=== PATIENT | male | born 1955 | race Caucasian/White ===

== ENCOUNTER → 2020-03-22 07:04 | Outpatient (CLI) | payer MEDICARE, SELFPAY ==
--- NOTE | ~2020-03-22 | MR_ITS ---
EXAMINATION: MR lumbar spine wo con EXAM DATE: 03/22/2020 07:41 INDICATION: M54.5 - Low back pain lbp,bilat leg pain . TECHNIQUE: Multi-sequential, multiplanar MR images of the lumbar spine were obtained without contrast . Sagittal T1, T2, T2 fat saturation images. Axial T2 weighted images. Comparison is made to prior examination from 11/18/2014. FINDINGS: There is moderate to severe disc disease at L5-S1 with 3 mm anterolisthesis, mild disc dise ase at the other lumbar levels. There are no suspicious marrow signal abnormalities. The conus medull jovanni terminates at the L1/2 level and has normal signal intensity and morphology. Paraspinal soft tis roberta is unremarkable. Level by level evaluation: T12-L1: Disc does not extend beyond the endplate margin. Facet arthropathy: Mild. Neural foraminal stenosis: No stenosis. Central canal stenosis: No stenosis. L1-L2: There is a mild diffuse disc bulge. Facet arthropathy: Mild. Neural foraminal stenosis: Mild left. Central canal stenosis: No stenosis. L2-L3: There is a minimal diffuse disc bulge. Facet arthropathy: Mild. Neural foraminal stenosis: Mild bilateral. Central canal stenosis: No stenosis. L3-L4: There is a mild diffuse disc bulge. Facet arthropathy: Mild to moderate. Neural foraminal stenosis: Mild to moderate bilateral. Central canal stenosis: Mild. L4-L5: There is a mild diffuse disc bulge. Facet arthropathy: Mild. Neural foraminal stenosis: Mild to moderate left, mild right. Central canal stenosis: Mild. L5-S1: There is a moderate diffuse disc bulge. Facet arthropathy: Mild to moderate. Neural foraminal stenosis: Moderate right, mild to moderate left. Central canal stenosis: Mild. Compared to 2014, difficult to appreciate any significant interval change. IMPRESSION: 1. Moderate to severe loss of L5-S1 disc height with grade 1 anterolisthesis. 2. Otherwise mild to moderate lumbar spondylosis. Reviewed, dictated and finalized at location A. 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
== END ==
PROVIDERS: PCP Family Medicine; Visit Provider Nurse Practitioner
DX: M47.817 Spondylosis without myelopathy or radiculopathy, lumbosacral region (principal); M47.815 Spondylosis without myelopathy or radiculopathy, thoracolumbar region; M48.07 Spinal stenosis, lumbosacral region; M48.05 Spinal stenosis, thoracolumbar region
CPT/HCPCS: 72148

== ENCOUNTER 2020-04-07 10:26 | Observation (INO) | payer MEDICARE, SELFPAY ==
[2020-04-07] VITALS (51 sets, daily range): BP systolic 104–143; BP diastolic 55–88; PULSE 55–81; RESP 12–20; TEMP 35.7–36.3; O2SAT 93–100
--- NOTE | ~2020-04-07 | XR_ITS ---
EXAMINATION: XR chest 2V EXAM DATE: 04/07/2020 11:58 INDICATION: Left-sided chest pain. Headache. TECHNIQUE: Frontal and lateral projections of the chest obtained and reviewed. Comparison is made to prior examination from 03/07/2016. FINDINGS: The lungs are clear. There are no pleural effusions. The cardiomediastinal silhouette is within normal limits. There is no pneumothorax suspected. The bones and soft tissues are unremarkab le. IMPRESSION: No acute cardiopulmonary findings. Reviewed, dictated and finalized at location A. 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
--- NOTE | 2020-04-07 10:33 | ECG_ITS ---
Measurements Intervals [place] Rate: 83 P: 21 ID: 160 QRS: 16 QRSD: 110 T: 75 QT: 359 QTc: 423 Interpretive Statements SINUS RHYTHM INTRAVENTRICULAR CONDUCTION DELAY NONSPECIFIC T-WAVE ABNORMALITY- HIGH LATERAL LEADS BORDERLINE ECG Electronically Signed On 04-07-2020 10:42:18 ASSISTANT MANAGER/EMBALMER by Nicola Torres D.O.
--- NOTE | 2020-04-07 11:04 | PC.NURSE ---
unable to obtain blood at triage
[2020-04-07 11:31] LABS: Basophils Absolute Auto 0.1 K/mm3 (0.0-0.1); Basophils Percent Auto 1.1 % (0.2-1.2); Eosinophils Absolute Auto 0.6 K/mm3 (0-0.3); Eosinophils Percent Auto 9.8 % (0-4.4); Hematocrit 37.2 % (42.0-52.0); Hemoglobin 12.1 g/dL (14.0-18.0); Immature Granulocyte Absolute 0.01 K/mm3 (0.00-0.031); Immature Granulocyte Percent A 0.2 % (0-0.5); Lymphocytes Absolute Auto 1.93 K/mm3 (0.9-3.2); Lymphocytes Percent Auto 29.4 % (18.3-44.2); Mean Corpuscular HGB Conc 32.5 g/dl (32-36); Mean Corpuscular Hemoglobin 30.2 pg (26-34); Mean Corpuscular Volume 92.8 fl (80-100); Mean Platelet Volume 9.5 fl (7.4-10.4); Monocytes Absolute Auto 0.4 K/mm3 (0.1-0.6); Monocytes Percent Auto 6.4 % (2.6-8.5); Neutrophils Absolute Auto 3.5 K/mm3 (1.3-6.7); Neutrophils Percent Auto 53.1 % (45.5-73.1); Platelet Count Result 251 k/mm3 (150-375); Red Blood Count 4.01 M/mm3 (4.6-6.20); Red Cell Distribution Width 13.6 % (11.5-14.5); White Blood Count 6.6 K/mm3 (4.5-10.0)
[2020-04-07] MEDS: ASPIRIN 81 MG CHEWABLE TABLET 324 MG PO (11:33)
[2020-04-07 11:41] LABS: Partial Thromboplastin Time 25.3 SECONDS (22.3-36.8)
[2020-04-07 11:42] LABS: Anion Gap 9 mmol/L (8-16); Blood Urea Nitrogen 23 mg/dL (9-20); Calcium 9.7 mg/dL (8.4-10.2); Carbon Dioxide 27 mmol/L (22-30); Chloride 101 mmol/L (98-107); Estimated CRCL calculation 81 ml/min; Estimated Glomerular Filt Rate > 60; Glucose 261 mg/dL (75-110); Potassium 3.9 mmol/L (3.4-5.0); Sodium 137 mmol/L (137-145)
[2020-04-07 11:54] LABS: Troponin I < 0.012 ng/mL (0.000-0.034)
--- NOTE | 2020-04-07 12:38 | ED.CHESTPAIN ---
HPI - Chest Pain General Chief Complaint: Chest Pain Stated Complaint: CP Time Seen by Provider: 04/07/20 12:14 Source: patient Mode of arrival: ambulatory Limitations: no limitations History of Present Illness HPI narrative: Patient 64-year-old male complaining of chest pain, left chest radiating to left arm, 8 out of 10 earlier, accompanied by diaphoresis, now resolved, started when he we woke up this morning. Patient denies shortness of breath, abdominal pain, nausea, vomiting, fever or chills. Patient history of coronary disease with stent placement. Patient spoke to Dr. Moses and was advised to come to the emergency room. Related Data Home Medications Medication Instructions Recorded Confirmed aspirin 81 mg tablet,delayed 81 mg PO DAILY 03/15/19 03/10/20 release atorvastatin 40 mg tablet 40 mg PO DAILY 03/15/19 03/10/20 chlorthalidone 25 mg tablet 25 mg PO DAILY 03/15/19 03/10/20 irbesartan 150 mg tablet 150 mg PO DAILY 03/15/19 03/10/20 modafinil 100 mg tablet See Rx Instructions PO QAM 03/15/19 03/10/20 nitroglycerin 0.4 mg sublingual 0.4 mg SUBLINGUAL Q5M PRN 03/15/19 03/10/20 tablet metoprolol succinate 50 mg mg PO DAILY tablet 11/29/19 03/10/20 tablet,extended release 24 hr gabapentin 100 mg capsule See Rx Instructions PO DAILY 03/10/20 03/10/20 Allergies Allergy/AdvReac Type Severity Reaction Status Date / Time Tetanus Vaccines and Toxoid Allergy Unknown Nausea Verified 03/10/20 08:10 Review of Systems Review of Systems: All systems reviewed & are unremarkable except as noted in HPI and below Constitutional: Constitutional: Denies body ache(s), Denies chills, Denies excessive sweating, Denies fatigue, Denies fever(s), Denies headache(s), Denies lethargy, Denies malaise, Denies weakness and Denies weight loss Eyes: Eyes: Denies blurry vision, Denies change in vision and Denies loss of vision ENT: Denies dizziness, Denies ear discharge, Denies headache(s), Denies lip swelling, Denies epistaxis, Denies nasal congestion, Denies neck pain, Denies throat swelling and Denies tongue swelling Cardiovascular: Cardiovascular: Denies diaphoresis, Denies rapid heart rate, Denies edema, Denies irregular heart rhythm, Denies lightheadedness, Denies palpitations, Denies dyspnea and Denies dyspnea on exertion Respiratory: Respiratory: Denies chest congestion, Denies cough, Denies hemoptysis, Denies dyspnea and Denies dyspnea on exertion Gastrointestinal: Gastrointestinal: Denies abdominal pain, Denies melena, Denies hematochezia, Denies diarrhea, Denies nausea, Denies vomiting and Denies hematemesis Musculoskeletal: Musculoskeletal: Denies abnormal gait, Denies deformity, Denies joint swelling, Denies limited range of motion, Denies neck pain and Denies numbness Neurologic: Denies Abnormal speech present, Denies abnormal gait, Denies confusion, Denies dizziness, Denies headache(s), Denies focal weakness, Denies loss of vision, Denies numbness, Denies Other visual disturbances, Denies Sensory deficit (Neuro) and Denies weakness Psychiatric: Psychiatric: Denies confusion, Denies depression, Denies auditory hallucinations, Denies homicidal ideation and Denies suicidal ideation Endocrine: Endocrine: Denies cold intolerance, Denies excessive sweating, Denies fatigue, Denies heat intolerance and Denies palpitations Hematologic/Lymphatic: Hematologic/Lymphatic: Denies easy bleeding and Denies easy bruising Allergic/Immunologic: Allergic/Immunologic: Denies lip swelling, Denies throat swelling and Denies tongue swelling [facility] Past Medical History Medical History (Updated 04/07/20 @ 15:14 by Frankie Casas MD) Absence epileptic syndrome, intractable, without status epilepticus Acute pain of both shoulders Angina pectoris, unspecified Basal cell carcinoma of face Basal cell carcinoma of skin of unspecified eyelid, including canthus Chest pain on exertion Chronic obstructive pulmonary disease, unspecified Chronic pelvic
[2020-04-07] MEDS: NITROGLYCERIN OINTMENT 1 INCH DOSE TRANSDERM (13:05)
[2020-04-07 14:11] LABS: Troponin I < 0.012 ng/mL (0.000-0.034)
--- NOTE | 2020-04-07 17:07 | ADMGEN ---
This patient, Blair Lauren, was admitted to IMU Room 201-01. Patient/family oriented to hospital policies and general routines including ID bracelet, bed and alarms, visiting hours, pain management, procedures, bathroom and other care routines, personal items, smoking policy, room service/diet, and visiting hours. Information on how to activate the Rapid Response Team has been discussed. Patient/Family are encouraged to report perceived risks to care and to ask questions if they do not understand what they are told or what they should do.
[2020-04-07 17:09] LABS: Troponin I < 0.012 ng/mL (0.000-0.034)
--- NOTE | 2020-04-07 17:51 | PC.NURSE ---
belongings locked in closet in room
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
[2020-04-07 20:31] LABS: Hemoglobin A1C 5.7 % (<5.7)
[2020-04-07 20:37] LABS: Glucose Point of Care 133 (65-105)
[2020-04-07] MEDS: ATORVASTATIN 40 MG TABLET PO (21:05)
[2020-04-07] MEDS: IRBESARTAN 150 MG TABLET PO (21:06)
[2020-04-07] MEDS: GABAPENTIN 400 MG CAPSULE PO (21:06)
[2020-04-07] MEDS: GABAPENTIN 100 MG CAPSULE PO (21:06)
[2020-04-07] MEDS: METOPROLOL SUCCINATE EXT REL 50 MG TABCR PO (21:07)
--- NOTE | 2020-04-07 21:27 | PC.NURSE ---
received pt from [facility] report from Katherine lawrence. Pt in room as of 2109.
[2020-04-07] MEDS: ACETAMINOPHEN 500 MG TABLET 1000 MG PO (23:18)
[2020-04-08] VITALS (10 sets, daily range): BP systolic 115–126; BP diastolic 69–76; PULSE 58–72; RESP 14–18; TEMP 35.6–36.4; O2SAT 94–96
--- NOTE | 2020-04-08 | ECHO_ITS ---
Patient Info Name: Blair Lauren Age: 64 years : 1955 Gender: Male Ht: 70 in Wt: 293 lbs BSA: 2.62 m2 HR: 60 bpm BP: 115 / 69 mmHg Heart Rhythm: Sinus Rhythm Technical Quality: Good Exam Date: 04/08/2020 8:17 AM Exam Location: [facility] Pulmonary Exam Room: 201 Patient Status: Inpatient Admit Date: 04/07/2020 Staff Ordering Physician: Megan Lorenzo NP Dental Appliance Repairer: Nellie Blackwell RDCS Attending Provider: Karthikeyan Peng MD Referring Physician: Maura HOWARD; Exam Type: CA echo doppler color flow Study Info Indications - cad /stents sob chest pain Complete two-dimensional, color flow and Doppler transthoracic echocardiogram is performed. History/Risk Factors Coronary Artery Disease (CAD) Yes Prior Interventions PCI: Yes Summary 1. Left ventricular systolic function is normal, estimated at 60-65%. 2. There is no increased left ventricular wall thickness. 3. The left ventricular diastolic function is grade I diastolic dysfunction. 4. Left atrial chamber dimension is mildly enlarged. 5. Right atrial chamber dimension is mildly enlarged. 6. There is no aortic valve stenosis. 7. There is trace mitral valve regurgitation. 8. There is trace tricuspid valve regurgitation. 9. Upper limits of normal pulmonary pressures with estimated pulmonary arterial systolic pressure of 35 mmHg. 10. There is small pericardial effusion. 11. Normal inferior vena cava with approximately 50% collapse upon inspiration consistent with normal right atrial pressure, 8 mmHg. Left Ventricle Left ventricular chamber dimension is normal. Left ventricular systolic function is normal, estimated at 60-65%. There is no increased left ventricular wall thickness. The left ventricular diastolic function is grade I diastolic dysfunction. Right Ventricle Right ventricular chamber dimension is normal. Right ventricular systolic function is normal. Prominent moderator band. Left Atria Left atrial chamber dimension is mildly enlarged. Right Atria Right atrial chamber dimension is mildly enlarged. Aortic Valve The aortic valve is probable trileaflet. There is no aortic valve stenosis. There is no aortic valve regurgitation. Pulmonic Valve The pulmonic valve is not well visualized. Mitral Valve The mitral valve has normal leaflets. There is trace mitral valve regurgitation. The mitral valve annulus is mildly calcified. Tricuspid Valve The tricuspid valve leaflets are normal. There is trace tricuspid valve regurgitation. Upper limits of normal pulmonary pressures with estimated pulmonary arterial systolic pressure of 35 mmHg. Pericardium/Pleural The pericardium appears normal. There is small pericardial effusion. Inferior Vena Cava Normal inferior vena cava with approximately 50% collapse upon inspiration consistent with normal right atrial pressure, 8 mmHg. Aorta The aortic root size at the sinus of Valsalva is normal. Left Ventricular Outflow Tract Name Value Normal LVOT 2D LVOT Diameter 2.1 cm LVOT Doppler LVOT Peak Gradient 4 mmHg
[2020-04-08 04:53] LABS: Basophils Absolute Auto 0.1 K/mm3 (0.0-0.1); Basophils Percent Auto 1.2 % (0.2-1.2); Eosinophils Absolute Auto 0.8 K/mm3 (0-0.3); Eosinophils Percent Auto 10.1 % (0-4.4); Hematocrit 36.3 % (42.0-52.0); Hemoglobin 11.7 g/dL (14.0-18.0); Immature Granulocyte Absolute 0.02 K/mm3 (0.00-0.031); Immature Granulocyte Percent A 0.3 % (0-0.5); Lymphocytes Absolute Auto 2.13 K/mm3 (0.9-3.2); Lymphocytes Percent Auto 28.8 % (18.3-44.2); Mean Corpuscular HGB Conc 32.2 g/dl (32-36); Mean Corpuscular Hemoglobin 29.8 pg (26-34); Mean Corpuscular Volume 92.6 fl (80-100); Mean Platelet Volume 9.7 fl (7.4-10.4); Monocytes Absolute Auto 0.7 K/mm3 (0.1-0.6); Neutrophils Absolute Auto 3.7 K/mm3 (1.3-6.7); Neutrophils Percent Auto 49.6 % (45.5-73.1); Platelet Count Result 251 k/mm3 (150-375); Red Blood Count 3.92 M/mm3 (4.6-6.20); Red Cell Distribution Width 13.8 % (11.5-14.5); White Blood Count 7.4 K/mm3 (4.5-10.0)
[2020-04-08 05:07] LABS: Alanine Aminotransferase 37 U/L (4-50); Albumin Level 4.1 g/dL (3.5-5.1); Alkaline Phosphatase 53 U/L (38-126); Anion Gap 8 mmol/L (8-16); Aspartate Amino Transferase 28 U/L (17-59); Bilirubin,Total 0.5 mg/dL (0.2-1.3); Blood Urea Nitrogen 21 mg/dL (9-20); Calcium 9.6 mg/dL (8.4-10.2); Carbon Dioxide 29 mmol/L (22-30); Chloride 101 mmol/L (98-107); Estimated CRCL calculation 88 ml/min; Estimated Glomerular Filt Rate > 60; Glucose 108 mg/dL (75-110); Lactate Dehydrogenase 298 U/L (313-618); Lipase 55 U/L (23-300); Magnesium 1.7 mg/dL (1.6-2.3); Potassium 3.9 mmol/L (3.4-5.0); Sodium 138 mmol/L (137-145)
[2020-04-08 08:19] LABS: Glucose Point of Care 117 (65-105)
[2020-04-08] MEDS: ASPIRIN 81 MG ENTERIC TABLET PO (08:49)
[2020-04-08] MEDS: CHLORTHALIDONE 25 MG TABLET PO (08:49)
[2020-04-08] MEDS: ACETAMINOPHEN 325 MG TABLET 650 MG PO (09:03)
--- NOTE | 2020-04-08 09:42 | PM.CNCAR ---
Assessment and Plan Assessment and plan (1) Chest pain: Code(s): R07.9 - Chest pain, unspecified Status: Acute Assessment and Plan: Self-limited, resolved spontaneously similar to but more intense than his typical angina. Ruled out for TX with negative serial enzymes, EKG without acute ischemic changes. Patient feels well would like to be discharged but recommend outpatient ischemic evaluation provided patient remains asymptomatic. If any recurrent chest pain suggestive of unstable angina may warrant invasive angiography this hospitalization. We discussed all these options in detail. Patient understands and all questions answered to his satisfaction. Continue home cardiovascular medical therapy. We discussed long-acting nitrate, however, he is comfortable this current regimen at this time. Provided he remains asymptomatic and feels well he will be discharged home per hospitalist service to contact the office Friday morning to set up a Lexiscan nuclear stress test to assess for myocardial ischemia. He has been advised should he have significant recurrent symptoms to present to the emergency department for evaluation once again. We did discuss the possibility of progressive/escalating symptoms and other risk for myocardial infarction in general. Understand this risk he wishes to be discharged home with close communication as appropriate. Continue aspirin 81 mg daily, Toprol XL 50 mg daily, irbesartan 150 mg daily, atorvastatin 40 mg at bedtime. (2) CAD (coronary artery disease): Code(s): I25.10 - Atherosclerotic heart disease of [place] coronary artery without angina pectoris Status: Acute Assessment and Plan: As above, continue aggressive medical therapy, antianginals as appropriate. Continue beta-carmen, nitrate, statin. Aggressive risk modification counseling. (3) Benign essential hypertension: Onset Date: ~1993 Code(s): I10 - Essential (primary) hypertension Status: Chronic Assessment and Plan: Stable, no acute issues at this time. (4) Mixed hyperlipidemia due to type 2 diabetes mellitus: Onset Date: ~2014 Code(s): E11.69 - Type 2 diabetes mellitus with other specified complication; E78.2 - Mixed hyperlipidemia Status: Chronic Assessment and Plan: Statin therapy. S risk modification counseling. (5) CALI (obstructive sleep apnea): Onset Date: ~2008 Code(s): G47.33 - Obstructive sleep apnea (adult) (pediatric) Status: Chronic Assessment and Plan: Compliant with BiPAP. (6) Type 2 diabetes mellitus with other circulatory complications: Code(s): E11.59 - Type 2 diabetes mellitus with other circulatory complications Status: Acute Assessment and Plan: Per hospitalist service. (7) Morbid (severe) obesity due to excess calories: Onset Date: 07/15/16 Code(s): E66.01 - Morbid (severe) obesity due to excess calories Status: Acute Assessment and Plan: Lifestyle modification counseling for weight loss, reduction in caloric intake. History of Present Illness History of Present Illness Consult date/time: Date of service: 04/08/20 09:42 Cardiology consultation at the request of Megan Lorenzo of the [facility] for our opinion regarding chest pain and history of CAD. Requesting physician: Megan Lorenzo NP Consult reason: chest pain Reason For Visit: chest pain Narrative: Patient is a very pleasant 64-year-old male with a history of significant sleep apnea compliant with BiPAP, history of CAD with prior stenting 3.5 x 18 mm Xience drug-eluting stent to 95% stenosis of 2nd obtuse marginal branch March 11, [address] Moses at [facility], hypertension, family history of premature atherosclerosis who states he was in his usual state of health he stated he began to feel unwell quite fatigued. He decided to go to bed early but then awoke few hours later
--- NOTE | 2020-04-08 10:37 | P.PCNCC_ITS ---
Cardiac Cath Procedure Note Date of procedure:: 04/08/20 Performing physician:: Altaf Laguna MD Assessment and Plan Additional Plan INDICATION: 1. NSTEMI HISTORY Patient presented with acute sever chest pain, rising cardiac enzymes, persistent pain despite NTG infusion PROCEDURES 1. Coronary angiogram 2. LHC 3. PTCA to proximal PDA Culprit lesion of NSTEMI 4. PTCA to proximal RCA ACCESS SITE Rt radial SEDATION: Versed 1 mg and Fentanyl 50 mcg and fentanyl start time 9:42, End 1035, patient observed by trained nurse and medication given under my supervision. PROCEDURE DETAILS Consent obtained and time out done. Access site prepped and draped in sterile fashion. Moderate sedation given with versed and fentanyl and tolerated well, see nurses note for doses Access obtained with modified Seldinger technique with no difficulty. Coronary angiogram was recorded using JR4 and TIG4 catheter in different angels LHC was done with TIG 4 catheter HEMODYNAMIC FINDINGS BP 130/80 LVEDP 5 No gradient across AV ANGIOGRAPHIC FINDINGS 1. Left main: mild 40% in mid left main, gives LAD and LCX 2. LAD: large vessel with proximal to mid LAD stent patent, LAD gives large diagonal with patent stent and severe 80% lesion after stent. 3. LCX: Non dominant vessel gives on large OM, OM branch with proximal diffuse 50% stenosis 4. RCA: Dominant vessel gives rPDA and rPL. Proximal RCA has 80% stenosis, mid R CA with patent stent, PDA has proximal 99% subtotal occlusion/ISR, followed by BISCUIT MAKER in apical PDA stent. Apical PDA received collaterals from LAD PCI DETAILS LESION #1: proximal PDA Pre intervention Lesion: acute subtotal occlusion of proximal PAD culprit lesion of NSTEMI, class C, SANDIP 1 Guide catheter: JR4 Anticoagulation: Heparin to target ACT > 250 sec Antiplatelet therapy: ASA and Ticagrelor given Guide wire: Samurai used to cross to distal vessel Balloon dilation was done with 2.0 * 15 mm balloon at 18 MIKIE Post intervention: residual stenosis 50% and SANDIP 3 flow established LESION #2 Pre intervention Lesion: sever proximal RCA ISR, 80% stenosis, unknown type and duration of stent, SANDIP 3 Guide catheter: JR4 Anticoagulation: Heparin to target ACT > 250 sec Antiplatelet therapy: ASA and Ticagrelor given Guide wire: Samurai used to cross to distal vessel Balloon dilation was done with [place] 3.5 * 15 mm balloon at 20 MIKIE Post intervention: residual stenosis 50% and SANDIP 3 flow, IFR was done for RCA and was 0.92 at end of procedure IFR to LAD and LCX Guide catheter CLS 3 IFR wire advanced into end of catheter and equalization done Wire advanced into LAD and LCX and IF measured 0.91 and 0.92 respectively. Wire removed and angiogram showed no dissection, perforation and SANDIP 3 flow. COMPLICATION: None Estimated blood loss: 30 ml patient tolerated procedure well, minor chest pain at end of procedure (05/14), awake, intact pulses and following commands CONCLUSION Acute sutotal occlusion of proximal PDA s/p PTCA sever proximal RCA ISR, s/t PTCA, final IFR in RCA 0.92, residual stenosis but needs cutting balloon or laser therapy in proximal RCA Residual small vessel disease, BISCUIT MAKER apical PDA, 90% lesion in mid rPL, 80% lesion in D1. RECOMMENDATION DAPT for at least one year Optimal medical therapy for CAD
--- NOTE | 2020-04-08 11:41 | PM.IMPN ---
Progress Note: A&P Assessment and Plan (1) Chest pain due to CAD: Code(s): I25.119 - Atherosclerotic heart disease of [place] coronary artery with unspecified angina pectoris Status: Acute Assessment and Plan: Patient's troponins are negative x3. He has had a history of having a coronary stent in the past. He has also had stress test in the past that were negative. He has had a cardiac catheterization after stent was placed and appeared to be patent. He is a patient of Dr. Moses nurse. Patient had relief of discomfort after he was given an aspirin and nitro. The patient stated that he does have nitro at home. The patient has multiple bulging disc and some chronic neck pain. I am wondering if this is in some type of discomfort due to his back problems. We also discuss the possibility of a PE. The patient is not hypoxic or tachypneic so after discussing this with the patient we decided to hold off on a CT ate this time. Further recommendation per Cardiology as they have been consulted. Will continue with p.r.n. nitro and his daily aspirin. I am holding his narcolepsy medicine at this time as the side effects could be chest pain. I ordered an echo for the patient. (2) Type 2 diabetes mellitus with other circulatory complications: Code(s): E11.59 - Type 2 diabetes mellitus with other circulatory complications Status: Acute Assessment and Plan: Will continue with patient's glipizide. Check his A1c and continue with sliding scale insulin. Patient has neuropathy continue with the gabapentin. (3) Other hyperlipidemia: Onset Date: ~2008 Code(s): E78.49 - Other hyperlipidemia Status: Chronic Assessment and Plan: Continue with atorvastatin (4) CALI (obstructive sleep apnea): Onset Date: ~2008 Code(s): G47.33 - Obstructive sleep apnea (adult) (pediatric) Status: Chronic Assessment and Plan: The patient sees a specialist in [place]. Feels that he needs his settings adjusted as well. He has not been able to return to the specialist due to the COVID outbreak. For now will continue with his current settings that he uses at home. The patient states that he is very diligent about using his CPAP machine. (5) Benign essential hypertension: Onset Date: ~1993 Code(s): I10 - Essential (primary) hypertension Status: Chronic Assessment and Plan: Continue with metoprolol and chlorthalidone. Continue with Avapro (6) Benign prostatic hyperplasia without lower urinary tract symptoms: Onset Date: ~2017 Code(s): N40.0 - Benign prostatic hyperplasia without lower urinary tract symptoms Status: Chronic Assessment and Plan: The patient had a cystoscopy in the past with urethral dilatation. Subjective Date/time seen: 04/08/20 11:42 Interval history: Patient was seen during the morning rounds in the morning. No sob or chest pain, mood stable. Review of Systems Review of Systems: All systems reviewed & are unremarkable except as noted in HPI and below Constitutional: Constitutional: Reports as per HPI and Reports no additional constitutional complaints Eyes: Eyes: Reports as per HPI and Reports no additional eye complaints ENT: Reports system reviewed and no additional complaints, except as documented and Reports Normal hearing present Cardiovascular: Cardiovascular: Reports no additional cardiovascular complaints Respiratory: Respiratory: Reports no additional respiratory complaints and Reports no additional respiratory complaints Gastrointestinal: Gastrointestinal: Reports as per HPI and Reports no additional gastrointestinal complaints Musculoskeletal: Musculoskeletal: Reports no additional musculoskeletal complaints Integumentary/Breasts: Skin/Breast: Reports system reviewed and no additional complaints, except as docu and Reports as per HPI Neurologic: Reports system reviewed and no additional compla
[2020-04-08 12:10] LABS: Glucose Point of Care 96 (65-105)
--- NOTE | 2020-04-09 01:14 | DS_ITS ---
DATE OF DISCHARGE: 04/08/2020 ADMITTING DIAGNOSES: 1. Chest pain. 2. Type 2 diabetes. 3. Hyperlipidemia. FINAL DIAGNOSES: 1. Coronary artery disease, atypical chest pain. 2. History of diabetes type 2. 3. History of hyperlipidemia. 4. History of obstructive sleep apnea. 5. History of hypertension. 6. History of benign prostatic hypertrophy. The patient is 64-year-old male with history of multiple medical problems including sleep apnea requiring CPAP treatment, history of hypertension, hyperlipidemia, coronary artery disease. The patient is admitted to have chest pain. PHYSICAL EXAMINATION: Normal. The patient has blood pressure of 126/67, temperature 36.3, pulse rate 81, respirations 18. LABORATORY DATA: Important lab data showed the patient has nonspecific ST-T changes, normal sinus rhythm. WBC count 6.6, hemoglobin 12.1, sodium 137, potassium 3.9. BUN and creatinine were normal. The patient had 3 sets of cardiac enzymes and troponin was negative. Chest x-ray was normal. After consultation with radiologist, mat linker, patient was discharged home in stable condition. Cardiac diet and activity as tolerated. Follow the primary care physician in about 1 week. Condition at time of discharge is stable. The patient is advised to continue his home medication and follow up the primary care physician in about 1 week. The patient is advised to take: 1. Aspirin 81 mg p.o. daily. 2. Atorvastatin 40 mg p.o. q. day. 3. Chlorthalidone 25 mg p.o. q. day. 4. Irbesartan 150 mg every night. 5. Modafinil 50 mg p.o. b.i.d. 6. Nitroglycerin sublingual tablet as needed q.5 minutes. 7. Metoprolol 50 mg everyday. 8. Gabapentin 500 mg everyday. 9. The patient is also advised to take glipizide 2.5 mg p.o. q. day. Condition at time of discharge is stable. Activity as tolerated. Follow up with primary care physician and Cardiology outpatient next week. D I MT: Levi
== END 2020-04-08 12:54 | disposition home or self-care (01) ==
LOC: ANHED 15:14 → ANHIMU 16:30
PROVIDERS: Emergency Medicine; Nurse Practitioner; Admitting Provider Internal Medicine; Emergency Provider Emergency Medicine; PCP Family Medicine; Visit Provider Internal Medicine
DX: I25.119 Atherosclerotic heart disease of native coronary artery with unspecified angina pectoris (principal); E11.59 Type 2 diabetes mellitus with other circulatory complications; E78.49 Other hyperlipidemia; G47.33 Obstructive sleep apnea (adult) (pediatric); I13.0 Hypertensive heart and chronic kidney disease with heart failure and stage 1 through stage 4 chronic kidney disease, or unspecified chronic kidney disease; N40.0 Benign prostatic hyperplasia without lower urinary tract symptoms; I31.3 Pericardial effusion (noninflammatory); R07.9 Chest pain, unspecified; G40.A19 Absence epileptic syndrome, intractable, without status epilepticus; J44.9 Chronic obstructive pulmonary disease, unspecified; E66.01 Morbid (severe) obesity due to excess calories; Z68.41 Body mass index [BMI] 40.0-44.9, adult; Z79.01 Long term (current) use of anticoagulants; Z79.82 Long term (current) use of aspirin; Z79.899 Other long term (current) drug therapy; Z99.89 Dependence on other enabling machines and devices; Z95.5 Presence of coronary angioplasty implant and graft
CPT/HCPCS: 36415; 71046; 80048; 80053; 82728; 83036; 83615; 83690; 83735; 84443; 84484; 85025; 85610; 85730; 93005; 93306; 94660; 99285; A9270; G0378

== ENCOUNTER 2020-05-12 02:04 | Outpatient (CLI) | payer MEDICARE, SELFPAY ==
[2020-05-12 17:23] LABS: SARS-CoV-2 RNA PCR Negative
== END 2020-05-12 02:05 | disposition home or self-care (01) ==
LOC: ANHCOVIDDT 02:05
PROVIDERS: PCP Family Medicine; Visit Provider Specialist
DX: Z01.812 Encounter for preprocedural laboratory examination (principal); Z20.822 Contact with and (suspected) exposure to COVID-19
CPT/HCPCS: C9803; U0003

== ENCOUNTER 2020-05-15 01:28 | Day surgery (SDC) | payer MEDICARE, SELFPAY ==
[2020-05-12 16:35] VITALS: BMI 43.0
[2020-05-15] VITALS (8 sets, daily range): BP systolic 103–127; BP diastolic 59–90; PULSE 60–77; RESP 13–24; TEMP 36–36.7; O2SAT 92–98; BMI 42.6
[2020-05-15 09:09] LABS: Basophils Absolute Auto 0.1 K/mm3 (0.0-0.1); Basophils Percent Auto 1.4 % (0.2-1.2); Eosinophils Absolute Auto 0.9 K/mm3 (0-0.3); Eosinophils Percent Auto 12.7 % (0-4.4); Hemoglobin 12.4 g/dL (14.0-18.0); Immature Granulocyte Absolute 0.01 K/mm3 (0.00-0.031); Immature Granulocyte Percent A 0.1 % (0-0.5); Lymphocytes Absolute Auto 2.04 K/mm3 (0.9-3.2); Lymphocytes Percent Auto 29.4 % (18.3-44.2); Mean Corpuscular HGB Conc 32.6 g/dl (32-36); Mean Corpuscular Hemoglobin 29.7 pg (26-34); Mean Corpuscular Volume 91.1 fl (80-100); Mean Platelet Volume 9.2 fl (7.4-10.4); Monocytes Absolute Auto 0.7 K/mm3 (0.1-0.6); Monocytes Percent Auto 9.7 % (2.6-8.5); Neutrophils Absolute Auto 3.2 K/mm3 (1.3-6.7); Neutrophils Percent Auto 46.7 % (45.5-73.1); Platelet Count Result 278 k/mm3 (150-375); Red Blood Count 4.17 M/mm3 (4.6-6.20); Red Cell Distribution Width 13.8 % (11.5-14.5); White Blood Count 6.9 K/mm3 (4.5-10.0)
[2020-05-15 09:18] LABS: Prothrombin Time 13.8 Seconds (11.1-14.7)
[2020-05-15 09:22] LABS: Anion Gap 8 mmol/L (8-16); Blood Urea Nitrogen 22 mg/dL (9-20); Calcium 9.3 mg/dL (8.4-10.2); Carbon Dioxide 29 mmol/L (22-30); Chloride 103 mmol/L (98-107); Estimated CRCL calculation 82 ml/min; Estimated Glomerular Filt Rate > 60; Glucose 117 mg/dL (75-110); Potassium 4.3 mmol/L (3.4-5.0); Sodium 140 mmol/L (137-145)
--- NOTE | 2020-05-15 09:24 | SUR.PREOP ---
Patient arrives ambulatory to [facility] room 5 for planned cardiac cath today. Patient A & O x 4 upon arrival, denies pain, VSS. PIV initiated and labs obtained. Consent signed. Patient updated on plan of care and verbalizes understanding. Will continue to closely monitor patient.
--- NOTE | 2020-05-15 09:57 | WPDMODSED ---
Moderate Sedation Note-Pt Data Patient Data Diagnosis: Coronary artery disease with previous circumflex stenting Morbid obesity Present Complaint: Intermittent chest pain largely atypical of angina Procedure to be performed/Plan: Mildly abnormal nuclear stress test Allergies Allergy/AdvReac Type Severity Reaction Status Date / Time Tetanus Vaccines and Toxoid Allergy Unknown Nausea Verified 05/12/20 16:39 Home Medications Medication Instructions Recorded Confirmed Type aspirin 81 mg tablet,delayed 81 mg PO DAILY 03/15/19 05/12/20 History release atorvastatin 40 mg tablet 40 mg PO HS 03/15/19 05/12/20 History chlorthalidone 25 mg tablet 25 mg PO DAILY 03/15/19 05/12/20 History irbesartan 150 mg tablet 150 mg PO HS 03/15/19 05/12/20 History modafinil 100 mg tablet 50 mg PO BID 03/15/19 05/12/20 History nitroglycerin 0.4 mg sublingual 0.4 mg SUBLINGUAL Q5M PRN 03/15/19 05/12/20 History tablet metoprolol succinate 50 mg 50 mg PO HS tablet 11/29/19 05/12/20 History tablet,extended release 24 hr gabapentin 100 mg capsule 500 mg PO HS 03/10/20 05/12/20 History glipizide 2.5 mg PO QPM 04/07/20 05/12/20 History blood sugar diagnostic See Rx Instructions .ROUTE 05/01/20 05/12/20 Rx .COMPLEX #100 strip lancets See Rx Instructions .ROUTE 05/01/20 05/12/20 Rx .COMPLEX #100 ea Current Medications: Active Medications Sodium Chloride (Normal Saline Iv) 500 mls @ 100 mls/hr IV CONT .Q5H MARQUITA Sedation/Anesthesia: No previous sedation/anesthesia problems (including family history). [facility] Past Medical History Medical History Absence epileptic syndrome, intractable, without status epilepticus Acute pain of both shoulders Angina pectoris, unspecified Basal cell carcinoma of face Basal cell carcinoma of skin of unspecified eyelid, including [place]hus Chest pain on exertion Chronic obstructive pulmonary disease, unspecified Chronic pelvic pain in male Class 3 severe obesity with serious comorbidity and body mass index (BMI) of 45.0 to 49.9 in adult (~2007) Concussion with loss of consciousness of 30 minutes or less, sequela Continuous LUQ abdominal pain Coronary artery disease involving [place] coronary artery of [place] heart with unstable angina pectoris Coronary artery disease involving [place] heart without angina pectoris Dermatofibroma Encounter for counseling regarding immunization (~2017) Encounter for prostate cancer screening (~2007) History of basal cell carcinoma (BCC) Hypertensive heart disease with heart failure and stage 3 chronic kidney disease (~2015) Left leg swelling (~2016) skilled nursing current use of anticoagulants with INR goal of 2.5-3.5 (~2015) Lumbosacral radiculopathy due to degenerative joint disease of spine (~2015) MCI (mild cognitive impairment) with memory loss (~2018) Migraine with aura, not intractable, without status migrainosus (~2014) Mixed hyperlipidemia due to type 2 diabetes mellitus (~2014) Muscle strain (~2017) Negative depression screening (~2018) Numbness of face (~2018) CALI (obstructive sleep apnea) (~2008) Other chronic pain (~2008) Other hyperlipidemia (~2008) Other intervertebral disc disorders, lumbosacral region (~2008) Post-traumatic hypersomnia Primary osteoarthritis involving multiple joints (~2008) Restless legs syndrome (~2014) Screening for colon cancer (~2017) Screening for diabetes mellitus (~2017) Skin cancer screening (~2017) Skin neoplasm malignant Stress due to family tension (~2017) Testosterone insufficiency (~2015) Surgical History Surgical History H/O cystoscopy With urethral dilatation History of removal of pigmented skin lesion Mainly on the face Presence of coronary angioplasty implant and graft Status post colonoscopy with polypectomy (~2017) Family History Family History Mother
--- NOTE | 2020-05-15 10:40 | WPDCARDPROC ---
Cardiac Cath Procedure Note Date of procedure:: 05/15/20 Performing physician:: Nathan Moses MD Indication:: History of coronary artery disease with previous PCI to the circumflex 9 years ago atypical chest pain abnormal nuclear stress Brief clinical history:: this is a 64-year-old man with coronary disease who was treated with stenting of his circumflex and 2012. He has done very well since then the patient is also morbidly obese and diabetic. He has some recent intermittent chest pain that is by history atypical of angina a Lexiscan nuclear study was interpreted as showing an anterior apical perfusion abnormality Procedure Procedure performed:: left ventriculography coronary angiography Angio-Seal to right femoral artery Sedation/Medication given:: fentanyl 50 mg Versed 2 mg case start time 1022 a.m. case end time 10:36 a.m. sedation provided by Gabreila Bailey RN, trained observer Access site:: right femoral artery Estimated blood loss:: 10-15 cc Procedure note:: patient brought to the cardiac catheterization lab where the right femoral triangle was prepared in the usual sterile fashion. Anesthesia was given 1% lidocaine infiltrated locally. Using the modified Seldinger technique a 5 [place] sheath was placed into the right femoral artery after this left heart catheterization was carried out the patient initially had a pigtail catheter used to perform a left ventriculogram in the CH projection as well as to document left-sided hemodynamics. Following this the left coronary was injected using a standard 5 [place] FL4 catheter. The right coronary was injected using a standard 5 [place] JR4 catheter. After this the cineangiograms were then reviewed. The case was terminated. An angiogram was done of the femoral artery through the sheath after which a 6 [place] Angio-Seal device was used to secure hemostasis. 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 Findings:: Hemodynamics: Central aortic pressure is 105/58 left ventricle 105/0 end-diastolic 12 a no systolic gradient on pullback across the aortic valve. Left ventricle: The LV is normal in size all segments contract appropriately the global ejection fraction by visual estimation is 55%. Left main coronary artery is widely patent and large in caliber the LAD is a medium caliber vessel extending down to around the apex also providing the apical inferior wall as well. The LAD and its branches are angiographically unremarkable. The circumflex is a large caliber vessel giving rise to the marginal branches the circumflex in its mid to distal portion has previously deployed stent material the entire circumflex including this previous lesion is found to be widely patent. There is no evidence of progressive disease in the circumflex or loss of lumen in the stented segment right coronary artery is large in caliber and dominant to the posterior circulation. The right coronary is free of significant disease in the 2nd portion there is a 30% stenosis. Conclusion:: 1. Right coronary dominant circulation with no significant coronary lesions 2. previously stented circumflex site remains widely patent 9 years later 3. minimal plaquing in the mid RCA as described above 4. normal left ventricular systolic function 5. successful Angio-Seal to right femoral artery Nathan Moses MD [facility]
--- NOTE | 2020-05-15 13:03 | PM.DS ---
DS: Admitting Diagnosis Admitting Diagnosis Admitting Diagnosis: Coronary artery disease with previous PCI to the circumflex Atypical chest pain Abnormal nuclear stress test DS: Discharge Diagnosis Discharge Diagnosis (1) Chest pain: Code(s): R07.9 - Chest pain, unspecified Status: Acute (2) CAD (coronary artery disease): Code(s): I25.10 - Atherosclerotic heart disease of [place] coronary artery without angina pectoris Status: Acute DS: Summary Hospital Course Reason for hospitalization: Left heart catheterization Hospital Course: 64-year-old man was admitted today for elective left heart catheterization to investigate an abnormal nuclear stress test. He has a history of coronary disease with stenting of his circumflex 9 years ago. He has done well since then. Principal comorbidity and also includes morbid obesity. The patient has been reporting symptoms of intermittent chest pain that are atypical of angina. A nuclear stress test was done as an outpatient suggesting evidence of anteroseptal ischemia. For this reason for a follow-up angiogram was recommended for today. Patient underwent left heart catheterization via the right groin without any complications. He is found to have patent coronary arteries the stented segment of the circumflex remains widely patent with no loss of lumen he has a modest 30% area of stenosis in the midportion of the large dominant RCA. Left ventricular function was normal. His stress test is obviously a false positive and his symptoms are not related to ischemia. An Angio-Seal device was done of the femoral artery at the conclusion of his angiogram following bedrest he is being discharged home in good condition. Follow-up in the office will be as previously scheduled in 6 months from now. Status at Discharge Functional status at discharge: independent ambulation Time Spent with Patient Time attestation: Total time spent providing and/or coordinating discharge services: Exam Const: General: comfortable and no acute distress Other: Pleasant overweight gentleman no apparent distress HENMT: Mouth: Yes moist mucous membranes Eyes: Sclera: sclerae normal Pupils: Equal, round and reactive pupils present Neck: Neck: supple and no JVD Thyroid: thyroid normal Resp: Effort & Inspection: normal respiratory effort Auscultation: clear to auscultation bilaterally Cardio: Rate: regular rate Rhythm: regular rhythm Other: PMI not palpable no gallop no murmur no rub GI: GI Palp: Yes Soft to palpation Auscultation: normal bowel sounds Skin: General skin exam: normal color Extrem: General: normal to inspection DS: Data Data Completed and Pending Labs on day of discharge: Labs from last 24 hours 05/15/20 05/15/20 05/15/20 08:59 08:59 08:59 WBC 6.9 RBC 4.17 L Hgb 12.4 L Hct 38.0 L MCV 91.1 MCH 29.7 MCHC 32.6 RDW 13.8 Plt Count 278 MPV 9.2 Immature Gran % (Auto) 0.1 Neut % (Auto) 46.7 Lymph % (Auto) 29.4 [place] % (Auto) 9.7 H Eos % (Auto) 12.7 H Baso % (Auto) 1.4 H Lymph # (Auto) 2.04 [place] # (Auto) 0.7 H Eos # (Auto) 0.9 H Baso # (Auto) 0.1 Abs Immat Gran (auto) 0.01 Absolute Neuts (auto) 3.2 Absolute Nucleated RBC 0.0 Nucleated RBC % 0.0 PT 13.8 INR 1.0 Sodium 140 Potassium 4.3 Chloride 103 Carbon Dioxide 29 Anion Gap 8 BUN 22 H Creatinine 1.10 Estim Creat Clear Calc 82 Estimated GFR > 60 Glucose 117 H Calcium 9.3 Discharge Plan Discharge Patient Disposition: Home, Self-Care Stand Alone Forms: General Discharge Instructions Discharge Medications: No Action modafinil 100 mg tablet 50 mg PO BID RF: 0 aspirin [Adult Low Dose Aspirin] 81 mg tablet,delayed release (DR/EC) 81 mg PO DAILY RF: 0 atorvastatin 40 mg tablet 40 mg PO HS RF: 0 nitroglycerin 0.4 mg tablet, sublingual 0.4 mg SUBLINGUAL Q5M PRN (Reas
--- NOTE | 2020-05-15 14:04 | SUR.PHASEII ---
Patient discharged via wheelchair by staff and picked up by via vehicle. PIV removed intact. Patient denies pain at time of discharge. No bleeding noted on dressing, site soft and nontender. Palpable distal pulse. Patient given discharge instructions and verbalizes understanding of all education provided, including follow up care, wound care, and S/S of heart attack.
== END 2020-05-15 14:00 | disposition home or self-care (01) ==
PROVIDERS: PCP Family Medicine; Visit Provider Specialist
PROC: 4A023N7 Measurement of Cardiac Sampling and Pressure, Left Heart, Percutaneous Approach (ICD-10-PCS; CPT 93452; principal; 2020-05-15 10:00)
DX: I25.10 Atherosclerotic heart disease of native coronary artery without angina pectoris (principal); R07.89 Other chest pain; R94.39 Abnormal result of other cardiovascular function study; I13.0 Hypertensive heart and chronic kidney disease with heart failure and stage 1 through stage 4 chronic kidney disease, or unspecified chronic kidney disease; I50.9 Heart failure, unspecified; E11.22 Type 2 diabetes mellitus with diabetic chronic kidney disease; Z79.82 Long term (current) use of aspirin; J44.9 Chronic obstructive pulmonary disease, unspecified; N18.30 Chronic kidney disease, stage 3 unspecified; E78.2 Mixed hyperlipidemia; G47.33 Obstructive sleep apnea (adult) (pediatric); G40.909 Epilepsy, unspecified, not intractable, without status epilepticus; Z79.01 Long term (current) use of anticoagulants; Z95.1 Presence of aortocoronary bypass graft; E66.01 Morbid (severe) obesity due to excess calories; Z68.41 Body mass index [BMI] 40.0-44.9, adult; Z95.5 Presence of coronary angioplasty implant and graft
CPT/HCPCS: 36415; 80048; 85025; 85610; 93458; C1760; C1887; C1894; C9803; G0269; J1644; J2250; J3010; J7040; U0003

== ENCOUNTER → 2020-05-18 10:39 | Outpatient (CLI) | payer MEDICARE, SELFPAY ==
--- NOTE | ~2020-05-18 | MR_ITS ---
EXAMINATION: MR cervical spine wo con EXAM DATE: 05/18/2020 11:26 INDICATION: Cervical degenerative disc disease. Neck pain. Bilateral hand numbness. TECHNIQUE: Multi-sequential, multiplanar MR images of the cervical spine were obtained without contra st. Axial T2, axial T2 MERGE sequence. Sagittal T1, T2, T2 fat saturation images also obtained. Cor relation is made to CT cervical spine 04/19/2017. FINDINGS: Mild to moderate diffuse cervical disc disease. The vertebral bodies are aligned in the AP dimension. The spinal cord signal intensity and intrinsic morphology is normal. Cervicomedullary estela ction is normal in appearance. There are no suspicious marrow signal abnormalities. There is approxim ately 5 mm pontine T2 hyperintensity most likely an old infarction. This was identified on previous b rain MRI exams, may be unchanged in size but consider follow-up MR brain without contrast for direct comparison Level by level evaluation: C2-C3: Disc does not extend beyond the endplate margin. Uncovertebral joint arthropathy: Mild to moderate right, mild left. Facet joint arthropathy: Moderate left, mild to moderate right. Neural foraminal stenosis: Mild right. Central canal stenosis: No stenosis. C3-C4: There is a minimal diffuse disc bulge. Uncovertebral joint arthropathy: Mild to moderate bilateral. Facet joint arthropathy: Mild to moderate. Neural foraminal stenosis: Moderate left, mild to moderate right. Central canal stenosis: Mild. C4-C5: There is a minimal diffuse disc bulge. Uncovertebral joint arthropathy: Mild to moderate right, mild left. Facet joint arthropathy: Mild to moderate right, mild left. Neural foraminal stenosis: Moderate right, mild to moderate left. Central canal stenosis: No stenosis. C5-C6: There is a mild diffuse disc bulge. Uncovertebral joint arthropathy: Moderate bilateral. Facet joint arthropathy: Mild to moderate bilateral. Neural foraminal stenosis: Mild to moderate bilateral. Central canal stenosis: Mild bilateral. C6-C7: There is a mild diffuse disc bulge. Uncovertebral joint arthropathy: Mild to moderate. Facet joint arthropathy: Mild bilateral. Neural foraminal stenosis: Mild right. Central canal stenosis: No stenosis. C7-T1: Disc does not extend beyond the endplate margin. Uncovertebral joint arthropathy: None. Facet joint arthropathy: Mild to moderate right, mild left. Neural foraminal stenosis: No stenosis. Central canal stenosis: No stenosis. IMPRESSION: 1. Small nonspecific [place] T2 hyperintensity most likely old infarction; consider follow-up nonemerge nt MR brain without contrast to compare with study from 2016. 2. Mild to moderate cervical spondylosis. Reviewed, dictated and finalized at location B. COMMUNICATIONS NETWORK ENGINEER IMPRESSION: 1. Small nonspecific rodrigo T2 hyperintensity most likely old infarction; consid er follow-up nonemergent MR brain without contrast to compare with study from 2 016. 2. Mild to moderate cervical spondylosis.
== END ==
PROVIDERS: PCP Family Medicine
DX: M50.30 Other cervical disc degeneration, unspecified cervical region (principal); M47.892 Other spondylosis, cervical region
CPT/HCPCS: 72141

== ENCOUNTER → 2020-06-20 07:42 | Outpatient (CLI) | payer MEDICARE, SELFPAY ==
--- NOTE | ~2020-06-20 | MR_ITS ---
EXAMINATION: MR brain/brain stem wo con DATE: 06/20/2020 08:24 INDICATION: Mainstem infarction with dizziness, vision problems and cognitive issues. TECHNIQUE: Magnetic resonance imaging (MRI) of the brain and brainstem was performed without intraven ous contrast. Sequences included sagittal and axial T1-weighted SE, axial diffusion-weighted FS SE, a xial T2*-weighted GRE, axial T2-weighted FLAIR, and axial T2-weighted FSE. Apparent diffusion coeffic ient (ADC) maps were created. COMPARISON: 11/13/2017 FINDINGS: There are no areas of restricted diffusion to suggest acute infarction. No intracranial hemorrhage or abnormal intracranial mass lesion. Again seen are scattered areas of nonspecific increased T2-weight ed signal intensity in the cerebral white matter and right side of the rodrigo which is within normal li mits for patient age. There are no intraparenchymal signal abnormalities seen on the other pulse sequ ences. The ventricles are symmetric and normal in size. There are no abnormal extra-axial fluid colle ctions. Flow voids are seen in the cerebral arteries on the T2-weighted sequences consistent with the ir expected patency. Mild mucosal thickening in the bilateral ethmoid and right maxillary sinuses Vis ualized orbits and soft tissues are unremarkable. IMPRESSION: 1. Normal aging brain. No acute intracranial process. Reviewed, dictated and finalized at location A. ARCH PROGRAM MANAGER
== END ==
PROVIDERS: PCP Family Medicine
DX: I63.9 Cerebral infarction, unspecified (principal)
CPT/HCPCS: 70551

== ENCOUNTER 2020-07-25 13:58 | Outpatient (CLI) | payer MEDICARE, SELFPAY ==
--- NOTE | ~2020-07-25 | CT_ITS ---
EXAMINATION: CT abdomen pelvis w con EXAM DATE: 07/25/2020 15:19 INDICATION: R10.2 - Pelvic and perineal pain. TECHNIQUE: Spiral CT of the abdomen and pelvis was performed following intravenous injection of 100 m L Omnipaque 350. Axial, coronal and sagittal images were reviewed. Difficult to identify any contras t in the abdomen. Reportedly was difficult to obtain IV access. Patient did not complain of any arm d iscomfort until after the contrast was already administered, but IV must have infiltrated. Was no sig nificant swelling in the region but a warm compress was applied. After reviewing these images, and ba sed based on indication it was decided that we did not need to place another IV and readministered an other dose of contrast. The dose-length product (DLP) for this examination was 1691.46 mGy-cm. The e xposure was tailored according to patient size (auto mA exposure control), and iterative reconstructi on (ASIR) was used as additional dose reduction technique. Comparison is made to prior examination fr om 04/19/2017. FINDINGS: Peroneal region unremarkable. There is mild hepatic steatosis without suspicious focal les ion identified. Spleen, adrenal glands, pancreas are unremarkable. Gallbladder is unremarkable. No biliary obstruction. There is punctate left nephrolithiasis. No ureteral stones or hydronephrosis. There is mild prostatomegaly. The bladder is unremarkable. There is no retroperitoneal or pelvic ly mphadenopathy. There is mild scattered arteriosclerotic disease. The appendix is normal. There is mild sigmoid colonic diverticulosis. There is no adjacent inflammat ory change to suggest diverticulitis. The stomach and small bowel are unremarkable. There is expecte d amount of colonic stool. No free intraperitoneal gas. The heart is normal in size. There are n o pericardial or pleural effusions. The lung bases are unremarkable. There are no osteoblastic or o steolytic lesions identified. IMPRESSION: 1. No acute intra-abdominal findings. 2. Punctate left nephrolithiasis. 3. Mild hepatic steatosis. 4. Mild colonic diverticulosis. 5. Mild prostatomegaly. Reviewed, dictated and finalized at location A.
[2020-07-25 15:22] LABS: Estimated Glomerular Filt Rate > 60
== END 2020-07-25 13:59 | disposition home or self-care (01) ==
LOC: ANHIMG 13:59
PROVIDERS: PCP Family Medicine; Visit Provider Family Medicine
DX: R10.2 Pelvic and perineal pain (principal); R10.31 Right lower quadrant pain; K76.0 Fatty (change of) liver, not elsewhere classified; K57.30 Diverticulosis of large intestine without perforation or abscess without bleeding; N40.0 Benign prostatic hyperplasia without lower urinary tract symptoms
CPT/HCPCS: 74177; Q9967

== ENCOUNTER 2020-08-10 09:00 | Outpatient (RCR) | payer MEDICARE, SELFPAY ==
--- NOTE | 2020-06-30 15:09 | PTOPEVAL ---
Thank you for referring Blair Lauren to [facility].? The patient is scheduled to be seen for therapy? 2 x/week for 6 weeks. Please review, sign, date and return this plan of care ASH. I agree with and certify that the following plan of care is medically necessary. Referring Physician Date Referring Provider: Dr. Liang Fox MD Evaluation Information Problem Diagnosis DDD neck and lumbar region Onset 10-15 yrs Additional Evaluation Detail He had a CVA 2016 He is performing the stretching program issued by therapy 5 year ago. Subjective Information He reports he has been having Query Text:As Reported By Patient/ pain for 10-15 years with Family progression of pain. He reports limitations with standing >10 min, sitting > 45 minutes, community walking, lifting and carrying objects. He reports limitations with driving, reading and sleeping due to neck pain. He sleeps on a wedge with improved tolerance with sleeping. He sleeps 5-6 hrs of sleep due to pain. He has been tolerating 10-15 min on the eliptical. He wants to walk but the weather has prevented outdoor activities. He is unable to tolerate yardwork due to pain. He has gained 50# due to progressive decline with activities. Diagnostic Tests MRI For This Problem Yes: Mild to moderate cervical spondylosis. Previous Treatments Previous Treatments For This Problem 5 yrs ago Pain Assessment Bilateral Neck Reported Pain Level 9 Pain Description Aching,Numbness,Pressure, Radiating,Tender on Palpation, Tightness Pain Radiation Left Arm,Right Arm Pain Frequency Chronic,Continuous Lowest Pain Intensity 7 Greatest Pain Intensity 10 Pain Aggravating Factors ADL's,Bending,Exercise/ Activity,Lifting,Prolonged Position,Sitting,Supine, Walking,Weight Bearing/ Standing Pain Behaviors None Bilateral Lower Back Reported Pain Le
--- NOTE | 2020-08-10 14:14 | PTOPEVAL ---
Thank you for referring Blair Lauren to [facility] [place] [facility] Pt has received 10 therapy visits from 06/30/20 to 08/11/20 to address back and neck pain. He demonstrates improved motion, improve pain, improved tolerance with daily activities. He demonstrates indep with his home program. He has partially achieved his therapy goals at this time. Will D/C skilled therapy services at this time. Please review, sign, date and return this discharge summary ASH. I agree with and certify that the following plan of care is medically necessary. Referring Physician Date Referring Provider: Dr. Liang Fox MD Physical Therapy Discharge Note Diagnosis DDD neck and lumbar region Onset 10-15 yrs Additional Evaluation Detail He had a CVA 2016 He is performing the stretching program issued by therapy 5 year ago. He reports he has been having pain for 10-15 years with progression of pain. Subjective Information He has received 2nd injection Query Text:As Reported By Patient/ for his low back. He will also Family be receiving injections for his neck. He reports limitations with standing >10 min, sitting > 1 hr, community walking, lifting and carrying objects. He reports limitations with driving, reading and sleeping due to neck pain. He limits his lifting to 10# due to pain. He tries to use good body mechanics with lifting activities. He has been tolerating 20 min on the eliptical with mild SOB due to COPD. He has been performing walking outside. He is performing some type of exercises daily. He is performing the stretching in the morning before activties. He went to [employer] and was able to walk for 3 days, but had increased pain requiring using of scooter. Pain Assessment Bilateral Neck Reported Pain Level 6 Pain Description Aching,Dull,Numbness,Radiating ,Shooting,Tightness Pain Radiation Left Arm,Neck,Right Arm Pain Frequency Chronic,Continuous Lowest Pain Intensity 5 Greatest Nick
== END 2020-08-14 07:54 | disposition home or self-care (01) ==
LOC: ANHPT 09:00
PROVIDERS: PCP Family Medicine
DX: M50.30 Other cervical disc degeneration, unspecified cervical region (principal); M51.36 Other intervertebral disc degeneration, lumbar region
CPT/HCPCS: 97014; 97110; 97140; 97162; G0283

== ENCOUNTER 2021-01-24 14:30 | Outpatient (RCR) | payer MEDICARE, SELFPAY | END 2021-02-28 11:54 | disposition home or self-care (01) | LOC: ANHDMC 14:30 | PROVIDERS: PCP Family Medicine; Visit Provider Nurse Practitioner | DX: E11.9 Type 2 diabetes mellitus without complications (principal); Z71.89 Other specified counseling | CPT/HCPCS: G0108; G0109 ==

== ENCOUNTER 2021-04-10 09:59 | Outpatient (RCR) | payer MEDICARE, SELFPAY | END 2021-04-10 16:05 | disposition home or self-care (01) | LOC: ANHDMC 09:59 | PROVIDERS: PCP Family Medicine; Visit Provider Nurse Practitioner | DX: E11.9 Type 2 diabetes mellitus without complications (principal); Z71.89 Other specified counseling | CPT/HCPCS: G0108 ==

== ENCOUNTER → 2021-05-28 13:38 | Outpatient (CLI) | payer MEDICARE, SELFPAY ==
--- NOTE | ~2021-05-28 | XR_ITS ---
XR hand LT min 3V DATE: 05/28/2021 14:01 INDICATION: Left wrist and hand pain TECHNIQUE: 3 views COMPARISON: None FINDINGS: There is polyarticular osteoarthritis, involving the first carpometacarpal, first and fifth metacarpal and multiple interphalangeal joints in particular, most prominent at the distal interphal angeal joint of the second digit. No fracture, dislocation, periosteal reaction or bone destruction or chondrocalcinosis is evident. IMPRESSION: Polyarticular osteoarthritis Reviewed, dictated and finalized at location A. 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
--- NOTE | ~2021-05-28 | XR_ITS ---
XR wrist LT min 3V DATE: 05/28/2021 14:01 INDICATION: Left wrist pain TECHNIQUE: 4 views COMPARISON: None FINDINGS: There is osteoarthritis at the first carpometacarpal and first metacarpophalangeal joints. No fracture or dislocation, periosteal reaction or bone destruction is detected. IMPRESSION: Osteoarthritis at first carpometacarpal and first metacarpophalangeal joints Reviewed, dictated and finalized at location A. SHOVELER IMPRESSION: Osteoarthritis at first carpometacarpal and first metacarpophalange al joints
== END ==
PROVIDERS: PCP Nurse Practitioner; Visit Provider Nurse Practitioner
DX: M19.032 Primary osteoarthritis, left wrist (principal); M19.042 Primary osteoarthritis, left hand
CPT/HCPCS: 73110; 73130

== ENCOUNTER → 2021-06-22 08:49 | Outpatient (CLI) | payer MEDICARE, SELFPAY ==
--- NOTE | ~2021-06-22 | XR_ITS ---
EXAMINATION: XR pelvis 1-2V INDICATION: Pelvic pain after fall TECHNIQUE: AP view of the pelvis is obtained. COMPARISON: None available FINDINGS: Bone alignment is normal. There is no fracture. The soft tissues are unremarkable. There is severe lower lumbar spondylosis. IMPRESSION: 1. No acute osseous abnormality. Reviewed, dictated and finalized at location A. ALS OFFICER
--- NOTE | ~2021-06-22 | XR_ITS ---
EXAMINATION: XR sacrum coccyx min 2V INDICATION: Sacrococcygeal disorders not elsewhere classified TECHNIQUE: Three views of the sacrum and coccyx are obtained. COMPARISON: None available FINDINGS: Bone alignment is normal. There is no fracture. There is severe spondylosis of the lower viola mbar spine. Calcified atherosclerosis is noted. IMPRESSION: 1. No acute osseous abnormality. Reviewed, dictated and finalized at location A. CCO SWEEPER
== END ==
PROVIDERS: PCP Family Medicine; Visit Provider Nurse Practitioner
DX: R10.2 Pelvic and perineal pain (principal); M53.3 Sacrococcygeal disorders, not elsewhere classified
CPT/HCPCS: 72170; 72220

== ENCOUNTER → 2021-08-21 08:23 | Outpatient (CLI) | payer MEDICARE, SELFPAY ==
--- NOTE | ~2021-08-21 | XR_ITS ---
EXAMINATION: XR abdomen/kub 1V DATE: 08/21/2021 08:43 INDICATION: Kidney stone. TECHNIQUE: A supine view of the abdomen on 2 radiographs was obtained. COMPARISON: CT abdomen and pelvis 08/21/2021. FINDINGS: There are no dilated loops of bowel. There is no visible kidney stone. IMPRESSION: 1. No visible kidney stone. Reviewed, dictated and finalized at location B. IMPRESSION: 1. No visible kidney stone.
--- NOTE | ~2021-08-21 | CT_ITS ---
EXAMINATION: CT abdomen pelvis wo con DATE: 08/21/2021 08:43 INDICATION: Left flank and groin pain. Kidney stones. TECHNIQUE: Computed tomography (CT) of the abdomen and pelvis was performed without intravenous contr ast. Automated exposure control and iterative reconstruction technique were employed. The dose-length product was 1150.58 mGy-cm. COMPARISON: CT abdomen and pelvis 07/25/2020 FINDINGS: The visualized portions of the lung bases demonstrate chronic interstitial lung disease anne racterized by septal thickening and mild bronchiectasis. No pleural effusion. The heart size is emerson l. There are coronary artery calcifications. No pericardial effusion. There is diffuse hepatic steato sis. The gallbladder, spleen, pancreas, adrenal glands, and right kidney are normal. There is a 1 mm stone in left kidney. The prostate is moderately enlarged. There is diverticulosis of the colon witho ut evidence of diverticulitis. The appendix is normal. There are no pathologically enlarged lymph nod es. There is no free intraperitoneal fluid. There is severe lower lumbar spondylosis. IMPRESSION: 1. 1 mm nonobstructing left kidney stone. 2. Diffuse hepatic steatosis. 3. Chronic interstitial lung disease. Reviewed, dictated and finalized at location B.
== END ==
PROVIDERS: PCP Family Medicine; Visit Provider Urology
DX: K76.0 Fatty (change of) liver, not elsewhere classified (principal); N20.0 Calculus of kidney; J84.9 Interstitial pulmonary disease, unspecified
CPT/HCPCS: 74018; 74176

== ENCOUNTER 2021-10-03 00:40 | Day surgery (SDC) | payer MEDICARE, SELFPAY ==
[2021-09-18 11:45] VITALS: BMI 38.9
[2021-10-03 06:26] VITALS: BP 134/82; PULSE 65; RESP 18; TEMP 36.7; O2SAT 97; BMI 38.7
[2021-10-03] MEDS: LACTATED RINGERS 1,000 ML 150 ML IV CONT (06:42)
[2021-10-03 06:44] LABS: Glucose Point of Care 101 mg/dl (65-105)
--- NOTE | 2021-10-03 07:24 | WPDANESEPPF ---
Anes - Initial Pre Proc Eval Procedure: Operation Date: 10/03/21 07:30 Proposed Procedures p Screening Colonoscopy - Russ Ocampo MD Date/Time: 10/03/21 07:24 Surgeon: Russ Ocampo MD Pre Op Diagnosis: family hx colon ca, hx of colon polyps Patient Data Age: 65 Gender: M Height: 1.78 m Weight: 122.6 kg Last Vital Signs Temp 98.0 F 10/03/21 06:26 Pulse 65 10/03/21 06:26 Resp 18 10/03/21 06:26 BP 134/82 10/03/21 06:26 Pulse Ox 97 10/03/21 06:26 O2 Del Method Room Air 10/03/21 06:26 Allergies Allergy/AdvReac Type Severity Reaction Status Date / Time Tetanus Vaccines and Toxoid Allergy Unknown Nausea Verified 10/03/21 06:25 Home Medications Medication Instructions Recorded Confirmed Type aspirin 81 mg tablet,delayed 81 mg PO DAILY 03/15/19 10/03/21 History release (Adult Low Dose Aspirin) atorvastatin 40 mg tablet 40 mg PO HS 03/15/19 10/03/21 History chlorthalidone 25 mg tablet 25 mg PO DAILY 03/15/19 10/03/21 History irbesartan 150 mg tablet 150 mg PO HS 03/15/19 10/03/21 History modafinil 100 mg tablet 50 mg PO BID 03/15/19 10/03/21 History nitroglycerin 0.4 mg sublingual 0.4 mg sublingual Q5M PRN chest 03/15/19 10/03/21 History tablet pain metoprolol succinate 50 mg 50 mg PO HS 11/29/19 10/03/21 History tablet,extended release 24 hr cholecalciferol (vitamin D3) 1,250 1,250 mcg PO WEEKLY #14 caps 01/01/21 10/03/21 Rx mcg (50,000 unit) capsule blood sugar diagnostic (Accu-Chek See Rx Instructions .Route 01/18/21 10/03/21 Rx Cathryn Plus test strp) .COMPLEX #200 strips lancets (Accu-Chek Softclix See Rx Instructions .Route 01/18/21 10/03/21 Rx Lancets) .COMPLEX #200 ea gabapentin 100 mg capsule 600 mg PO HS 06/22/21 10/03/21 History tamsulosin 0.4 mg capsule 0.4 mg PO DAILY 09/07/21 10/03/21 History azelastine 137 mcg (0.1 %) nasal 1 - 2 spray intranasal Q12H #30 mL 09/13/21 10/03/21 Rx spray aerosol fluticasone propionate 50 1 - 2 spray intranasal BID #16 mL 09/13/21 10/03/21 Rx mcg/actuation nasal spray,suspension (Flonase Allergy Relief) metformin 1,000 mg tablet 1,000 mg PO DAILY #90 tabs 09/17/21 10/03/21 Rx acetaminophen 650 mg 650 mg PO Q8H PRN Pain 09/18/21 10/03/21 History tablet,extended release Laboratory Tests 10/03/21 06:31 POC Capillary Glucose 101 mg/dl mg/dl (65-105) Patient hx anesthesia problems: none Family hx anesthesia problems: none Results Review: All pre-operative results and documents have been reviewed as part of the pre-operative evaluation. [facility] Past Medical History Medical History Absence epileptic syndrome, intractable, without status epilepticus Acute pain of both shoulders Angina pectoris, unspecified Basal cell carcinoma of skin of unspecified eyelid, including canthus Chronic obstructive pulmonary disease, unspecified Chronic pelvic pain in male Concussion with loss of consciousness of 30 minutes or less, sequela Coronary artery disease involving enterprise heart without angina pectoris Family history of amyloidosis (~2009) group home current use of anticoagulants with INR goal of 2.5-3.5 (~2015) Lumbosacral radiculopathy due to degenerative joint disease of spine (~2015) MCI (mild cognitive impairment) with memory loss (~2018) Migraine with aura, not intractable, without status migrainosus (~2014) CALI (obstructive sleep apnea) (~2008) Other hyperlipidemia (~2008) Primary osteoarthritis involving multiple joints (~2008) Restless legs syndrome (~2014) Testosterone insufficiency (~2015) Type 2 diabetes mellitus without complications Surgical History Surgical History H/O cystoscopy 2016 - urethral dilatation History of angioplasty 04/2020 History of coronary artery stent placement 03/2016 History of removal of pigmented skin lesion 2017 - Mainly on the face Family
--- NOTE | 2021-10-03 07:27 | WPDHPUPDATE1 ---
History and Physical Update Update Date/Time: 10/03/21 07:27 History and Physical has been reviewed, including an updated exam of the patient. There are NO changes in the patient's condition. Risks, benefits, and alternatives have been discussed and questions answered. Patient agrees to proceed with procedure.
[2021-10-03 07:50] VITALS: BP 120/66; PULSE 69; RESP 22; O2SAT 96
--- NOTE | 2021-10-03 07:51 | SUR.OPER ---
ASCENDING COLON POLYP NOT RETRIEVED DOCTOR AWARE.
[2021-10-03 08:00] VITALS: BP 123/75; PULSE 64; RESP 22; O2SAT 96
[2021-10-03 08:10] VITALS: BP 122/71; PULSE 67; RESP 13; O2SAT 98
--- NOTE | 2021-10-03 08:21 | SUR.OPER ---
Dr. Ocampo notified that endopros report inaccurate because ascending colon polyp not retrieved.
== END 2021-10-03 08:20 | disposition home or self-care (01) ==
PROVIDERS: PCP Family Medicine; Visit Provider Internal Medicine Gastroenterology
PROC: 0DJD8ZZ Inspection of Lower Intestinal Tract, Via Natural or Artificial Opening Endoscopic (ICD-10-PCS; CPT 45378; principal; 2021-10-03 07:30)
DX: Z12.11 Encounter for screening for malignant neoplasm of colon (principal); D12.8 Benign neoplasm of rectum; K63.5 Polyp of colon; K64.8 Other hemorrhoids; K64.4 Residual hemorrhoidal skin tags; K57.30 Diverticulosis of large intestine without perforation or abscess without bleeding; K62.89 Other specified diseases of anus and rectum; Z80.0 Family history of malignant neoplasm of digestive organs; G40.909 Epilepsy, unspecified, not intractable, without status epilepticus; J44.9 Chronic obstructive pulmonary disease, unspecified; R10.2 Pelvic and perineal pain; I25.10 Atherosclerotic heart disease of native coronary artery without angina pectoris; G47.33 Obstructive sleep apnea (adult) (pediatric); E78.49 Other hyperlipidemia; M19.90 Unspecified osteoarthritis, unspecified site; E11.9 Type 2 diabetes mellitus without complications; G25.81 Restless legs syndrome; Z95.5 Presence of coronary angioplasty implant and graft; E66.9 Obesity, unspecified; Z68.38 Body mass index [BMI] 38.0-38.9, adult; Z79.82 Long term (current) use of aspirin; Z79.84 Long term (current) use of oral hypoglycemic drugs
CPT/HCPCS: 45385; 82948; 88305; J2001; J2704; J7120

== ENCOUNTER → 2021-11-09 08:55 | Outpatient (CLI) | payer MEDICARE, SELFPAY ==
--- NOTE | ~2021-11-09 | MR_ITS ---
EXAMINATION: MR lumbar spine wo con DATE: 11/09/2021 09:46 INDICATION: Chronic worsening low back pain and radiculopathy with bilateral leg pain TECHNIQUE: Magnetic resonance imaging (MRI) of the lumbar spine was performed without intravenous con trast. Sequences included sagittal T2-weighted FSE, sagittal T2-weighted FS FSE, sagittal T1-weighted FSE, and axial T2-weighted FSE. COMPARISON: Lumbar spine MR dated 03/22/[address] dated 04/19/2017 FINDINGS: 1-2 mm retrolisthesis L1 on L2 and L2 on L3, 2 mm retrolisthesis L4 on L5 and 4 mm anterolisthesis L5 on S1. Severe disc height loss with mild fibrovascular degenerative endplate changes at L5-S1. Verte bral body heights are normal. Marrow signal is otherwise normal. Mild disc desiccation without signif icant disc height loss at T11-T12 and L1-L2 through L3-L4 and with mild disc height loss at L4-L5. An nular fissures at L4-L5 and L5-S1. The conus medullaris terminates at L1-L2. There is normal signal i n the caudal spinal cord. Paravertebral soft tissues are unremarkable. The following disc levels are specifically discussed: T12-L1: The disc does not extend beyond the endplate margin. There is mild bilateral facet joint oste oarthritis. There is no neural foraminal stenosis. There is no central canal stenosis. L1-L2: Disc is mildly bulging with small central disc extrusion with disc protrusion extending 4 mm c audal to the level of the superior endplate of L2. There is mild bilateral facet joint osteoarthritis . There is mild bilateral neural foraminal stenosis. There is mild central canal stenosis. L2-L3: Small left foraminal zone disc protrusion. There is mild bilateral facet joint osteoarthritis. There is mild to moderate bilateral neural foraminal stenosis. There is no central canal stenosis. L3-L4: Disc is bulging. There is mild to moderate right and moderate left facet joint osteoarthritis. There is moderate bilateral neural foraminal stenosis. There is mild central canal stenosis. L4-L5: Disc is bulging with superimposed annular fissure and small central disc extrusion with disc e xtending 2-3 mm caudal to the level of the superior endplate of L5. There is mild to moderate right a nd moderate left facet joint osteoarthritis. There is moderate bilateral neural foraminal stenosis. T here is mild central canal stenosis. L5-S1: Annular fissure and disc extrusion extending from foraminal zone to foraminal zone with disc m aterial extending up to 5 mm cephalad to the level of the inferior endplate of L5. There is severe bi lateral facet joint osteoarthritis. There is moderate left and moderate to severe right neural forami nal stenosis. There is mild central canal stenosis. IMPRESSION: 1. Interval progression of severe lumbosacral and mild to moderate lumbar spondylosis. Reviewed, dictated and finalized at location A. IMPRESSION: 1. Interval progression of severe lumbosacral and mild to moderate lumbar spond ylosis.
== END ==
PROVIDERS: PCP Family Medicine; Visit Provider Nurse Practitioner Family
DX: M54.50 Low back pain, unspecified (principal); M47.816 Spondylosis without myelopathy or radiculopathy, lumbar region
CPT/HCPCS: 72148

== ENCOUNTER 2021-11-21 08:08 | Outpatient (CLI) | payer MEDICARE, SELFPAY ==
--- NOTE | ~2021-11-21 | CT_ITS ---
EXAMINATION: CT sinus wo con DATE: 11/21/2021 08:29 INDICATION: Rhinorrhea. Congestion, sinus pressure, left greater than right. TECHNIQUE: Computed tomography (CT) of the paranasal sinuses was performed without contrast. Iterativ e reconstruction technique was employed. Exam dose: 320.10 mGy-cm total exam DLP. COMPARISON: None FINDINGS: There is rightward bowing of the anterior portion of the nasal septum. There is prominent soft tissue swelling of the nasal turbinates bilaterally, with partial opacificati on of the middle mediated is on the right. There is partial opacification of the right maxillary ostium and infundibulum. The left ostiomeatal u nit is patent. A lengthy to 7 mm wide polypoid opacity is noted along the anteromedial wall of the right maxillary s inus. Small mucous retention cyst in the floor of the left maxillary sinus.. Minimal focal soft tissue thickening of the right ethmoid air cells. The frontal and sphenoid sinuses are clear. The mastoid air cells are normally developed and aerated bilaterally. Middle and inner ear apparatus appear normal bilaterally. IMPRESSION: Rightward bowing of nasal septum. Partial opacification of right maxillary ostium and infundibulum Polypoid opacity along the anteromedial wall of the maxillary sinus Small mucous retention cyst floor left maxillary sinus Minimal mucosal periosteal thickening of the right ethmoid air cells Reviewed, dictated and finalized At Location A. Reviewed, dictated and finalized at location B.
== END 2021-11-21 08:09 | disposition home or self-care (01) ==
PROVIDERS: PCP Family Medicine; Visit Provider Otolaryngology
DX: J32.9 Chronic sinusitis, unspecified (principal); J34.89 Other specified disorders of nose and nasal sinuses; R09.81 Nasal congestion; J30.9 Allergic rhinitis, unspecified; J34.3 Hypertrophy of nasal turbinates; J34.2 Deviated nasal septum
CPT/HCPCS: 70486

== ENCOUNTER 2022-06-07 17:08 | Emergency (ER) | payer MEDICARE, SELFPAY ==
[2022-06-07 17:17] VITALS: BP 167/92; PULSE 90; RESP 16; TEMP 36.3; O2SAT 98
[2022-06-07 17:18] VITALS: BP 167/92; PULSE 90; RESP 16; TEMP 36.3; O2SAT 98
--- NOTE | 2022-06-07 17:44 | ED.EAR ---
HPI - Ear Problem General Chief complaint: Upper Respiratory Infection Stated complaint: HEADACHE/SORE THROAT/RUNNY NOSE/EAR DRAINAGE/DIZZY Time Seen by Provider: 06/07/22 17:27 Source: patient and family () Mode of arrival: ambulatory Limitations: no limitations History of Present Illness HPI Narrative: Patient present today complaining of left-sided temporal headache, rhinorrhea, left-sided ear pain, dizziness. Left ear started to drain clear fluid that has now turned bloody. States he did have a sore throat earlier this morning but this has improved throughout the day. Other symptoms began this morning and have worsened throughout the day. He currently rates his headache 12/12. He took a leftover [place] from his back surgery at 3:00 p.m. without relief of symptoms. Denies cough, fever, numbness or tingling in the extremities that is worse than his normal, weakness. Related Data Home Medications Medication Instructions Recorded Confirmed aspirin 81 mg tablet,delayed 81 mg PO DAILY 03/15/19 06/07/22 release (Adult Low Dose Aspirin) atorvastatin 40 mg tablet 40 mg PO HS 03/15/19 06/07/22 chlorthalidone 25 mg tablet 25 mg PO DAILY 03/15/19 06/07/22 irbesartan 150 mg tablet 150 mg PO HS 03/15/19 06/07/22 nitroglycerin 0.4 mg sublingual 0.4 mg sublingual Q5M PRN chest 03/15/19 06/07/22 tablet pain metoprolol succinate 50 mg 50 mg PO HS 11/29/19 06/07/22 tablet,extended release 24 hr gabapentin 100 mg capsule 600 mg PO HS 06/22/21 06/07/22 tamsulosin 0.4 mg capsule 0.4 mg PO DAILY 09/07/21 06/07/22 acetaminophen 650 mg 650 mg PO Q8H PRN Pain 09/18/21 06/07/22 tablet,extended release modafinil 100 mg tablet 100 mg PO DAILY 03/11/22 06/07/22 Allergies Allergy/AdvReac Type Severity Reaction Status Date / Time Tetanus Vaccines and Toxoid Allergy Unknown Nausea Verified 06/07/22 17:17 Review of Systems Review of Systems: CONSTITUTIONAL: Denies body aches, fever, chills, or sweats. EYES: Denies visual changes, redness, or discharge. ENT: Denies congestion. + rhinorrhea, sore throat, left ear pain CARDIOVASCULAR: Denies chest pain, palpitations, or edema. RESPIRATORY: Denies cough or dyspnea. GASTROINTESTINAL: Denies abdominal pain, nausea, vomiting, or diarrhea. GENITOURINARY: Denies dysuria or hematuria. SKIN: Denies rash, itching, or wounds. MUSCULOSKELETAL: Denies back pain, joint pain, or myalgia. NEUROLOGIC: Denies numbness, tingling, or weakness.+ headache, dizziness PSYCH: Denies depression or anxiety. [facility] Past Medical History Medical History Absence epileptic syndrome, intractable, without status epilepticus Acute pain of both shoulders Angina pectoris, unspecified Basal cell carcinoma of skin of unspecified eyelid, including canthus Chronic obstructive pulmonary disease, unspecified Chronic pelvic pain in male Concussion with loss of consciousness of 30 minutes or less, sequela Coronary artery disease involving [place] heart without angina pectoris Family history of amyloidosis (~2009) History of basal cell carcinoma (BCC) History of colon polyps custodial current use of anticoagulants with INR goal of 2.5-3.5 (~2015) Lumbosacral radiculopathy due to degenerative joint disease of spine (~2015) MCI (mild cognitive impairment) with memory loss (~2018) Migraine with aura, not intractable, without status migrainosus (~2014) CALI (obstructive sleep apnea) (~2008) Other hyperlipidemia (~2008) Primary osteoarthritis involving multiple joints (~2008) Restless legs syndrome (~2014) Testosterone insufficiency (~2015) Type 2 diabetes mellitus without complications Surgical History Surgical History H/O cystoscopy 2017 - urethral dilatation History of angioplasty 04/2020 History of coronary artery stent placement 03/2016 History of removal of pigmented skin lesion 2017 - Mainly on t
== END 2022-06-07 17:52 | disposition home or self-care (01) ==
PROVIDERS: Emergency Provider Nurse Practitioner; PCP Family Medicine
DX: H66.012 Acute suppurative otitis media with spontaneous rupture of ear drum, left ear (principal); J44.9 Chronic obstructive pulmonary disease, unspecified; I25.10 Atherosclerotic heart disease of native coronary artery without angina pectoris; G25.81 Restless legs syndrome; E11.9 Type 2 diabetes mellitus without complications; E78.49 Other hyperlipidemia; M15.9 Polyosteoarthritis, unspecified; M47.816 Spondylosis without myelopathy or radiculopathy, lumbar region; Z85.828 Personal history of other malignant neoplasm of skin; Z79.82 Long term (current) use of aspirin
CPT/HCPCS: 99213; G0463

== ENCOUNTER 2022-06-14 08:45 | Observation (INO) | payer MEDICARE, SELFPAY ==
[2022-06-14] VITALS (15 sets, daily range): BP systolic 131–155; BP diastolic 68–95; PULSE 49–63; RESP 11–19; TEMP 36.4–36.6; O2SAT 93–97; BMI 41.1
--- NOTE | ~2022-06-14 | CT_ITS ---
EXAMINATION: CT brain wo con DATE: 06/14/2022 11:13 INDICATION: Left-sided head pressure and ear infection. TECHNIQUE: Computed tomography (CT) of the head was performed without intravenous contrast. The mA wa s adjusted according to patient size. Iterative reconstruction technique was employed. The dose-lengt h product was 681.00 mGy-cm. COMPARISON: Head CT 04/19/2017, sinuses CT 11/21/21 FINDINGS: There is no intracranial hemorrhage, acute infarction, or abnormal intracranial mass lesion . The ventricles are normal in size. The orbits are normal. There is mild mucosal thickening in the p aranasal sinuses. There is a left otomastoid effusion. IMPRESSION: 1. Normal brain. 2. Left otomastoid effusion, new from 11/21/2021. Reviewed, dictated and finalized at location A. F ULTRASOUND TECHNOLOGIST
--- NOTE | ~2022-06-14 | CT_ITS ---
EXAMINATION: CT facial bones w con DATE: 06/14/2022 11:20 INDICATION: Left ear infection. Head pressure. Vision change. TECHNIQUE: Computed tomography (CT) of the facial bones and maxillofacial region was performed with 7 5 mL Omnipaque 350 intravenous contrast. Automated exposure control and iterative reconstruction tech AppFogque were employed. The dose-length product was 619.60 mGy-cm. COMPARISON: Sinuses CT 11/21/2021 FINDINGS: The orbits are normal. There is mild mucosal thickening in the paranasal sinuses. There is mild rightward deviation of the nasal septum. There is a left otomastoid effusion. No erosions of bon e. IMPRESSION: 1. Left otomastoid effusion, new from 11/21/21. Reviewed, dictated and finalized at location A. METHOD LASTING MACHINE OPERATOR
--- NOTE | ~2022-06-14 | MR_ITS ---
EXAMINATION: MR brain/brain stem wo/w con DATE: 06/15/2022 13:28 INDICATION: Cerebrovascular accident. Headache. TECHNIQUE: Magnetic resonance imaging (MRI) of the brain and brainstem was performed without and with 20 mL MultiHance intravenous contrast. COMPARISON: Brain MRI dated 06/20/2020, head CT 06/14/2022 FINDINGS: There are scattered areas of nonspecific increased T2-weighted signal intensity in the cere bral white matter and rodrigo, which is within normal limits for the patient's age. There is a developme ntal venous anomaly in left frontoparietal region. There is no intracranial hemorrhage, acute infarct ion, or abnormal intracranial mass lesion. The ventricles are normal in size. The orbits are normal. There is mild mucosal thickening in the paranasal sinuses. There is a left otomastoid effusion with e nhancement. IMPRESSION: 1. Normal aging brain. 2. Left otomastoid effusion with enhancement suggesting infection/inflammation. Reviewed, dictated and finalized at location E. T SCIENCES PROFESSOR
--- NOTE | 2022-06-14 10:06 | ED.EAR ---
HPI - Ear Problem General Chief complaint: Ear Stated complaint: ear pain Time Seen by Provider: 06/14/22 09:00 Source: patient, family and old records reviewed Mode of arrival: ambulatory Limitations: no limitations History of Present Illness HPI Narrative: Patient is a 66-year-old male who presents to the ED with left ear pain, pressure, dizziness. at bedside assisted in providing patient information. Patient reports he was diagnosed with a left TM perforation last Friday. He was started on antibiotic eardrops as well as Augmentin orally. He saw Dr. Pelayo on Friday started on Medrol Dosepak. Saw Dr. Pelayo again on Friday at which point infection seemed worse. Myringotomy was performed in the office and infection cleared. Patient reports initial improvement of pain, pressure, dizziness after the procedure. He did report some vision changes at that time. He began having worsening ear pain, left-sided head and face pressure, dizziness again this morning, as well as nausea and vomiting which he attributed to the dizziness. Patient also reports feeling slightly weak in his left leg. Denies slurred speech, dysphagia, dysarthria, fevers, numbness, tingling, abdominal pain, CP, SOB. Related Data Home Medications Medication Instructions Recorded Confirmed atorvastatin 40 mg tablet 40 mg PO HS 03/15/19 06/14/22 chlorthalidone 25 mg tablet 25 mg PO DAILY 03/15/19 06/14/22 irbesartan 150 mg tablet 150 mg PO HS 03/15/19 06/14/22 nitroglycerin 0.4 mg sublingual 0.4 mg sublingual Q5M PRN chest 03/15/19 06/14/22 tablet pain metoprolol succinate 50 mg 50 mg PO HS 11/29/19 06/14/22 tablet,extended release 24 hr gabapentin 100 mg capsule 600 mg PO HS 06/22/21 06/14/22 modafinil 100 mg tablet 100 mg PO DAILY 03/11/22 06/14/22 Allergies Allergy/AdvReac Type Severity Reaction Status Date / Time Tetanus Vaccines and Toxoid Allergy Unknown Nausea Verified 06/12/22 11:13 Review of Systems Review of Systems: CONSTITUTIONAL: Denies fever, chills, or sweats. EYES: See HPI. ENT: See HPI. CARDIOVASCULAR: Denies chest pain. RESPIRATORY: Denies cough or dyspnea. GASTROINTESTINAL: See HPI. MUSCULOSKELETAL: Denies back pain, joint pain, or myalgia. NEUROLOGIC: See HPI. All systems reviewed & are unremarkable except as noted in HPI and below [facility] Past Medical History Medical History (Updated 06/14/22 @ 20:22 by Zuleima Rasmussen PA-C) Absence epileptic syndrome, intractable, without status epilepticus Acute pain of both shoulders Angina pectoris, unspecified Basal cell carcinoma of skin of unspecified eyelid, including canthus Chronic obstructive pulmonary disease, unspecified Chronic pelvic pain in male Concussion with loss of consciousness of 30 minutes or less, sequela Coronary artery disease involving [place] heart without angina pectoris Family history of amyloidosis (~2009) History of basal cell carcinoma (BCC) History 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 with INR goal of 2.5-3.5 (~2015) Lumbosacral radiculopathy due to degenerative joint disease of spine (~2015) MCI (mild cognitive impairment) with memory loss (~2018) Migraine with aura, not intractable, without status migrainosus (~2014) CALI (obstructive sleep apnea) (~2008) Other hyperlipidemia (~2008) Primary osteoarthritis involving multiple joints (~2008) Restless legs syndrome (~2014) Testosterone insufficiency (~2015) Type 2 diabetes mellitus without complications Surgical History Surgical History (Updated 06/14/22 @ 15:17 by Glenys David PA-C) H/O cystoscopy 2016 - urethral dilatation History of angioplasty 04/2020 History of coronary artery stent placement 03/2016 History of dilation of urethra History of removal of pigmented skin lesion 2017 - Mainly on the face Previous back surgery Family History Family History Mother Carcinoma of colon, Onset Age
[2022-06-14] MEDS: SODIUM CHLORIDE 0.9% IV 1,000 ML 999 ML IV CONT (10:34)
[2022-06-14] MEDS: ONDANSETRON INJ 4 MG/2 ML VIAL IV PUSH ×2 (10:34→22:20)
[2022-06-14] MEDS: MECLIZINE HCL 25 MG TABLET PO (10:34)
[2022-06-14 10:42] LABS: Basophils Absolute Auto 0.1 K/mm3 (0.0-0.1); Basophils Percent Auto 1.1 % (0.2-1.2); Eosinophils Absolute Auto 0.3 K/mm3 (0-0.3); Eosinophils Percent Auto 3.3 % (0-4.4); Hematocrit 37.6 % (42.0-52.0); Hemoglobin 12.4 g/dL (14.0-18.0); Immature Granulocyte Absolute 0.05 K/mm3 (0.00-0.031); Immature Granulocyte Percent A 0.6 % (0-0.5); Lymphocytes Absolute Auto 2.38 K/mm3 (0.9-3.2); Lymphocytes Percent Auto 27.1 % (18.3-44.2); Mean Corpuscular Hemoglobin 29.5 pg (26-34); Mean Corpuscular Volume 89.3 fl (80-100); Mean Platelet Volume 8.9 fl (7.4-10.4); Monocytes Absolute Auto 0.9 K/mm3 (0.1-0.6); Monocytes Percent Auto 10.7 % (2.6-8.5); Neutrophils Percent Auto 57.2 % (45.5-73.1); Platelet Count Result 325 k/mm3 (150-375); Red Blood Count 4.21 M/mm3 (4.6-6.20); Red Cell Distribution Width 13.5 % (11.5-14.5); White Blood Count 8.8 K/mm3 (4.5-10.0)
[2022-06-14 10:55] LABS: Alanine Aminotransferase 41 U/L (6-50); Albumin Level 4.6 g/dL (3.5-5.1); Alkaline Phosphatase 67 U/L (38-126); Anion Gap 7 mmol/L (8-16); Aspartate Amino Transferase 31 U/L (17-59); Bilirubin,Total 0.3 mg/dL (0.2-1.3); Blood Urea Nitrogen 23 mg/dL (9-20); Calcium 9.7 mg/dL (8.4-10.2); Carbon Dioxide 29 mmol/L (22-30); Chloride 98 mmol/L (98-107); Estimated CRCL calculation 94 ml/min; Estimated Glomerular Filt Rate > 60; Glucose 101 mg/dL (65-110); Potassium 4.1 mmol/L (3.4-5.0); Sodium 134 mmol/L (137-145)
--- NOTE | 2022-06-14 13:45 | PM.IMHP ---
H&P: HPI History of Present Illness Date/Time: 06/14/22 13:45 Chief Complaint: Ear pain, headache, dizziness. Narrative: This is a pleasant 66-year-old male with type 2 diabetes mellitus with peripheral neuropathy, hypertension, anemia, and dyslipidemia who presented to the emergency department from home for evaluation of ear pain, headache, and dizziness. Last Friday he developed aching pain in his upper teeth and was seen by his dentist at which time he had an unremarkable exam and imaging. Sometime on Friday he developed a left-sided headache and earache with dizziness and later that evening he was seen in the local urgent care after he heard a pop in his ear followed by drainage which was bloody and purulent. He was given prescriptions for oral antibiotics and ear drops and was referred to ENT for follow-up. He was started on a Medrol Dosepak on Friday by Dr. Pelayo and due to continued symptoms he was seen in the office on Friday and had a myringotomy with improvement in his symptoms. Unfortunately yesterday he once again started having a worsening headache with increasing ear pain, dizziness, and ringing in the left ear. The dizziness causes nausea and he reports a couple of episodes of emesis. His balance is not great at baseline although it has been worse over the past 24 hours and he reports that he is actually limping on the left leg as it seems weak along with mild weakness in the left arm. This morning he had some blurry vision with his symptoms and with everything going on he came in for evaluation. He denies fever, sore throat, facial droop, and difficulty speaking and swallowing. He has not had chest pain, palpitation, or shortness of breath. Vital signs were stable on arrival to the ED. Labs were stable and unchanged from previous lab draws; WBC was 8.8. Head CT shows normal brain with a left otomastoid effusion. The ED provider discussed the patient's case with Dr. Pelayo who preferred that the patient come to his office this afternoon for T-tube placement though because he had some focal weakness on exam he is being admitted to rule out possible CVA. Dr. Pelayo graciously agreed to do a bedside T-tube insertion following clinic today. Review of Systems Review of Systems: Twelve systems were reviewed and are negative except for as per HPI. [facility] Past Medical History Medical History (Updated 06/16/22 @ 13:49 by Glensy David PA-C) Basal cell carcinoma of skin of unspecified eyelid, including canthus Chronic obstructive pulmonary disease, unspecified Coronary artery disease involving [place] heart without angina pectoris History of basal cell carcinoma (BCC) History of colon polyps Hypertension Migraine with aura, not intractable, without status migrainosus (~2014) CALI (obstructive sleep apnea) (~2008) Other hyperlipidemia (~2008) Primary osteoarthritis involving multiple joints (~2008) Restless legs syndrome (~2014) Testosterone insufficiency (~2015) Type 2 diabetes mellitus without complications Surgical History Surgical History (Updated 06/14/22 @ 15:17 by Glenys David PA-C) H/O cystoscopy 2016 - urethral dilatation History of angioplasty 04/2020 History of coronary artery stent placement 03/2016 History of dilation of urethra History of removal of pigmented skin lesion 2017 - Mainly on the face Previous back surgery Family History Family History Mother Carcinoma of colon, Onset Age: 68 Father Family history of coronary artery disease Acute myocardial infarction, Onset Age: 56 Daughter Rheumatoid arthritis Social History Social History (Updated 06/16/22 @ 13:50 by Glenys David PA-C) Social History: Code status: Full code. Smoking status: Never smoker Second hand tobacco smoke exposure: No Alcohol intake: never Substance use: never Substance use type: does not use Lack of Transportation:
[2022-06-14 14:28] LABS: Influenza A QL RT-PCR Negative (Negative); Influenza B QL RT-PCR Negative (Negative); SARS-CoV-2 RNA PCR Negative
--- NOTE | 2022-06-14 14:37 | ADMGEN ---
This patient, Blair Lauren, was admitted to [facility] Surg Room 320-01 at 1435. Patient/family oriented to hospital policies and general routines including ID bracelet, bed and alarms, visiting hours, pain management, procedures, bathroom and other care routines, personal items, smoking policy, room service/diet, and visiting hours. Information on how to activate the Rapid Response Team has been discussed. Patient/Family are encouraged to report perceived risks to care and to ask questions if they do not understand what they are told or what they should do.
--- NOTE | 2022-06-14 17:49 | WPDPROCEDUR ---
Procedures Other Procedures Procedure 1: Other Procedure: left myringotomy
--- NOTE | 2022-06-14 17:51 | WPDCN ---
Assessment and Plan Assessment and plan (1) Otitis media, left: Code(s): H66.92 - Otitis media, unspecified, left ear Status: Acute Assessment and Plan: T tubed placed left side, ciprodex qid, 5 drops, perform tragal pump, patient aware. IV abx while inpatient. Follow up with me next week as outpatient HPI Data of Consult Date/Time: 06/14/22 17:51 Requesting Physician: Nathan Jean MD Primary Care Provider: Aneta Canseco MD Consult Narrative Narrative: Blair Lauren is a 66 year old male, left otitis, ct reviewed. Review of Systems Review of Systems: All systems reviewed & are unremarkable except as noted in HPI and below PMFSH Past Medical History Medical History Absence epileptic syndrome, intractable, without status epilepticus Acute pain of both shoulders Angina pectoris, unspecified Basal cell carcinoma of skin of unspecified eyelid, including canthus Chronic obstructive pulmonary disease, unspecified Chronic pelvic pain in male Concussion with loss of consciousness of 30 minutes or less, sequela Coronary artery disease involving [place] heart without angina pectoris Family history of amyloidosis (~2009) History of basal cell carcinoma (BCC) 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 with INR goal of 2.5-3.5 (~2015) Lumbosacral radiculopathy due to degenerative joint disease of spine (~2015) MCI (mild cognitive impairment) with memory loss (~2018) Migraine with aura, not intractable, without status migrainosus (~2014) CALI (obstructive sleep apnea) (~2008) Other hyperlipidemia (~2008) Primary osteoarthritis involving multiple joints (~2008) Restless legs syndrome (~2014) Testosterone insufficiency (~2015) Type 2 diabetes mellitus without complications Surgical History Surgical History (Updated 06/14/22 @ 15:17 by Glenys David PA-C) H/O cystoscopy 2016 - urethral dilatation History of angioplasty 04/2020 History of coronary artery stent placement 03/2016 History of dilation of urethra History of removal of pigmented skin lesion 2017 - Mainly on the face Previous back surgery Family History Family History Mother Carcinoma of colon, Onset Age: 68 Father Family history of coronary artery disease Acute myocardial infarction, Onset Age: 56 Daughter Rheumatoid arthritis Social History Social History Social History: 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 He said that he retired about 2 years ago due to his health. His is his durable power trial attorney for healthcare. He lives with his . He has 2 daughters. One daughter is a physician in the other 1 is a nurse practitioner. The patient desires to be a full code. Patient used to socially drink when he was younger but no longer drinks due to his medication. Lifelong nonsmoker. Does not use any illicit drugs or marijuana. Smoking status: Never smoker Second hand tobacco smoke exposure: No Alcohol intake: never Substance use: never Substance use type: does not use Lack of Transportation: No Lack of Food: Never True Current Housing: I Have Housing Concerned About Future Housing: No Difficulty Paying Gas/Electric Bills: No Difficulty Paying for Meds: No Currently Unemployed: No Education: Associate Degree Difficulty w/ Childcare or Family Care: No Living arrangements: with family Occupation/Education: retired Gender identity (if verbalized by the patient): Male Sexual Orientation (if Verbalized by the Patient): Straight or Heterosexual Spiritual care concerns: No Meds Home Medications and Allergies Home Medications Medication Instructions Recorded Confirmed Type atorvastatin 40 mg tablet 40 mg PO HS
[2022-06-14 22:11] LABS: Glucose Point of Care 131 mg/dl (65-105)
[2022-06-14] MEDS: MORPHINE SULFATE (*CRX) 2 MG/ML INJ IV PUSH (22:19)
[2022-06-14] MEDS: METOPROLOL SUCCINATE EXT REL 50 MG TABCR PO (22:34)
[2022-06-14] MEDS: IRBESARTAN 150 MG TABLET PO (22:35)
[2022-06-14] MEDS: ATORVASTATIN 40 MG TABLET PO (22:35)
[2022-06-14] MEDS: metFORMIN HCL 500 MG TABLET 1000 MG PO (22:35)
[2022-06-14] MEDS: methylPREDNISolone (MEDROL) DOSEPACK 4 MG TABLETS PO (22:37)
[2022-06-14] MEDS: CIPROFLOXACIN HC OTIC 10 ML 5 DROP LEFT EAR (22:40)
[2022-06-15] VITALS (10 sets, daily range): BP systolic 119–136; BP diastolic 78–89; PULSE 48–75; RESP 14–20; TEMP 36.1–36.6; O2SAT 95–97
--- NOTE | 2022-06-15 | ECHO_ITS ---
Patient Info Name: Blair Lauren Age: 66 years : 1955 Gender: Male Ht: 70 in Wt: 283 lbs BSA: 2.57 m2 HR: 43 bpm BP: 136 / 89 mmHg Heart Rhythm: Sinus Rhythm, Bradycardia Technical Quality: Fair Exam Date: 06/15/2022 11:54 AM Exam Location: [facility] Pulmonary Exam Room: 320 Patient Status: Inpatient Admit Date: 06/14/2022 Staff Ordering Physician: Doni Gan Relations Manager: Nellie Blackwell RDCS Attending Provider: Nathan Jean MD Referring Physician: Teddy Pelayo MD; Exam Type: CA echo dop bubble study w con Study Info Indications - CVA Complete two-dimentional, color flow and Doppler transthoracic echocardiogram is performed with agitated saline and with contrast to opacify the left ventricle and to improve the delineation of the left ventricle endocardial borders. Contrast/Agitated Saline Contrast/Ag. Saline: Definity Amount: 2.00 ml Administered By: Nellie Blackwell [facility] Existing IV Access: Yes IV Access Condition: patent with no signs of infiltration History/Risk Factors Coronary Artery Disease (CAD) Yes Prior Interventions PCI: Yes Summary 1. Normal left ventricular size and thickness with normal left ventricular systolic function of all segments. Ejection fraction 55-60%. Grade 2 diastolic dysfunction is present. 2. Left atrial chamber dimension is mildly enlarged. 3. Mild pulmonary hypertension, estimated pulmonary arterial systolic pressure is 37 mmHg. 4. No significant valve disease. 5. No evidence of intracardiac shunting during rest and with Valsalva by bubble study. 6. Normal sinus rhythm. 7. Somewhat technically difficult study. IV definity echo contrast used. Left Ventricle Left ventricular chamber dimension is normal. Left ventricular systolic function is normal, estimated at 55-60%. There is no increased left ventricular wall thickness. Left ventricular septal wall motion is normal. The left ventricular diastolic function is grade II diastolic dysfunction. Right Ventricle Right ventricular chamber dimension is normal. Right ventricular systolic function is normal. Left Atria Left atrial chamber dimension is mildly enlarged. Right Atria Right atrial chamber dimension is normal. Atrial Septum Intact interatrial septum visualized by agitated saline imaging. Aortic Valve The aortic valve is trileaflet. There is no aortic valve sclerosis. There is no aortic valve stenosis. There is no aortic valve regurgitation. Pulmonic Valve The pulmonic valve is normal. There is no pulmonic valve stenosis. There is no pulmonic regurgitation. Mitral Valve The mitral valve has normal leaflets. There is no mitral valve stenosis. There is trace mitral valve regurgitation. Tricuspid Valve The tricuspid valve leaflets are normal. There is no significant tricuspid valve stenosis. There is trace tricuspid valve regurgitation. Mild pulmonary hypertension, estimated pulmonary arterial systolic pressure is 37 mmHg. Pericardium/Pleural The pericardium appears normal. There is no pericardial effusion. Inferior Vena Cava Normal inferior vena cava with >50% collapse upon inspiration consistent with Empty right atrial pressure, 10 mmHg. Aorta The aortic root size at the sinus of Valsalva is normal. The prox ascending aorta size is normal. Left Ventricular Outflow Tract
[2022-06-15] MEDS: CIPROFLOXACIN HC OTIC 10 ML 5 DROP LEFT EAR ×4 (01:45→18:02)
[2022-06-15] MEDS: GABAPENTIN 300 MG CAPSULE 600 MG PO ×2 (01:45→20:04)
[2022-06-15] MEDS: MORPHINE SULFATE (*CRX) 2 MG/ML INJ IV PUSH ×4 (02:40→20:45)
[2022-06-15 06:49] LABS: Hematocrit 39.7 % (42.0-52.0); Hemoglobin 12.7 g/dL (14.0-18.0); Mean Corpuscular Hemoglobin 29.1 pg (26-34); Mean Corpuscular Volume 91.1 fl (80-100); Mean Platelet Volume 8.9 fl (7.4-10.4); Platelet Count Result 317 k/mm3 (150-375); Red Blood Count 4.36 M/mm3 (4.6-6.20); Red Cell Distribution Width 13.5 % (11.5-14.5); White Blood Count 8.4 K/mm3 (4.5-10.0)
[2022-06-15 07:07] LABS: Anion Gap 7 mmol/L (8-16); Blood Urea Nitrogen 18 mg/dL (9-20); Calcium 9.3 mg/dL (8.4-10.2); Carbon Dioxide 30 mmol/L (22-30); Chloride 99 mmol/L (98-107); Estimated CRCL calculation 93 ml/min; Estimated Glomerular Filt Rate > 60; Glucose 104 mg/dL (65-110); Magnesium 1.6 mg/dL (1.6-2.3); Potassium 4.2 mmol/L (3.4-5.0); Sodium 136 mmol/L (137-145)
[2022-06-15 07:36] LABS: Glucose Point of Care 98 mg/dl (65-105)
[2022-06-15] MEDS: CHLORTHALIDONE 25 MG TABLET PO (08:22)
[2022-06-15] MEDS: modafiniL (*CRX) 100 MG TABLET PO (08:22)
--- NOTE | 2022-06-15 09:28 | P.PNIM_ITS ---
Progress Note: A&P Assessment and Plan (1) Left acute otitis media: Code(s): H66.92 - Otitis media, unspecified, left ear Status: Acute Assessment and Plan: * CT of the head shows left sided otomastoid effusion * Zosyn for now * T tube inserted 06/14/22 * Could be causing the dizziness and balance complaints * WBC stable at 8.4 * ENT consulted (2) Vertigo: Code(s): R42 - Dizziness and giddiness Status: Acute Assessment and Plan: * most likely related to the left sided otomastoiditis * Meclizine ordered * PT/OT ordered (3) Left-sided weakness: Code(s): R53.1 - Weakness Status: Acute Assessment and Plan: * Complaints of weakness of the left arm and leg * Neuro consulted * No acute findings on the CT * MRI of the brain ordered * Echo ordered * Could be TIA, or could be CVA * Lipid panel cholesterol 128, triglycerides 95, LDL 53, HDL 45 (4) Type 2 diabetes mellitus: Code(s): E11.9 - Type 2 diabetes mellitus without complications Status: Acute Assessment and Plan: * Glucose 104 * a1c 5.8 * Continue metformin 1000mg PO daily * Continue to trend glucose * Adjust therapy as indicated (5) Hypertension: Code(s): I10 - Essential (primary) hypertension Status: Acute Assessment and Plan: * Current BP is 136/89 * Continue home medication * Trend BP * adjust medications as indicated (6) Headache: Code(s): R51.9 - Headache, unspecified Status: Acute Assessment and Plan: * Could be related to the infection * Morphine and norco on board * Await MRI results * CRP and ESR ordered Time Spent With Patient Time: 51 minutes Time with patient: Greater than 35 minutes Subjective Date/time seen: 06/15/22 1045 Interval history: 06/15/22 104 Patient's is very upset and frustrated today as the patient did have a hard time getting medications last night. However in talking with the patient the patient did have quite a long history of ear drum rupture that all started with a toothache and what felt to him like a head cold. However today patient stated that he is having some pretty significant headaches. Patient stated that his headaches are relieved with the morphine however they come back and are worse than he is experienced with his migraines. Patient did mention that he felt like this could be the worst headache he has ever had. Patient still having some left-sided weakness however his seems to think that it could be just chronic as he is going through physical therapy after his back surgery. Spoke with Dr. Jean about the case and recommending an MRI of the head with and without and obtaining CRP and ESR. Patient did state that his headache starts in back of his head and does rotate up and goes behind his eye. After further conversation it was noted that the patient with the ear drum ruptured did have some visual changes blurred vision on the left side along with this headache. Could all be related to the infection however walill await results from MRI. 06/14/22? 13:45 This is a very pleasant 66-year-old male with type 2 diabetes mellitus with peripheral neuropathy, hypertension, anemia, and dyslipidemia who presented to the emergency department from home for evaluation of ear pain, hea
--- NOTE | 2022-06-15 09:28 | PM.IMPN ---
Progress Note: A&P Assessment and Plan (1) Left acute otitis media: Code(s): H66.92 - Otitis media, unspecified, left ear Status: Acute Assessment and Plan: CT of the head shows left sided otomastoid effusion Zosyn for now T tube inserted 06/14/22 Could be causing the dizziness and balance complaints WBC stable at 8.4 ENT consulted (2) Vertigo: Code(s): R42 - Dizziness and giddiness Status: Acute Assessment and Plan: most likely related to the left sided otomastoiditis Meclizine ordered PT/OT ordered (3) Left-sided weakness: Code(s): R53.1 - Weakness Status: Acute Assessment and Plan: Complaints of weakness of the left arm and leg Neuro consulted No acute findings on the CT MRI of the brain ordered Echo ordered Could be TIA, or could be CVA Lipid panel cholesterol 128, triglycerides 95, LDL 53, HDL 45 (4) Type 2 diabetes mellitus: Code(s): E11.9 - Type 2 diabetes mellitus without complications Status: Acute Assessment and Plan: Glucose 104 a1c 5.8 Continue metformin 1000mg PO daily Continue to trend glucose Adjust therapy as indicated (5) Hypertension: Code(s): I10 - Essential (primary) hypertension Status: Acute Assessment and Plan: Current BP is 136/89 Continue home medication Trend BP adjust medications as indicated (6) Headache: Code(s): R51.9 - Headache, unspecified Status: Acute Assessment and Plan: Could be related to the infection Morphine and norco on board Await MRI results CRP and ESR ordered Time Spent With Patient Time: 51 minutes Time with patient: Greater than 35 minutes Subjective Date/time seen: 06/15/22 104 Interval history: 06/15/22 104 Patient's is very upset and frustrated today as the patient did have a hard time getting medications last night. However in talking with the patient the patient did have quite a long history of ear drum rupture that all started with a toothache and what felt to him like a head cold. However today patient stated that he is having some pretty significant headaches. Patient stated that his headaches are relieved with the morphine however they come back and are worse than he is experienced with his migraines. Patient did mention that he felt like this could be the worst headache he has ever had. Patient still having some left-sided weakness however his seems to think that it could be just chronic as he is going through physical therapy after his back surgery. Spoke with Dr. Jean about the case and recommending an MRI of the head with and without and obtaining CRP and ESR. Patient did state that his headache starts in back of his head and does rotate up and goes behind his eye. After further conversation it was noted that the patient with the ear drum ruptured did have some visual changes blurred vision on the left side along with this headache. Could all be related to the infection however walill await results from MRI. 06/14/22? 13:45 This is a very pleasant 66-year-old male with type 2 diabetes mellitus with peripheral neuropathy, hypertension, anemia, and dyslipidemia who presented to the emergency department from home for evaluation of ear pain, headache, and dizziness. Last Friday he developed aching pain in his upper teeth and was seen at his dentist at which time he had an unremarkable exam and imaging. Sometime on Friday he developed a left-sided headache and earache with dizziness and later that evening he was seen in the local urgent care after he heard a pop in his ear followed by drainage which was bloody and purulent. He was given prescriptions for oral antibiotics and ear drops and he was referred to ENT for follow-up. He was started on a Medrol Dosepak on Friday by Dr. Pelayo and due to continued
--- NOTE | 2022-06-15 09:45 | P.DS_ITS ---
DS: Admitting Diagnosis Discharge Date 06/16/22 0945 Admitting Diagnosis Ear infection/dizziness DS: Discharge Diagnosis Discharge Diagnosis (1) Left acute otitis media: Code(s): H66.92 - Otitis media, unspecified, left ear Status: Acute Assessment and Plan: * CT of the head shows left sided otomastoid effusion * Zosyn for now, switch to augmentin * T tube inserted 06/14/22 * Could be causing the dizziness and balance complaints * WBC stable at 8.4 * ENT consulted (2) Vertigo: Code(s): R42 - Dizziness and giddiness Status: Acute Assessment and Plan: * most likely related to the left sided otomastoiditis * Meclizine ordered * PT/OT ordered * MRI of the brain ordered (3) Left-sided weakness: Code(s): R53.1 - Weakness Status: Acute Assessment and Plan: * Complaints of weakness of the left arm and leg * Neuro consulted * No acute findings on the CT * MRI of the brain ordered * Echo ordered * Could be TIA, or could be CVA * Lipid panel cholesterol 128, triglycerides 95, LDL 53, HDL 45 (4) Type 2 diabetes mellitus: Code(s): E11.9 - Type 2 diabetes mellitus without complications Status: Acute Assessment and Plan: * Glucose 104 * a1c 5.8 * Continue metformin 1000mg PO daily * Continue to trend glucose * Adjust therapy as indicated (5) Hypertension: Code(s): I10 - Essential (primary) hypertension Status: Acute Assessment and Plan: * Current BP is 136/89 * Continue home medication * Trend BP * adjust medications as indicated (6) Headache: Code(s): R51.9 - Headache, unspecified Status: Acute Assessment and Plan: * Could be related to the infection * Morphine and norco on board * Await MRI results * CRP 0.6 and ESR 17 DS: Summary Hospital Course Hospital Course: Patient is 66-year-old male with a past medical history of type 2 diabetes, peripheral neuropathy, hypertension, anemia and dyslipidemia who presented the ED from home for evaluation of ear pain, headache and dizziness. The Friday prior to coming in patient developed an achy pain in his upper teeth and on Friday his ear drum bursted with bloody present drainage. Patient did follow-up with ENT who saw in the office in place patient on antibiotics and Prednisone. However patient worsened and was directed to come to the ED. Upon arrival to the ED ENT was consulted and a T-tube was placed. Patient has been getting ear drops and IV antibiotics. Patient also complained of a little bit dizziness and unilateral weakness MRI of the head with and without contrast has been done and showed normal aging brain. Patient was also complaining of headache which has gotten a lot better. Currently patient still does have pain which she rates a 6 without pain medicine at 3 with pain medicine. Headache is most likely related to the ear infection noted on the CT and MRI. Spoke with ENT who is recommending a Z-Miguel due to the size and condition of the infection. Patient has been instructed to place ear drops and below infection out of his ear. Patient does know this and has demonstrated and verbalized understanding. Currently patient is stable for discharge. Labs and vital signs remained stable. Patient denies any chest pain, shortness a breath, nausea, vomiting, diar
--- NOTE | 2022-06-15 09:45 | PM.DS ---
DS: Admitting Diagnosis Discharge Date 06/16/22 0945 Admitting Diagnosis Ear infection/dizziness DS: Discharge Diagnosis Discharge Diagnosis (1) Left acute otitis media: Code(s): H66.92 - Otitis media, unspecified, left ear Status: Acute Assessment and Plan: CT of the head shows left sided otomastoid effusion Zosyn for now, switch to augmentin T tube inserted 06/14/22 Could be causing the dizziness and balance complaints WBC stable at 8.4 ENT consulted (2) Vertigo: Code(s): R42 - Dizziness and giddiness Status: Acute Assessment and Plan: most likely related to the left sided otomastoiditis Meclizine ordered PT/OT ordered MRI of the brain ordered (3) Left-sided weakness: Code(s): R53.1 - Weakness Status: Acute Assessment and Plan: Complaints of weakness of the left arm and leg Neuro consulted No acute findings on the CT MRI of the brain ordered Echo ordered Could be TIA, or could be CVA Lipid panel cholesterol 128, triglycerides 95, LDL 53, HDL 45 (4) Type 2 diabetes mellitus: Code(s): E11.9 - Type 2 diabetes mellitus without complications Status: Acute Assessment and Plan: Glucose 104 a1c 5.8 Continue metformin 1000mg PO daily Continue to trend glucose Adjust therapy as indicated (5) Hypertension: Code(s): I10 - Essential (primary) hypertension Status: Acute Assessment and Plan: Current BP is 136/89 Continue home medication Trend BP adjust medications as indicated (6) Headache: Code(s): R51.9 - Headache, unspecified Status: Acute Assessment and Plan: Could be related to the infection Morphine and norco on board Await MRI results CRP 0.6 and ESR 17 DS: Summary Hospital Course Hospital Course: Patient is 66-year-old male with a past medical history of type 2 diabetes, peripheral neuropathy, hypertension, anemia and dyslipidemia who presented the ED from home for evaluation of ear pain, headache and dizziness. The Friday prior to coming in patient developed an achy pain in his upper teeth and on Friday his ear drum bursted with bloody present drainage. Patient did follow-up with ENT who saw in the office in place patient on antibiotics and Prednisone. However patient worsened and was directed to come to the ED. Upon arrival to the ED ENT was consulted and a T-tube was placed. Patient has been getting ear drops and IV antibiotics. Patient also complained of a little bit dizziness and unilateral weakness MRI of the head with and without contrast has been done and showed normal aging brain. Patient was also complaining of headache which has gotten a lot better. Currently patient still does have pain which she rates a 6 without pain medicine at 3 with pain medicine. Headache is most likely related to the ear infection noted on the CT and MRI. Spoke with ENT who is recommending a Z-Miguel due to the size and condition of the infection. Patient has been instructed to place ear drops and below infection out of his ear. Patient does know this and has demonstrated and verbalized understanding. Currently patient is stable for discharge. Labs and vital signs remained stable. Patient denies any chest pain, shortness a breath, nausea, vomiting, diarrhea or constipation. Patient is being discharged home with follow-up with ENT later on this week. Status at Discharge Functional status at discharge: independent ambulation Overall status at discharge: patient is progressing back to baseline Time Spent with Patient Time attestation: Total time spent providing and/or coordinating discharge services: 56 minutes Time spent: Greater than 30 minutes Specific discharge activities: Diagnostic testing, chart review, developing a treatment plan, education, care coordination documentation, physica
[2022-06-15 10:02] LABS: Cholesterol 128 mg/dL (0-200); HDL Direct 45 mg/dL; Triglycerides 95 mg/dL (<150)
[2022-06-15 10:13] LABS: LDL Cholesterol Direct 53 mg/dL
[2022-06-15 10:59] LABS: CRP 0.6 mg/dL (<1.0)
[2022-06-15 11:16] LABS: Erythrocyte Sedimentation Rate 17 mm/hr (0-20)
[2022-06-15 11:22] LABS: Glucose Point of Care 105 mg/dl (65-105)
[2022-06-15 11:40] LABS: Hemoglobin A1C 5.8 % (<5.7)
[2022-06-15] MEDS: PERFLUTREN LIPID MICROSPHERES 1.5 ML VIAL DILUTED TO 10 ML TOTAL VOLUME IV PUSH (11:50)
[2022-06-15] MEDS: MAGNESIUM SULF 4 GM/WATER100ML 4 GM/100 ML BAG IVPB (13:50)
--- NOTE | 2022-06-15 14:59 | PCRCNOTE ---
Pt screened for cpap/bipap use. Pt states that he normally wears a home unit, but his neurologist has told him to wait until the wound on his ear is healed before he begins use again. Pt states he will not be requiring one of our units or his own while here.
[2022-06-15 16:28] LABS: Glucose Point of Care 126 mg/dl (65-105)
[2022-06-15] MEDS: metFORMIN HCL 500 MG TABLET 1000 MG PO (18:02)
[2022-06-15 19:44] LABS: Glucose Point of Care 122 mg/dl (65-105)
[2022-06-15] MEDS: IRBESARTAN 150 MG TABLET PO (20:04)
[2022-06-15] MEDS: ATORVASTATIN 40 MG TABLET PO (20:04)
[2022-06-15] MEDS: METOPROLOL SUCCINATE EXT REL 50 MG TABCR PO (20:45)
[2022-06-16] VITALS: PULSE 70
[2022-06-16] MEDS: CIPROFLOXACIN HC OTIC 10 ML 5 DROP LEFT EAR ×3 (01:07→11:22)
[2022-06-16 04:00] VITALS: PULSE 53
[2022-06-16 05:47] VITALS: BP 127/72; PULSE 59; RESP 14; TEMP 36.3; O2SAT 92
[2022-06-16 06:37] LABS: Basophils Absolute Auto 0.1 K/mm3 (0.0-0.1); Eosinophils Absolute Auto 0.4 K/mm3 (0-0.3); Hemoglobin 13.6 g/dL (14.0-18.0); Immature Granulocyte Absolute 0.03 K/mm3 (0.00-0.031); Immature Granulocyte Percent A 0.3 % (0-0.5); Lymphocytes Absolute Auto 2.36 K/mm3 (0.9-3.2); Lymphocytes Percent Auto 27.3 % (18.3-44.2); Mean Corpuscular HGB Conc 32.4 g/dl (32-36); Mean Corpuscular Hemoglobin 29.6 pg (26-34); Mean Corpuscular Volume 91.5 fl (80-100); Mean Platelet Volume 8.7 fl (7.4-10.4); Monocytes Absolute Auto 0.8 K/mm3 (0.1-0.6); Monocytes Percent Auto 8.7 % (2.6-8.5); Neutrophils Percent Auto 57.7 % (45.5-73.1); Platelet Count Result 341 k/mm3 (150-375); Red Blood Count 4.59 M/mm3 (4.6-6.20); Red Cell Distribution Width 13.6 % (11.5-14.5); White Blood Count 8.7 K/mm3 (4.5-10.0)
[2022-06-16 07:03] LABS: Alanine Aminotransferase 39 U/L (6-50); Albumin Level 4.8 g/dL (3.5-5.1); Alkaline Phosphatase 83 U/L (38-126); Anion Gap 11 mmol/L (8-16); Aspartate Amino Transferase 25 U/L (17-59); Bilirubin,Total 0.4 mg/dL (0.2-1.3); Blood Urea Nitrogen 19 mg/dL (9-20); Calcium 9.5 mg/dL (8.4-10.2); Carbon Dioxide 27 mmol/L (22-30); Chloride 97 mmol/L (98-107); Estimated CRCL calculation 93 ml/min; Estimated Glomerular Filt Rate > 60; Glucose 106 mg/dL (65-110); Magnesium 1.9 mg/dL (1.6-2.3); Potassium 3.9 mmol/L (3.4-5.0); Sodium 135 mmol/L (137-145)
[2022-06-16 07:29] LABS: Glucose Point of Care 92 mg/dl (65-105)
[2022-06-16 08:00] VITALS: PULSE 59
[2022-06-16] MEDS: CHLORTHALIDONE 25 MG TABLET PO (08:40)
[2022-06-16] MEDS: MORPHINE SULFATE (*CRX) 2 MG/ML INJ IV PUSH (08:41)
[2022-06-16] MEDS: modafiniL (*CRX) 100 MG TABLET PO (08:41)
[2022-06-16] MEDS: ONDANSETRON INJ 4 MG/2 ML VIAL IV PUSH (08:41)
[2022-06-16] MEDS: SUMAtriptan SUCCINATE 25 MG TABLET 100 MG PO (10:52)
--- NOTE | 2022-06-16 11:00 | WPDNEURCNPN ---
Assessment and Plan Assessment and plan (1) Headache: Code(s): R51.9 - Headache, unspecified Status: Acute (2) Type 2 diabetes mellitus: Code(s): E11.9 - Type 2 diabetes mellitus without complications Status: Acute (3) Left-sided weakness: Code(s): R53.1 - Weakness Status: Acute (4) Left acute otitis media: Code(s): H66.92 - Otitis media, unspecified, left ear Status: Acute Plan One no focal neurological deficit with negative MRI of the brain findings were discussed with the family particular the and the daughter happened to be in the room 2. there was concern about the EEG which will be done next week an outpatient in addition they were advised to contact the physician as an outpatient Consult date: 06/16/22 HPI: Blair Lauren is a 66 year old male Admitted to the hospital through the emergency room where she presented with the complaints of ear pain in addition to dizziness pressure-like sensation in his ear he was diagnosed to have perforation of the left tympanic membrane Friday and was started on the local ear drops by the ENT physician along with the p.o. Augmentin he also received a Medrol Dosepak and was followed up by the same physician subsequently but the symptomatology got worsened at that particular time Venancio got me was performed in the office with the clearance of the infection but he reported some visual changes started having the worsening ear pain and facial pressure-like sensation with dizziness as well as nausea and vomiting and subsequently weaker in his left lower extremity. His medications included atorvastatin 40 mg at night, chlorthalidone 25 mg daily, irbesartan 150 mg at night, metoprolol 50 mg at night, modafinil 100 mg daily and gabapentin 100 mg each per 6 of them at nighttime he does have ongoing history of multiple medical problems particular to mention is the coronary artery disease long-term use of anticoagulants migraine with aura and diabetes mellitus there is no history of smoking or drinking. Initial evaluation in the emergency room neurologically is intact vital signs were normal he was admitted to the hospital for the neurology consultation because of the persistence of the dizziness his vital signs were normal CBC was BMP was normal with sodium 134 CT of the head documented only left auto mastoid effusion was new from the finding on November 21, [address] scan was compatible with the same findings his stroke scale was only [address] scan of the head was normal and so as the MRI of the brain without evidence of any stroke though still documenting left auto mastoid effusion with enhancement suggesting infection and inflammation PMFSH Past Medical History Medical History (Updated 06/15/22 @ 14:09 by JOSELYN Chow) Absence epileptic syndrome, intractable, without status epilepticus Acute pain of both shoulders Angina pectoris, unspecified Basal cell carcinoma of skin of unspecified eyelid, including canthus Chronic obstructive pulmonary disease, unspecified Chronic pelvic pain in male Concussion with loss of consciousness of 30 minutes or less, sequela Coronary artery disease involving ho-chunk heart without angina pectoris Family history of amyloidosis (~2009) History of basal cell carcinoma (BCC) History of colon polyps 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
[2022-06-16] MEDS: MECLIZINE HCL 25 MG TABLET PO (11:22)
[2022-06-16 11:25] LABS: Glucose Point of Care 110 mg/dl (65-105)
== END 2022-06-16 12:40 | disposition home or self-care (01) ==
LOC: ANHED 09:23 → ANH3MEDSUR 14:25
PROVIDERS: Nurse Practitioner; Physician Assistant; Admitting Provider Chiropractor; Emergency Provider Physician Assistant; PCP Family Medicine; Referring Provider Otolaryngology; Visit Provider Chiropractor
DX: H65.192 Other acute nonsuppurative otitis media, left ear (principal); R42 Dizziness and giddiness; R53.1 Weakness; R51.9 Headache, unspecified; H53.9 Unspecified visual disturbance; E11.42 Type 2 diabetes mellitus with diabetic polyneuropathy; I11.9 Hypertensive heart disease without heart failure; D64.9 Anemia, unspecified; Z20.822 Contact with and (suspected) exposure to COVID-19; G47.33 Obstructive sleep apnea (adult) (pediatric); G25.81 Restless legs syndrome; M15.9 Polyosteoarthritis, unspecified; E29.1 Testicular hypofunction; I25.10 Atherosclerotic heart disease of native coronary artery without angina pectoris; Z95.5 Presence of coronary angioplasty implant and graft; Z79.84 Long term (current) use of oral hypoglycemic drugs; Z79.891 Long term (current) use of opiate analgesic; Z79.899 Other long term (current) drug therapy
CPT/HCPCS: 69433; 36415; 70450; 70487; 70553; 80048; 80053; 80061; 82948; 83036; 83735; 85025; 85027; 85652; 86140; 87636; 96365; 96366; 96367; 96368; 96375; 96376; 99285; A9270; A9577; C8929; G0378; J0131; J2270; J2405; J2543; J3370; J3475; J7030; Q9957; Q9967

== ENCOUNTER 2022-07-03 06:36 | Outpatient (CLI) | payer MEDICARE, SELFPAY ==
--- NOTE | 2022-07-03 09:50 | P.NEURO_ITS ---
Neurology EEG Report General Information Date of Study: 07/03/22 TEST Routine EEG DIAGNOSIS Headache, dizziness CONDITION OF RECORDING Awake, drowsy EEG NUMBER [id number] CLINICAL HISTORY Patient reports he ruptured his ear drum a couple of weeks ago and since then has been having bad headaches and dizziness. EEG DESCRIPTION During the awake state with eyes closed the background consists of 8 Hz posterior dominant rhythm which attenuates appropriately with eye opening. The recording is continuous. There is a well developed anterior-posterior gradient. No significant asymmetries of background activities are noted. With drowsiness there is was waxing and waning of the dominant rhythm with eventual replacement by a mixture of beta, alpha, and theta activity. Patient did not enter stage II sleep. There are no epileptiform discharges or seizures during this recording. Photic stimulation did not elicit any abnormal photoparoxysmal response. IMPRESSION This is a normal routine EEG recorded in awake and drowsy states. There are no electrographic seizures identified, nor are there any epileptiform discharges. Please note that a normal EEG cannot exclude a seizure disorder. Clinical correl ation is recommended.
== END 2022-07-03 06:37 | disposition home or self-care (01) ==
LOC: ANHNEURO 06:37
PROVIDERS: PCP Family Medicine; Visit Provider Family Medicine
DX: R51.9 Headache, unspecified (principal)
CPT/HCPCS: 95816

== ENCOUNTER 2022-07-17 07:54 | Outpatient (CLI) | payer MEDICARE, SELFPAY | END 2022-07-17 07:55 | disposition home or self-care (01) | LOC: ANHAUDASC 07:55 | PROVIDERS: PCP Family Medicine; Visit Provider Otolaryngology | DX: H83.02 Labyrinthitis, left ear (principal); H90.3 Sensorineural hearing loss, bilateral; H90.72 Mixed conductive and sensorineural hearing loss, unilateral, left ear, with unrestricted hearing on the contralateral side | CPT/HCPCS: 92557; 92567 ==

== ENCOUNTER 2022-09-06 09:38 | Outpatient (CLI) | payer MEDICARE, SELFPAY ==
[2022-09-07 08:24] LABS: Basophils Absolute Auto 0.1 K/mm3 (0.0-0.1); Basophils Percent Auto 1.5 % (0.2-1.2); Eosinophils Absolute Auto 0.5 K/mm3 (0-0.3); Eosinophils Percent Auto 8.7 % (0-4.4); Hematocrit 38.6 % (42.0-52.0); Hemoglobin 12.2 g/dL (14.0-18.0); Immature Granulocyte Absolute 0.01 K/mm3 (0.00-0.031); Immature Granulocyte Percent A 0.2 % (0-0.5); Lymphocytes Absolute Auto 1.88 K/mm3 (0.9-3.2); Mean Corpuscular HGB Conc 31.6 g/dl (32-36); Mean Corpuscular Hemoglobin 29.3 pg (26-34); Mean Corpuscular Volume 92.8 fl (80-100); Mean Platelet Volume 9.9 fl (7.4-10.4); Monocytes Absolute Auto 0.7 K/mm3 (0.1-0.6); Monocytes Percent Auto 11.4 % (2.6-8.5); Neutrophils Absolute Auto 2.7 K/mm3 (1.3-6.7); Neutrophils Percent Auto 46.2 % (45.5-73.1); Platelet Count Result 273 k/mm3 (150-375); Red Blood Count 4.16 M/mm3 (4.6-6.20); Red Cell Distribution Width 14.4 % (11.5-14.5); White Blood Count 5.9 K/mm3 (4.5-10.0)
[2022-09-07 08:37] LABS: Alanine Aminotransferase 53 U/L (6-50); Albumin Level 4.7 g/dL (3.5-5.1); Alkaline Phosphatase 61 U/L (38-126); Anion Gap 11 mmol/L (8-16); Aspartate Amino Transferase 45 U/L (17-59); Bilirubin,Total 0.5 mg/dL (0.2-1.3); Blood Urea Nitrogen 15 mg/dL (9-20); Calcium 9.2 mg/dL (8.4-10.2); Carbon Dioxide 27 mmol/L (22-30); Chloride 101 mmol/L (98-107); Cholesterol 136 mg/dL (0-200); Estimated Glomerular Filt Rate > 60; Glucose 97 mg/dL (65-110); HDL Direct 38 mg/dL; Potassium 4.1 mmol/L (3.4-5.0); Sodium 139 mmol/L (137-145); Triglycerides 198 mg/dL (<150)
[2022-09-07 08:48] LABS: LDL Cholesterol Direct 65 mg/dL
[2022-09-07 09:43] LABS: Creatinine Urine 148.1 mg/dL
[2022-09-07 09:46] LABS: MALB Creatinine Ratio 5.3 mg/g (0-30); Microalbumin Urine Random 7.8 mg/L (0-16.7)
== END 2022-09-06 09:39 | disposition home or self-care (01) ==
LOC: ANHGOSHLAB 09:40
PROVIDERS: PCP Family Medicine; Visit Provider Nurse Practitioner
DX: E11.9 Type 2 diabetes mellitus without complications (principal); I10 Essential (primary) hypertension; E78.5 Hyperlipidemia, unspecified
CPT/HCPCS: 36415; 80053; 80061; 82043; 83036; 85025

== ENCOUNTER → 2022-10-11 13:55 | Outpatient (CLI) | payer MEDICARE, SELFPAY ==
--- NOTE | ~2022-10-11 | XR_ITS ---
XR lumbar spine 2-3V DATE: 10/11/2022 14:18 INDICATION: Low back pain radiating to both legs. No injury. TECHNIQUE: AP, lateral, coned lateral lumbosacral views COMPARISON: 11/09/2021 MR lumbar spine FINDINGS: Mild thoracolumbar levoscoliosis. There is prominent degenerative spurring in the lower thoracic spine. Moderately prominent degenerative disc disease at L1-2. Mild degenerative disc disease at L2-3, L3-4, L4-5. There is severe degenerative disc disease at L5-S1 with virtual obliteration of disc space and eburna tion and spurring. There is grade 1 anterolisthesis at L5-S1, likely due to degenerative change at the apophyseal joints . The sacroiliac joints are intact. IMPRESSION: Multilevel degenerative disc disease, severe at L5-S1 Grade 1 anterolisthesis at L5-S1, likely due to degenerative change at the apophyseal joints Prominent degenerative spurring of the lower thoracic spine Reviewed, dictated and finalized at location [] IMPRESSION: Multilevel degenerative disc disease, severe at L5-S1 Grade 1 anterolisthesis at L5-S1, likely due to degenerative change at the apop hyseal joints Prominent degenerative spurring of the lower thoracic spine
== END ==
PROVIDERS: PCP Family Medicine; Visit Provider Nurse Practitioner Family
DX: M54.16 Radiculopathy, lumbar region (principal); M51.37 Other intervertebral disc degeneration, lumbosacral region
CPT/HCPCS: 72100

== ENCOUNTER → 2022-11-26 11:19 | Outpatient (CLI) | payer MEDICARE, SELFPAY ==
--- NOTE | ~2022-11-26 | CT_ITS ---
EXAMINATION: CT brain wo con DATE: 11/26/2022 11:33 INDICATION: Headache, dizziness, weakness. Nausea. TECHNIQUE: Computed tomography (CT) of the head was performed without intravenous contrast. The mA wa s adjusted according to patient size. Iterative reconstruction technique was employed. Exam dose: 67 4.51 mGy-cm total exam DLP. COMPARISON: None FINDINGS: Prominent bilateral carotid siphon internal carotid artery calcifications and vertebral art mainor calcification are noted. There is nonspecific diminished attenuation of the cerebral white matter, likely due to chronic small vessel ischemic changes. No intracranial mass lesion or hemorrhage or cerebrovascular accident, midline shift or mass effect i s detected. Normal ventricular size. No subdural or epidural hematoma. No fracture or bone destruction of the cranial vault. There is minimal opacification of the left frontal sinus and mild focal posterior medial right maxill phill sinus mucoperiosteal thickening. There are a few opacified inferior left mastoid air cells. The p aranasal sinuses and mastoid air cells are otherwise unremarkable. IMPRESSION: Cerebral atherosclerosis and chronic small vessel ischemic changes of the cerebral white matter No acute intracranial finding Reviewed, dictated and finalized at Location A. Reviewed, dictated and finalized at location L.
== END ==
PROVIDERS: PCP Nurse Practitioner Family; Visit Provider Nurse Practitioner Family
DX: R51.9 Headache, unspecified (principal); R42 Dizziness and giddiness; R53.1 Weakness; I67.2 Cerebral atherosclerosis; R93.0 Abnormal findings on diagnostic imaging of skull and head, not elsewhere classified
CPT/HCPCS: 70450

== ENCOUNTER 2022-11-26 21:09 | Outpatient (NON) | payer MEDICARE, SELFPAY | END 2022-11-26 21:10 | disposition home or self-care (01) | LOC: ANHLAB 21:22 | PROVIDERS: PCP Nurse Practitioner Family; Visit Provider Nurse Practitioner Family | DX: R53.1 Weakness (principal) | CPT/HCPCS: 87077; 87086; 87147; 87181; 87186 ==

== ENCOUNTER 2022-12-18 12:34 | Outpatient (CLI) | payer MEDICARE, SELFPAY ==
--- NOTE | ~2022-12-18 | MR_ITS ---
EXAMINATION: MR thoracic spine wo con DATE: 12/18/2022 14:14 INDICATION: Back pain TECHNIQUE: Magnetic resonance imaging (MRI) of the thoracic spine was performed without intravenous c ontrast. Sagittal localizer T1-weighted FSE of the cervicothoracic spine was obtained. Thoracic spine sequences included sagittal T2-weighted FSE, sagittal T1-weighted SE, Sagittal T2-weighted FS FSE, a nd axial T2-weighted FSE. COMPARISON: CT dated 04/19/2017 FINDINGS: Alignment is normal.Vertebral body heights are normal. Normal marrow signal. Again seen is disc desic cation and mild disc height loss at multiple levels from T1-T2 through T11-T12. The thoracic discs do not extend beyond the endplate margins with no central canal stenosis. There is a small right parace ntral disc protrusion at T12-L1 resulting in only minimal central canal stenosis at this level. There is normal spinal cord signal. There is multilevel moderate to severe facet osteoarthritis throughout the thoracic spine which contributes to mild neural foraminal stenosis at several levels on the left and right sides of the mid to lower thoracic spine. Paravertebral soft tissues are unremarkable. IMPRESSION: 1. Mild thoracic spondylosis. Reviewed, dictated and finalized at location A.
--- NOTE | ~2022-12-18 | MR_ITS ---
EXAMINATION: MR brain/brain stem wo/w con DATE: 12/18/2022 15:02 INDICATION: Dizziness. Headache. Weakness. TECHNIQUE: Magnetic resonance imaging (MRI) of the brain and brainstem was performed without and with 20 mL Multihance intravenous contrast. Sequences included sagittal and axial T1-weighted FSE, axial diffusion-weighted FS EPI, axial T2*-weighted GRE, axial T2-weighted FLAIR Propeller, axial T2-weight ed Propeller, small qmfii-st-qhrx coronal FIESTA, small aeoxc-oo-kdif coronal T1-weighted FSE, and sm all hlysg-[id number]-[id number] axial T1-weighted SPGR. Postcontrast sequences included axial T1-weighted FSE, smal l nyoxx-yv-rnyv coronal T1-weighted FSE, and small xvyfr-jw-szby axial T1-weighted SPGR. Apparent dif fusion coefficient (ADC) maps were created. COMPARISON: Head CT dated 11/26/2022 and brain MR dated 06/05/2022 FINDINGS: There are no areas of restricted diffusion to suggest acute infarction. No intracranial hemorrhage or abnormal intracranial mass lesion. No significant change in a few scattered areas of nonspecific inc reased T2-weighted signal intensity in the cerebral white matter and rodrigo which is within normal limi ts for age. Again seen is a thin linear enhancing developmental venous anomaly in the left frontopari etal region. There are no intraparenchymal signal abnormalities seen on the other pulse sequences. Th e ventricles are symmetric and normal in size. There are no abnormal extra-axial fluid collections. F low voids are seen in the cerebral arteries on the T2-weighted sequences consistent with their expect ed patency. Decrease in size of a now small left mastoid effusion. Normal seventh/eighth cranial nerv e complexes. No cerebellopontine angles masses. No fluid in the right mastoid or bilateral middle ea r cavities. Visualized orbits and soft tissues are unremarkable. Centimeters from the developmental v enous anomaly there are no other areas of abnormal enhancement on the post contrast images. IMPRESSION: 1. Normal aging brain. 2. Interval decrease in size of a now small left mastoid effusion. Reviewed, dictated and finalized at location A.
--- NOTE | ~2022-12-18 | MR_ITS ---
EXAMINATION: MR lumbar spine wo con DATE: 12/18/2022 14:14 INDICATION: Lumbar surgery for decompression presenting with back pain. TECHNIQUE: Magnetic resonance imaging (MRI) of the lumbar spine was performed without intravenous con trast. Sequences included sagittal T2-weighted FSE, sagittal T2-weighted FS FSE, sagittal T1-weighted FSE, and axial T2-weighted FSE. COMPARISON: 11/09/2021 FINDINGS: 2 mm retrolisthesis L1 on L2, L4 on L5 and 3 mm anterolisthesis L5 on S1. Vertebral body heights are normal. Severe disc height loss at L5-S1. Mild disc desiccation and mild disc height loss at T10-T11 through L4-L5 with the exception of T12-L1 where the disc appears normal and L2-L3 where there is dis c desiccation but no significant disc height loss. Annular fissures at L1-L2 and L3-L4 through L5-S1. Mild fibrovascular degenerative endplate changes posteriorly at L3-L4 and minimally at L5-S1. Bone m arrow signal is otherwise normal. The conus medullaris terminates at L1. There is normal signal in th e caudal spinal cord. Postoperative scarring posterior to the L3-L4 spinous processes with right-side d hemilaminotomy. This is new since the prior study. Paravertebral soft tissues are otherwise unremar kable. The following disc levels are specifically discussed: T12-L1: The disc does not extend beyond the endplate margin. There is mild bilateral facet joint oste oarthritis. There is no neural foraminal stenosis. There is no central canal stenosis. L1-L2: Disc is bulging with small central disc extrusion with disc material extending 4 mm caudal to the level of the superior endplate of L2. There is mild bilateral facet joint osteoarthritis. There i s mild bilateral neural foraminal stenosis. There is mild central canal stenosis. L2-L3: Small left foraminal zone disc protrusion. There is mild to moderate bilateral facet joint ost eoarthritis. There is mild to moderate bilateral neural foraminal stenosis. There is no central canal stenosis. L3-L4: Disc is mildly bulging with superimposed annular fissure and small central disc extrusion with disc material extending couple millimeter caudal to the level of the superior endplate of L4. Chief Compliance Officer ior decompression with right-sided hemilaminotomy. There is moderate left and mild to moderate right facet joint osteoarthritis. There is moderate bilateral neural foraminal stenosis. There is now no ce ntral canal stenosis. L4-L5: Disc is mildly bulging with superimposed small central disc extrusion disc material extending couple millimeter caudal to the level of the superior endplate of L5. There is moderate left and mild to moderate right facet joint osteoarthritis. There is mild to moderate bilateral neural foraminal s tenosis. There is mild central canal stenosis. L5-S1: Annular fissure and disc extrusion extending from foraminal zone to foraminal zone with disc m aterial extending up to 5 mm cephalad to the level of the inferior endplate of L5. There is severe bi lateral facet joint osteoarthritis. There is moderate left and moderate to severe right neural forami nal stenosis. There is mild central canal stenosis. IMPRESSION: 1. Interval right hemilaminotomy at L3-L4 with resolution of prior moderate central canal stenosis at this level. 2. Otherwise unchanged severe lumbosacral and mild to moderate lumbar spondylosis. Reviewed, dictated and finalized at location A. IMPRESSION: 1. Interval right hemilaminotomy at L3-L4 with resolution of prior moderate rajat tral canal stenosis at this level. 2. Otherwise unchanged severe lumbosacral and mild to moderate lumbar spondylos is.
--- NOTE | ~2022-12-18 | MR_ITS ---
EXAMINATION: MR cervical spine wo con DATE: 12/18/2022 14:14 INDICATION: Cervical radiculopathy TECHNIQUE: Magnetic resonance imaging (MRI) of the cervical spine was performed without intravenous c ontrast. Sequences included sagittal T2-weighted FSE, sagittal T2-weighted FS FSE, sagittal T1-weight ed FSE, axial MERGE and axial T2-weighted FSE. COMPARISON: 05/18/2020 FINDINGS: Straightening of the normal cervical lordosis. No spondylolisthesis. Vertebral body heights are norm al. Bone marrow signal intensity is normal. Mild to moderate disc height loss at C5-C6. Mild disc he ight loss at C3-C4, C4-C5 and C6-C7. Cord signal intensity is normal. Cervical soft tissues are unrem arkable. The following disc levels are specifically discussed: C2-C3: The disc does not extend beyond the endplate margin. There is mild left and mild to moderate r ight uncovertebral joint osteoarthritis. There is moderate right and severe left facet joint osteoart hritis. There is mild right neural foraminal stenosis. There is no central canal stenosis. C3-C4: Disc is bulging. There is moderate right and mild to moderate left uncovertebral joint osteoar thritis. There is moderate bilateral facet joint osteoarthritis. There is mild and moderate right and moderate left neural foraminal stenosis. There is mild central canal stenosis. C4-C5: Disc is mildly bulging. There is mild left and mild to moderate right uncovertebral joint oste oarthritis. There is moderate bilateral facet joint osteoarthritis. There is mild and moderate left a nd moderate right neural foraminal stenosis. There is minimal central canal stenosis. C5-C6: Disc is bulging. There is moderate bilateral uncovertebral joint osteoarthritis. There is mode rate left and mild to moderate right facet joint osteoarthritis. There is mild to moderate bilateral neural foraminal stenosis. There is mild central canal stenosis. C6-C7: Disc is bulging. There is mild bilateral uncovertebral joint osteoarthritis. There is mild rig ht and mild to moderate left facet joint osteoarthritis. There is mild bilateral neural foraminal anna nosis. There is mild central canal stenosis. C7-T1: The disc does not extend beyond the endplate margin. There is no uncovertebral joint osteoarth ritis. There is mild to moderate bilateral facet joint osteoarthritis. There is no neural foraminal s tenosis. There is no central canal stenosis. IMPRESSION: 1. No significant change in mild to moderate cervical spondylosis. Reviewed, dictated and finalized at location A.
== END 2022-12-18 12:35 | disposition home or self-care (01) ==
PROVIDERS: PCP Family Medicine
DX: R42 Dizziness and giddiness (principal); M47.22 Other spondylosis with radiculopathy, cervical region; M47.814 Spondylosis without myelopathy or radiculopathy, thoracic region; M47.816 Spondylosis without myelopathy or radiculopathy, lumbar region; R94.02 Abnormal brain scan
CPT/HCPCS: 70553; 72141; 72146; 72148; A9577

== ENCOUNTER → 2023-02-06 15:35 | Outpatient (CLI) | payer MEDICARE, SELFPAY ==
--- NOTE | ~2023-02-06 | XR_ITS ---
XR ankle RT min 3V DATE: 02/06/2023 15:51 INDICATION: Right ankle pain and swelling TECHNIQUE: 4 views COMPARISON: None FINDINGS: No recent fracture or dislocation of the ankle or disruption of the ankle mortise is detect ed. Slight plantar calcaneal enthesopathy. Anterior and posterior tibial and dorsalis pedis artery calcifications. IMPRESSION: No recent fracture or dislocation of the ankle Reviewed, dictated and finalized at location L.
== END ==
PROVIDERS: PCP Family Medicine; Visit Provider Family Medicine
DX: M25.571 Pain in right ankle and joints of right foot (principal)
CPT/HCPCS: 73610

== ENCOUNTER 2023-03-14 08:48 | Outpatient (CLI) | payer MEDICARE, SELFPAY ==
[2023-03-14 13:54] LABS: Basophils Absolute Auto 0.1 K/mm3 (0.0-0.1); Basophils Percent Auto 1.7 % (0.2-1.2); Eosinophils Absolute Auto 0.4 K/mm3 (0-0.3); Eosinophils Percent Auto 7.2 % (0-4.4); Hematocrit 38.8 % (42.0-52.0); Hemoglobin 12.3 g/dL (14.0-18.0); Immature Granulocyte Absolute 0.02 K/mm3 (0.00-0.031); Immature Granulocyte Percent A 0.3 % (0-0.5); Lymphocytes Absolute Auto 1.94 K/mm3 (0.9-3.2); Lymphocytes Percent Auto 33.9 % (18.3-44.2); Mean Corpuscular HGB Conc 31.7 g/dl (32-36); Mean Corpuscular Hemoglobin 29.4 pg (26-34); Mean Corpuscular Volume 92.8 fl (80-100); Mean Platelet Volume 10.2 fl (7.4-10.4); Monocytes Absolute Auto 0.6 K/mm3 (0.1-0.6); Monocytes Percent Auto 11.2 % (2.6-8.5); Neutrophils Absolute Auto 2.6 K/mm3 (1.3-6.7); Neutrophils Percent Auto 45.7 % (45.5-73.1); Platelet Count Result 254 k/mm3 (150-375); Red Blood Count 4.18 M/mm3 (4.6-6.20); Red Cell Distribution Width 14.2 % (11.5-14.5); White Blood Count 5.7 K/mm3 (4.5-10.0)
[2023-03-14 14:22] LABS: LDL Cholesterol Direct 76 mg/dL
[2023-03-14 14:58] LABS: Alanine Aminotransferase 50 U/L (6-50); Albumin Level 4.5 g/dL (3.5-5.1); Alkaline Phosphatase 61 U/L (38-126); Anion Gap 12 mmol/L (8-16); Aspartate Amino Transferase 41 U/L (17-59); Bilirubin,Total 0.5 mg/dL (0.2-1.3); Blood Urea Nitrogen 19 mg/dL (9-20); Carbon Dioxide 28 mmol/L (22-30); Chloride 100 mmol/L (98-107); Cholesterol 142 mg/dL (0-200); Estimated Glomerular Filt Rate > 60; Glucose 112 mg/dL (65-110); HDL Direct 42 mg/dL; Potassium 4.1 mmol/L (3.4-5.0); Sodium 140 mmol/L (137-145); Triglycerides 143 mg/dL (<150)
[2023-03-14 15:13] LABS: Hemoglobin A1C 5.8 % (<5.7)
[2023-03-14 15:49] LABS: Prostate Specific Antigen 1.5 ng/mL (< OR = 4.0)
== END 2023-03-14 08:49 | disposition home or self-care (01) ==
PROVIDERS: PCP Family Medicine; Visit Provider Nurse Practitioner Family
DX: Z12.5 Encounter for screening for malignant neoplasm of prostate (principal); I10 Essential (primary) hypertension; E11.9 Type 2 diabetes mellitus without complications; Z13.220 Encounter for screening for lipoid disorders; Z13.29 Encounter for screening for other suspected endocrine disorder
CPT/HCPCS: 36415; 80053; 80061; 83036; 84153; 84443; 85025; G0103

== ENCOUNTER → 2023-03-19 09:12 | Outpatient (CLI) | payer MEDICARE, SELFPAY ==
--- NOTE | ~2023-03-19 | XR_ITS ---
Clinical Indication: Other signs/symptoms involving the Circulatory/respiratory system PA and lateral views of the chest: Comparison: 04/07/2020 Findings: The lungs are clear, without evidence of focal consolidation or pleural effusion. Cardiome diastinal silhouette is stable. Bones and soft tissues are unremarkable. Impression: Normal chest. Reviewed, dictated and finalized at location . 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
== END ==
PROVIDERS: PCP Family Medicine; Visit Provider Family Medicine
DX: R09.89 Other specified symptoms and signs involving the circulatory and respiratory systems (principal)
CPT/HCPCS: 71046

== ENCOUNTER → 2023-03-26 12:44 | Outpatient (CLI) | payer MEDICARE, SELFPAY ==
--- NOTE | ~2023-03-26 | MR_ITS ---
EXAMINATION: MR ankle RT wo con DATE: 03/26/2023 14:22 INDICATION: Right lower leg, ankle and foot pain. TECHNIQUE: 1. Magnetic resonance imaging (MRI) of the right lower leg was performed without intravenous contrast . Sequences included axial, sagittal and coronal T1-weighted FSE and fluid sensitive FSE STIR. The co ntralateral left lower leg is included on the coronal images. 2. MRI of the right ankle was performed without intravenous contrast. Sequences included sagittal, co eliazar, and axial PD-weighted FSE and PD-weighted FS FSE. 3. MRI of the right foot was performed without intravenous contrast. Axial and coronal PD-weighted FS FSE, sagittal and coronal T1-weighted FSE, axial PD-weighted FSE and sagittal fluid sensitive FSE ST IR. COMPARISON: None. FINDINGS: RIGHT LOWER LEG: Bone marrow signal is normal throughout with no reactive edema, fracture or pathologic marrow replaci ng process. No periostitis. There is a small intramuscular lipoma within the contralateral left gastr ocnemius muscle. Otherwise symmetric normal muscle bulk and signal in the bilateral lower legs. RIGHT ANKLE AND HINDFOOT: Medial ankle ligaments: Deep and superficial deltoid ligaments as well as the spring ligament are normal. Lateral ankle ligaments: The anterior and posterior inferior tibiofibular ligaments are normal. Mild thickening of the anterio r talofibular and calcaneofibular ligaments and lateral side of the posterior talofibular ligament wi thout significant surrounding edema consistent with mild scarring related to chronic sprains. There i s a chronic nonunited avulsion fracture involving the anterior tip of the lateral malleolus including the footplate of the anterior talofibular ligament also a small portion of the anterior footplate of the posterior talofibular ligament. Tendons: Achilles tendon is normal. The peroneus longus and brevis tendons are normal. The tibialis anterior a nd extensor hallucis longus and extensor digitorum longus tendons are normal. The tibialis posterior, flexor digitorum longus and flexor hallucis longus tendons are normal. Plantar fascia: Plantar aponeurosis is normal. Bones/other: Nondisplaced lateral malleolar avulsion fractures previously detailed. No acute fracture. There is a likely chronic osteochondral lesion without significant surrounding marrow edema located along the po sterior medial aspect of the talar dome. The defect measures 1.8 cm AP and 1.0 cm medial to lateral w ith 3 loose osteochondral fragments in situ. Mild osteoarthritis at the right ankle with mild partial -thickness cartilage loss along the overlying medial aspect of the medial tibial plafond. Additional mild osteoarthritis with nonuniform partial-thickness cartilage loss at the subtalar, calcaneocuboid and naviculocuneiform articulations. Fluid: Small subtalar joint effusion collecting in the anterior and posterior recesses and likely communicat ing with moderate amount fluid in the flexor hallucis longus tendon sheaths which extends from above level of the ankle to the level of the master knot of Bal. RIGHT FORE- AND MIDFOOT: Bone alignment is normal. Normal bone marrow signal throughout with no reactive edema, fracture or pa thologic marrow replacing process. There is mild osteoarthritis at the tarsal metatarsal joints and m ild to moderate osteoarthritis at the articulations between the base of the metatarsals with associat ed subarticular edema-like signal change at both sides of the articulation between the third and four th metatarsals. Additional mild osteoarthritis at the first metatarsophalangeal and few of the distal interphalangeal joints. The Lisfranc ligament complex is normal. The flexor and extensor tendons are normal. Normal muscle bulk and signal of the intrinsic musculature of the foot. IMPRESSION: 1. Mild scarring of the lateral stabilizing ligaments of the ankle with nondisplac
== END ==
PROVIDERS: PCP Nurse Practitioner Family; Visit Provider Nurse Practitioner Family
DX: M19.071 Primary osteoarthritis, right ankle and foot (principal)
CPT/HCPCS: 73718; 73721

== ENCOUNTER → 2023-04-10 13:17 | Outpatient (CLI) | payer MEDICARE, SELFPAY ==
--- NOTE | ~2023-04-10 | CT_ITS ---
EXAMINATION:CT diagnostic chest w con DATE: 04/10/2023 13:42 INDICATION: Other specified symptoms and signs involving the respiratory system. Bibasilar crackles. Left sided chest pain. Shortness of breath. TECHNIQUE: Computed tomography (CT) of the chest was performed with 75 mL Omnipaque 350 intravenous c ontrast. Automated exposure control and iterative reconstruction technique were employed. The dose-le ngth product (DLP) was 713.43 mGy-cm. COMPARISON: Chest CT 04/19/2017 FINDINGS: The lung volumes are small. There is mild elevation of left hemidiaphragm. There is widespr ead peripheral septal thickening in the lungs. There is mild bronchiectasis in the inferior lungs. No honeycombing. No pleural effusion. The heart size is normal. There are coronary artery calcification s. No pericardial effusion. There is diffuse hepatic steatosis. There is mild thoracic spondylosis. IMPRESSION: 1. Mild chronic interstitial lung disease in a pattern of nonspecific interstitial pneumonia (NSIP) v ersus usual interstitial pneumonia (UIP). Reviewed, dictated and finalized at location E. 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 Mild chronic interstitial lung disease in a pattern of nonspecific interstit ial pneumonia (NSIP) versus usual interstitial pneumonia (UIP).
== END ==
PROVIDERS: PCP Family Medicine; Visit Provider Family Medicine
DX: R06.02 Shortness of breath (principal); R09.89 Other specified symptoms and signs involving the circulatory and respiratory systems; J84.9 Interstitial pulmonary disease, unspecified
CPT/HCPCS: 71260; Q9967

== ENCOUNTER 2023-05-02 11:43 | Outpatient (CLI) | payer MEDICARE, SELFPAY ==
[2023-05-02 13:54] LABS: Rheumatoid Factor < 12.0 IU/ML (<12)
[2023-05-06 08:38] LABS: ANA Cascade Screen Negative (Negative)
[2023-05-06 22:53] LABS: Anti Cyclic Citrullinated Pept <16 Units (<20)
== END 2023-05-02 11:44 | disposition home or self-care (01) ==
LOC: ANHGOSHLAB 11:45
PROVIDERS: PCP Family Medicine; Visit Provider Nurse Practitioner Family
DX: J84.9 Interstitial pulmonary disease, unspecified (principal)
CPT/HCPCS: 36415; 86038; 86200; 86225; 86235; 86331; 86364; 86430; 86606; 86609

== ENCOUNTER 2023-05-12 14:33 | Outpatient (CLI) | payer MEDICARE, SELFPAY ==
--- NOTE | 2023-05-12 16:29 | WPDSIXMINUTE ---
Six Minute Walk Procedure Procedure Performed Pulmonary Stress Test (6 min walk) Six Minute Walk Six Minute Walk: This is a 6 minute walk test. The test was performed and interpreted in accordance with the 2014 ERS/ATS task force guidelines. Findings: The patient's resting room air oxygen saturation measured by pulse oximetry was 95% and heart rate was 78 bpm. Patient ambulated for 305 meters and oxygen saturation remained 91 to 97%. Heart rate at the end of the study was 100 bpm. The patient did not qualify for supplemental oxygen at rest or with ambulation. There are no prior studies for comparison.
--- NOTE | 2023-05-12 16:30 | WPDPFTINT ---
PFT Procedure Performed PFT Procedure Performed Spirometry with Pre/Post Bronchodilator Plethysmography (Lung Vol) Diffusing Cap (DLCO) Flow Vol Loop PFT Interpretation This is a pulmonary function test with pre and post-bronchodilator spirometry, plethysmography and diffusing capacity. The test was performed and results interpreted in accordance with the 2019 and 2005 ATS/ERS Task Force guidelines respectively using the Global Lung Function Initiative-2012 reference equations. Patient demonstrated good effort and cooperation. Reproducibility criteria were met. The quality of the pre bronchodilator spirometry maneuver was Grade A and post bronchodilator spirometry maneuver was Grade A. Of note, the patient had persistent coughing throughout the test. Findings: Spirometry: The contour the inspiratory and expiratory flow tracing are normal. The pre bronchodilator FVC is 2.18 L, 51% predicted. The pre bronchodilator FEV1 is 2.15 L, 66% predicted. The pre bronchodilator FEV1: FVC ratio is 99%. The post bronchodilator FVC is 2.70 L, representing a 24% increase. The post bronchodilator FEV1 is 2.06 L, representing a 4% decrease. The post bronchodilator FEV1: FVC ratio 76%. Plethysmography: The total lung capacity is 4.97 L, 71% predicted. The functional residual capacity is 1.48 L, 40% predicted. The residual volume is 1.18 L, 48% predicted. Diffusing capacity: The diffusing capacity unadjusted for hemoglobin and carboxyhemoglobin is 17.3, 65% predicted. The diffusing capacity adjusted for alveolar volume is 5.16, 130% predicted. In comparison to previous pulmonary function testing performed on 12/01/2017 the post bronchodilator FVC is unchanged from 2.92 L to 2.70 L. The post bronchodilator FEV1 is decreased from 2.74 L to 2.06 L. The total lung capacity is unchanged from 5.51 L to 4.97 L. The functional residual capacity is decreased from 2.55 L to 1.48 L. The residual volume has decreased from 2.35 L to 1.18 L. The diffusing capacity unadjusted for hemoglobin and carboxyhemoglobin is decreased from 21.1 to 17.3. The diffusing capacity adjusted for alveolar volume is unchanged from 4.77 to 5.16. Impression: There is a moderately restrictive ventilatory abnormality. The spirometry is normal without evidence of an obstructive abnormality. There is significant improvement after inhaling a single dose of albuterol. The diffusing capacity unadjusted for hemoglobin and carboxyhemoglobin is mildly decreased and normalizes when adjusted for alveolar volume. In comparison to previous pulmonary function testing on 12/01/2017 there has been a greater than anticipated time dependent decrease in the FEV1, functional residual capacity, residual volume and diffusing capacity unadjusted for hemoglobin and carboxyhemoglobin with no significant change in the FVC, total lung capacity and diffusing capacity adjusted for alveolar volume. Clinical correlation is recommended
== END 2023-05-12 14:34 | disposition home or self-care (01) ==
LOC: ANHPFT 14:34
PROVIDERS: PCP Family Medicine; Visit Provider Nurse Practitioner Family
DX: R06.09 Other forms of dyspnea (principal); J84.9 Interstitial pulmonary disease, unspecified
CPT/HCPCS: 94060; 94618; 94726; 94729

== ENCOUNTER 2023-06-17 07:56 | Outpatient (CLI) | payer MEDICARE, SELFPAY ==
[2023-06-17 09:17] LABS: Anion Gap 9 mmol/L (8-16); Blood Urea Nitrogen 14 mg/dL (9-20); Calcium 9.9 mg/dL (8.4-10.2); Carbon Dioxide 26 mmol/L (22-30); Chloride 102 mmol/L (98-107); Estimated Glomerular Filt Rate > 60; Glucose 114 mg/dL (65-110); Potassium 4.1 mmol/L (3.4-5.0); Sodium 137 mmol/L (137-145)
== END 2023-06-17 07:57 | disposition home or self-care (01) ==
PROVIDERS: Anesthesiology; PCP Family Medicine; Visit Provider Orthopaedic Surgery
DX: E11.9 Type 2 diabetes mellitus without complications (principal); Z01.818 Encounter for other preprocedural examination
CPT/HCPCS: 36415; 80048

== ENCOUNTER 2023-06-26 00:20 | Day surgery (SDC) | payer MEDICARE, SELFPAY ==
[2023-06-12 08:31] VITALS: BMI 41.7
--- NOTE | 2023-06-12 08:47 | PC.NURSE ---
PRE-OP INSTRUCTIONS, PLEASE READ CAREFULLY Report to the Outpatient Waiting Room, entrance under the green pavilion located off [facility], at time _1000_ on date _06/26/23_. Planned Procedure Time: _1200_. Time changes happen often and if your time is changed the preop area will call you the afternoon before. - You and your visitor will be asked to self-screen and do not enter if you have any COVID symptoms. - A mask is optional within the hospital at this time. Patients may have clear liquids (water, carbonated beverages, clear teas, apple juice) until 3 hours prior to surgery (0900 AM) with a maximum of 20 ounces. - No food from midnight until time of surgery Take the following medications with a SIP of water the morning of surgery: _TYLENOL, NITROGLYCERIN, XOPENEX INHALER IF NEEDED_ DO NOT STOP ANY OF YOUR OTHER PRESCRIPTION MEDICATIONS PRIOR TO SURGERY ?EXCEPT THE FOLLOWING Medications to discontinue per physician ___NONE____, Date to take last dose Please no make-up, nail burmese, hairspray, perfume, deodorant, or body powder the day of surgery. No jewelry (including any body piercings) or valuables the day of surgery, leave them at home. Please take a shower or bath the night before, or the morning of, surgery with an antibacterial soap. Wear comfortable, loose fitting clothing. - Jewelry must be removed prior to entering the operating room. Rings and piercings that are not removed may be cut off. - The hospital will not accept responsibility for valuables. - Please leave all valuables, including medications, at home the day of surgery. If you are going home after surgery, a licensed driver license technician must drive you home. - NO public transportation without another adult if you receive anesthesia. - We recommend that an adult stay with you for 24 hours following discharge. - We also recommend that you do not drive, make important decision, drink alcoholic beverages, or take any drugs that were not prescribed by your health care provider for at least 24 hours after your discharge time. Follow any additional instructions given to you from your surgeon. If you or anyone in your household have experienced Covid symptoms in the past week, please notify your surgeon or the nurse liaison at the phone number below for possible testing. Telephone instructions given to _PATIENT_and asked if any additional questions and then verbalized understanding. Patient advised to call surgeon office or pre surgery nurse liaison [phone] if any additional questions.
[2023-06-26] VITALS (8 sets, daily range): BP systolic 118–134; BP diastolic 77–85; PULSE 63–73; RESP 14–16; TEMP 36.6–37.2; O2SAT 93–98
--- NOTE | 2023-06-26 08:38 | WPDHPUPDATE1 ---
History and Physical Update Update Date/Time: 06/26/23 08:38 History and Physical has been reviewed, including an updated exam of the patient. There are NO changes in the patient's condition. Risks, benefits, and alternatives have been discussed and questions answered. Patient agrees to proceed with procedure.
[2023-06-26 09:18] LABS: Glucose Point of Care 98 mg/dl (65-105)
[2023-06-26] MEDS: KETOROLAC 15 MG/ML VIAL (*BKC) IV PUSH (09:45)
[2023-06-26] MEDS: ACETAMINOPHEN 500 MG TABLET 1000 MG PO (09:45)
[2023-06-26] MEDS: LACTATED RINGERS 1,000 ML 30 ML IV CONT ×2 (09:45→12:07)
--- NOTE | 2023-06-26 10:05 | WPDANESEPPF ---
Anes - Initial Pre Proc Eval Procedure: Operation Date: 06/26/23 10:30 Proposed Procedures p Right Ankle Arthroscopy with Debridement Microfracture Osteochondral Defect Lesion, Proceed as Indicated - Deandre Box MD Date/Time: 06/26/23 10:05 Surgeon: Deandre Box MD Pre Op Diagnosis: right Osteochondral Defect Lesion, pain Patient Data Age: 67 Gender: M Height: 1.78 m Weight: 131.81 kg Allergies Allergy/AdvReac Type Severity Reaction Status Date / Time Tetanus Vaccines and Toxoid Allergy Unknown Nausea Verified 06/12/23 08:28 Home Medications Medication Instructions Recorded Confirmed Type chlorthalidone 25 mg tablet 25 mg PO DAILY 03/15/19 06/12/23 History nitroglycerin 0.4 mg sublingual 0.4 mg sublingual Q5M PRN chest 03/15/19 06/12/23 History tablet pain metoprolol succinate 50 mg 50 mg PO HS 11/29/19 06/12/23 History tablet,extended release 24 hr blood sugar diagnostic (Accu-Chek See Rx Instructions .Route 03/15/22 06/12/23 Rx Cathryn Plus test strips) .COMPLEX #200 strips lancets (Accu-Chek Softclix See Rx Instructions .Route 03/15/22 06/12/23 Rx Lancets) .COMPLEX #200 ea sumatriptan succinate 100 mg 100 mg PO DAILY PRN migraine 09/06/22 06/12/23 Rx tablet (Imitrex) headache #30 tabs metformin 1,000 mg tablet 1,000 mg PO DAILY #90 tabs 03/10/23 06/12/23 Rx atorvastatin 40 mg tablet 40 mg PO QHS 03/19/23 06/12/23 History irbesartan 150 mg tablet 150 mg PO QHS 03/19/23 06/12/23 History levalbuterol tartrate 45 1 - 2 inh inhalation Q6H PRN 05/28/23 06/12/23 Rx mcg/actuation aerosol inhaler shortness of breath or wheezing #15 grams Spiriva Respimat 1.25 2 puff inhalation Q24H #4 grams 06/04/23 06/12/23 Rx mcg/actuation solution for inhalation (tiotropium bromide) acetaminophen 500 mg tablet 1,000 mg PO QID PRN Pain 06/12/23 06/12/23 History aspirin 81 mg capsule 81 mg PO HS 06/12/23 06/12/23 History hydrocodone 5 mg-acetaminophen 325 1 tablet PO Q6H PRN pain #20 tabs 06/26/23 Rx mg tablet ondansetron 8 mg disintegrating 8 mg PO Q8H PRN nausea and 06/26/23 Rx tablet vomiting #10 tabs polyethylene glycol 3350 17 gram 17 g PO DAILY PRN constipation #14 06/26/23 Rx oral powder packet ea sennosides 8.6 mg-docusate sodium 1 tab-cap PO BID PRN constipation 06/26/23 Rx 50 mg tablet (Senna with Docusate #20 tabs Sodium) Laboratory Tests 06/26/23 09:16 POC Capillary Glucose 98 mg/dl (65-105) Patient hx anesthesia problems: none Family hx anesthesia problems: none Results Review: All pre-operative results and documents have been reviewed as part of the pre-operative evaluation. [facility] Past Medical History Medical History Acute otitis media with effusion of left ear Acute sinusitis Acute suppur left otitis media w/spontan rupture of tympanic membrane Allergic rhinitis Avulsion fracture Basal cell carcinoma of skin of unspecified eyelid, including canthus Chest pain at rest Chronic obstructive pulmonary disease, unspecified Chronic pelvic pain in male Coronary artery disease involving [place] heart without angina pectoris CSF rhinorrhea Dizziness Headache History of basal cell carcinoma (BCC) History of colon polyps Hypertension Labyrinthitis, left ear Left acute otitis media Left-sided weakness Mastoiditis of left side Migraine with aura, not intractable, without status migrainosus (~2014) Nasal congestion Nasal septal deviation CALI (obstructive sleep apnea) (~2008) Osteochondral talar dome lesion Other hyperlipidemia (~2008) Otitis media, left Otorrhea, left ear Primary osteoarthritis involving multiple joints (~2008) Restless legs syndrome (~2014) Testosterone insufficiency (~2015) Type 2 diabetes mellitus without complications UTI (urinary tract infection) Vertigo Surgical History Surgical History H/O cystosco
[2023-06-26] MEDS: ceFAZolin 3 GM/D5W 100 ML 100 ML IVPB (10:11)
[2023-06-26] MEDS: BUPivacaine HCL 0.5% 10 ML AMP INFILTRATE (10:42)
[2023-06-26 12:33] LABS: Glucose Point of Care 112 mg/dl (65-105)
--- NOTE | 2023-06-26 12:34 | P.OP_ITS ---
Procedure Note - Detailed Date of Procedure 06/26/23 Pre-op Diagnosis right Osteochondral Defect Lesion, pain,Tibial exostosis Post-op Diagnosis Same Procedure Performed right ankle arthroscopy with microfracture osteochondral defect extensive debridement, excision tibial exostosis. Surgeon Deandre Box MD Human Resources Compensation Analyst 1St engineer assistant Anesthesia General Indications 67-year-old gentleman with right ankle pain. X-ray and MRI demonstrate medial talar osteochondral defect with fragmentation. Failed conservative treatment brace, injection, therapy. Presents for operative treatment. Findings Right ankle 2 x 1 cm osteochondral lesion medial talar dome with large medial chondral flap. Grade 2 degenerative changes medial gutter. Lateral talar dome intact. Extensive anterior synovitis. Large anteromedial tibial exostosis. Description of Procedure Patient identified in the preoperative holding. Informed consent given. Operative extremity marked. Patient received intravenous antibiotics. Patient brought to the operating room where underwent general anesthetic by anesthesia team. Positioned supine on operating room table. Time-out performed confirming the patient, site of the surgery and the plan. Lower extremity prepped and draped usual sterile surgical fashion using a ChloraPrep skin solution from the knee to the toes. Operative Leg placed into a posterior thigh rebollar with the hip and knee flexed. A noninvasive ankle distractor was applied and distraction was placed across the ankle. Anatomic landmarks were mapped out on the skin. Standard anteromedial camera portal was established 1st with an 18 gauge needle for positioning followed by an 11 blade knife for skin and blunt penetration of the soft tissue and capsule. Camera and inflow were started. The ankle joint was inspected. Above findings noted in the ankle joint. Anterolateral working portal was then established again using an 18 gauge needle followed by an 11 blade knife for the skin and blunt penetration of the soft tissue and capsule. 2.7 mm shaver was introduced and debridement of the ankle joint was performed including the medial and lateral gutters and the anterior hypertrophic synovium. Any loose or unstable cartilage was debrided. Arthroscopic Wand was introduced to control bleeding. The curette was then used to remove the loose cartilage portion of the osteochondral lesion. Shaver was used to debride the remaining rim of cartilage. Chondral picks were then used to penetrate the subchondral bone surface. Good bleeding bone was noted. Large anteromedial tibial exostosis was debrided anteriorly with a shaver. 2.7 mm bur then used to resect the exostosis. The remaining bone was smoothed with a shaver. 100 cc of fluid was irrigated through the ankle and suctioned out. .25% Marcaine, plain was used for anesthetic. Sterile dressing applied. The patient was then woken from anesthesia, extubated and taken to the recovery room in stable condition. All sponge, needle, instrument counts were correct at the end of the case. Estimated Blood Loss 5 Tourniquet Time Total Tourniquet Time: 0 Drains No Packing No Pathology None sent Complications None Condition Stable Disposition PACU [facility] Billing Surgery - Charge Forward: Surgery Billing ([id number], [id number])
== END 2023-06-26 13:53 | disposition home or self-care (01) ==
PROVIDERS: PCP Family Medicine; Visit Provider Orthopaedic Surgery
PROC: (CPT 29898; principal; 2023-06-26 10:30)
DX: M94.8X7 Other specified disorders of cartilage, ankle and foot (principal); M89.9 Disorder of bone, unspecified; M65.871 Other synovitis and tenosynovitis, right ankle and foot; I10 Essential (primary) hypertension; E11.9 Type 2 diabetes mellitus without complications; E78.49 Other hyperlipidemia; G47.33 Obstructive sleep apnea (adult) (pediatric); J44.9 Chronic obstructive pulmonary disease, unspecified; G25.81 Restless legs syndrome; E66.01 Morbid (severe) obesity due to excess calories; Z68.41 Body mass index [BMI] 40.0-44.9, adult; Z79.84 Long term (current) use of oral hypoglycemic drugs; Z79.51 Long term (current) use of inhaled steroids; Z79.82 Long term (current) use of aspirin; Z79.891 Long term (current) use of opiate analgesic; Z98.1 Arthrodesis status; Z95.5 Presence of coronary angioplasty implant and graft; Z86.010 Personal history of colon polyps; Z85.828 Personal history of other malignant neoplasm of skin; Z86.79 Personal history of other diseases of the circulatory system; Z80.0 Family history of malignant neoplasm of digestive organs; Z82.49 Family history of ischemic heart disease and other diseases of the circulatory system
CPT/HCPCS: 29898; 29891; 36415; 80048; 82948; A9270; J0690; J1100; J1170; J1885; J2250; J2405; J2704; J3010; J7120

== ENCOUNTER 2023-07-11 11:03 | Outpatient (CLI) | payer MEDICARE, SELFPAY ==
[2023-07-11 13:04] LABS: Erythrocyte Sedimentation Rate 20 mm/hr (0-20)
[2023-07-11 13:07] LABS: CRP < 0.5 mg/dL (<1.0); Creatine Kinase 72 U/L (55-170)
[2023-07-15 00:10] LABS: Aldolase 5.3 U/L (<=8.1)
[2023-07-17 15:06] LABS: ANCA Screen Negative (Negative)
== END 2023-07-11 11:04 | disposition home or self-care (01) ==
PROVIDERS: PCP Family Medicine; Visit Provider Internal Medicine Pulmonary Disease
DX: J98.4 Other disorders of lung (principal); R91.1 Solitary pulmonary nodule
CPT/HCPCS: 36415; 82085; 82550; 85652; 86036; 86140

== ENCOUNTER 2023-08-06 15:36 | Outpatient (CLI) | payer MEDICARE, SELFPAY | END 2023-08-06 15:37 | disposition home or self-care (01) | LOC: ANHGOSHLAB 15:37 | PROVIDERS: PCP Family Medicine; Visit Provider Internal Medicine Pulmonary Disease | DX: J84.9 Interstitial pulmonary disease, unspecified (principal) | CPT/HCPCS: 36415; 86235 ==

== ENCOUNTER 2023-09-17 09:08 | Outpatient (CLI) | payer MEDICARE, SELFPAY ==
[2023-09-17 19:16] LABS: Basophils Absolute Auto 0.1 K/mm3 (0.0-0.1); Basophils Percent Auto 1.4 % (0.2-1.2); Eosinophils Absolute Auto 0.4 K/mm3 (0-0.3); Hematocrit 38.3 % (42.0-52.0); Hemoglobin 12.2 g/dL (14.0-18.0); Immature Granulocyte Absolute 0.02 K/mm3 (0.00-0.031); Immature Granulocyte Percent A 0.3 % (0-0.5); Lymphocytes Absolute Auto 1.93 K/mm3 (0.9-3.2); Lymphocytes Percent Auto 29.6 % (18.3-44.2); Mean Corpuscular HGB Conc 31.9 g/dl (32-36); Mean Corpuscular Hemoglobin 29.1 pg (26-34); Mean Corpuscular Volume 91.4 fl (80-100); Mean Platelet Volume 10.2 fl (7.4-10.4); Monocytes Absolute Auto 0.7 K/mm3 (0.1-0.6); Monocytes Percent Auto 10.6 % (2.6-8.5); Neutrophils Absolute Auto 3.4 K/mm3 (1.3-6.7); Neutrophils Percent Auto 52.1 % (45.5-73.1); Platelet Count Result 271 k/mm3 (150-375); Red Blood Count 4.19 M/mm3 (4.6-6.20); Red Cell Distribution Width 14.2 % (11.5-14.5); White Blood Count 6.5 K/mm3 (4.5-10.0)
[2023-09-17 19:55] LABS: Alanine Aminotransferase 64 U/L (6-50); Albumin Level 4.6 g/dL (3.5-5.1); Alkaline Phosphatase 66 U/L (38-126); Anion Gap 10 mmol/L (4-12); Aspartate Amino Transferase 45 U/L (17-59); Bilirubin,Total 0.8 mg/dL (0.2-1.3); Blood Urea Nitrogen 18 mg/dL (9-20); Calcium 9.5 mg/dL (8.4-10.2); Carbon Dioxide 26 mmol/L (22-30); Chloride 102 mmol/L (98-107); Cholesterol 121 mg/dL (0-200); Estimated Glomerular Filt Rate > 60; Glucose 113 mg/dL (65-110); HDL Direct 39 mg/dL; Sodium 138 mmol/L (137-145); Triglycerides 139 mg/dL (<150)
[2023-09-17 20:06] LABS: LDL Cholesterol Direct 68 mg/dL
== END 2023-09-17 09:09 | disposition home or self-care (01) ==
LOC: ANHGOSHLAB 09:09
PROVIDERS: PCP Family Medicine; Visit Provider Nurse Practitioner Family
DX: E03.9 Hypothyroidism, unspecified (principal); E78.5 Hyperlipidemia, unspecified; E11.9 Type 2 diabetes mellitus without complications; E34.9 Endocrine disorder, unspecified; I10 Essential (primary) hypertension
CPT/HCPCS: 36415; 80053; 80061; 83036; 84443; 85025

== ENCOUNTER 2023-10-06 03:37 | Day surgery (SDC) | payer MEDICARE, SELFPAY ==
[2023-09-23 15:37] VITALS: BMI 42.3
--- NOTE | 2023-09-23 16:01 | PC.NURSE ---
Report to the Outpatient Waiting Room, entrance under the green pavilion located off [facility], at time __10:00AM on date __10/06/23 . Planned Procedure Time: _12:00PM . Time changes happen often and if your time is changed the preop area will call you the afternoon before. - You and your visitor will be asked to self-screen and do not enter if you have any COVID symptoms. - A mask is optional within the hospital at this time. Patients may have clear liquids (water, carbonated beverages, clear teas, apple juice) until 3 hours prior to surgery with a maximum of 20 ounces. - No food from midnight until time of surgery - Infants may have breast milk until 4 hours before surgery, infant formula 6 hours prior to surgery. - Children will be allowed to drink immediately following surgery. If applicable, please bring a bottle or sippy cup to assist with drinking. Juice, water, soda, and popsicles are readily available. For infants on formula, please bring formula the day of surgery. Pacifiers are allowed. Take the following medications with a SIP of water the morning of surgery: ____TIOTROPIUM-OLODATEROL INHALER. MAY ALSO USE LEVALBUTEROL INHALER NEEDED DO NOT STOP ANY OF YOUR OTHER PRESCRIPTION MEDICATIONS PRIOR TO SURGERY ?EXCEPT THE FOLLOWING Medications to discontinue per physician ___NONE Date to take last dose Please no make-up, nail italian, hairspray, perfume, deodorant, or body powder the day of surgery. No jewelry (including any body piercings) or valuables the day of surgery, leave them at home. Please take a shower or bath the night before, or the morning of, surgery with an antibacterial soap. Wear comfortable, loose fitting clothing. Children are encouraged to wear pajamas. - Jewelry must be removed prior to entering the operating room. Rings and piercings that are not removed may be cut off. - The hospital will not accept responsibility for valuables. - Please leave all valuables, including medications, at home the day of surgery. If you are going home after surgery, a licensed class a regional drivers must drive you home. - NO public transportation without another adult if you receive anesthesia. - We recommend that an adult stay with you for 24 hours following discharge. - We also recommend that you do not drive, make important decision, drink alcoholic beverages, or take any drugs that were not prescribed by your health care provider for at least 24 hours after your discharge time. For Pediatric surgeries, we recommend two adults accompany the child home. Follow any additional instructions given to you from your surgeon. If you or anyone in your household have experienced Covid symptoms in the past week, please notify your surgeon or the nurse liaison at the phone number below for possible testing. Telephone instructions given to PATIENT and asked if any additional questions and then verbalized understanding. Patient advised to call surgeon office or pre surgery nurse liaison [phone] if any additional questions.
[2023-10-06] VITALS (9 sets, daily range): BP systolic 111–129; BP diastolic 69–77; PULSE 61–75; RESP 12–18; TEMP 36.2; O2SAT 96–100
[2023-10-06 10:35] LABS: Glucose Point of Care 123 mg/dl (65-105)
--- NOTE | 2023-10-06 11:48 | WPDANESEPPF ---
Anes - Initial Pre Proc Eval Procedure: Operation Date: 10/06/23 12:00 Proposed Procedures p Excisional Biopsy Right Axillary Mass - Lissy Montes MD Date/Time: 10/06/23 11:48 Surgeon: Lissy Montes MD Pre Op Diagnosis: Right Axillary Mass 1.5x1.0cm Patient Data Age: 67 Gender: M Height: 1.78 m Weight: 128.9 kg Last Vital Signs Temp 97.2 F L 10/06/23 10:30 Pulse 73 10/06/23 10:30 Resp 14 10/06/23 10:30 BP 129/73 10/06/23 10:30 Pulse Ox 96 10/06/23 10:30 O2 Del Method Room Air 10/06/23 10:30 Allergies Allergy/AdvReac Type Severity Reaction Status Date / Time Tetanus Vaccines and Toxoid Allergy Unknown HIGH Verified 09/23/23 15:33 FEVER, N/V Home Medications Medication Instructions Recorded Confirmed Type chlorthalidone 25 mg tablet 25 mg PO QAM 03/15/19 09/23/23 History metoprolol succinate 50 mg 50 mg PO HS 11/29/19 09/23/23 History tablet,extended release 24 hr sumatriptan succinate 100 mg 100 mg PO DAILY PRN migraine 09/06/22 09/23/23 Rx tablet (Imitrex) headache #30 tabs atorvastatin 40 mg tablet 40 mg PO QHS 03/19/23 09/23/23 History irbesartan 150 mg tablet 150 mg PO QHS 03/19/23 09/23/23 History levalbuterol tartrate 45 1 - 2 inh inhalation Q6H PRN 05/28/23 09/23/23 Rx mcg/actuation aerosol inhaler shortness of breath or wheezing #15 grams aspirin 81 mg capsule 81 mg PO HS 06/12/23 09/23/23 History blood sugar diagnostic (OneTouch #100 ea 07/29/23 09/22/23 Rx Verio test strips) blood-glucose meter (OneTouch #1 ea 07/29/23 09/22/23 Rx Verio Flex Start kit) lancets 33 gauge #100 ea 07/29/23 09/22/23 Rx metformin 1,000 mg tablet 1,000 mg PO QAM 09/23/23 09/23/23 History tiotropium 2.5 mcg-olodaterol 2.5 1 puff inhalation BID 09/23/23 09/23/23 History mcg/actuation mist for inhalation Laboratory Tests 10/06/23 10:32 POC Capillary Glucose 123 H mg/dl (65-105) Patient hx anesthesia problems: none Family hx anesthesia problems: none Results Review: All pre-operative results and documents have been reviewed as part of the pre-operative evaluation. [facility] Past Medical History Medical History Acute otitis media with effusion of left ear Acute sinusitis Acute suppur left otitis media w/spontan rupture of tympanic membrane Allergic rhinitis Avulsion fracture Basal cell carcinoma of skin of unspecified eyelid, including canthus Chest pain at rest Chronic obstructive pulmonary disease, unspecified Chronic pelvic pain in male Coronary artery disease involving comanche heart without angina pectoris CSF rhinorrhea Dizziness Headache History of basal cell carcinoma (BCC) History of colon polyps Hypertension Labyrinthitis, left ear Left acute otitis media Left-sided weakness Mastoiditis of left side Migraine with aura, not intractable, without status migrainosus (~2014) Nasal congestion Nasal septal deviation CALI (obstructive sleep apnea) (~2008) Osteochondral talar dome lesion Other hyperlipidemia (~2008) Otitis media, left Otorrhea, left ear Primary osteoarthritis involving multiple joints (~2008) Restless legs syndrome (~2014) Testosterone insufficiency (~2015) Type 2 diabetes mellitus without complications UTI (urinary tract infection) Vertigo Surgical History Surgical History H/O cystoscopy (~2016) 2017 - urethral dilatation H/O sinus surgery (~03/25/22) History of angioplasty (~04/2020) 04/2020 History of coronary artery stent placement (~03/2016) 03/2016 History of dilation of urethra History of lumbar laminectomy for spinal cord decompression (~03/2022) History of removal of pigmented skin lesion (~2016) 2017 - Mainly on the face Family History Family History Mother Carcinoma of colon, Onset Age: 68 Father Family h
[2023-10-06] MEDS: LACTATED RINGERS 1,000 ML 30 ML IV CONT ×2 (12:00→13:59)
--- NOTE | 2023-10-06 12:04 | WPDHPUPDATE1 ---
History and Physical Update Update Date/Time: 10/06/23 12:04 History and Physical has been reviewed, including an updated exam of the patient. There are NO changes in the patient's condition. Risks, benefits, and alternatives have been discussed and questions answered. Patient agrees to proceed with procedure.
[2023-10-06] MEDS: BUPIVACAINE/EPINEPHRINE 0.5% 10 ML VIAL 20 ML INFILTRATE (12:09)
[2023-10-06] MEDS: ceFAZolin 3 GM/D5W 100 ML 100 ML IVPB (12:09)
--- NOTE | 2023-10-06 12:58 | W.PM.PROC2 ---
Procedure Note - Detailed Date of Procedure 10/06/23 Pre-op Diagnosis Right Axillary Mass Post-op Diagnosis Same Procedure Performed excisional biopsy right axillary mass measuring 3 x 2 cm Surgeon Lissy Montes MD Anesthesia General and Local Indications 67-year-old male presenting with a right axillary mass that had been slowly enlarging in size. Patient reports the area is tender to palpation and pressure. Findings Subdermal right axillary mass most consistent with epidermoid cyst Description of Procedure The patient was taken to the operating room and placed in the supine position. After adequate induction of general anesthesia, the patient was prepped and draped in the normal sterile fashion. A time-out was then done to verify the patient's identity, as well as the procedure being performed. I began by localizing the area and around this hard mass in the right axilla. I then made a elliptical incision to encompass the entirety of the mass. This was carried down through the dermis into the subcutaneous tissue. The mass was located within the subcutaneous tissue and most consistent with an epidermoid cyst. I was able to excise the mass in full including the overlying dermis. The mass was noted to measure 3 x 2 cm. The mass will be sent to pathology for further review. No other pathology was noted within the cavity. Hemostasis was noted within the cavity. The subcutaneous tissue was closed with 3-0 Vicryl suture. The skin was closed with 4-0 Monocryl subcuticular suture. Dermabond was placed on the wound. The patient tolerated the procedure well and was extubated postoperatively. He will be transferred to the recovery room in stable condition. Estimated Blood Loss 5 Pathology Yes Complications No immediate complications Condition Stable Disposition PACU [facility] Billing Surgery - Charge Forward: Surgery Billing
[2023-10-06 13:02] LABS: Glucose Point of Care 103 mg/dl (65-105)
--- NOTE | 2023-10-06 13:11 | SUR.PHASEI ---
1310: Simple mask removed.
[2023-10-06] MEDS: fentaNYL CITRATE INJ (*CRX) 100 MCG/2 ML VIAL 25 MCG IV PUSH ×7 (13:18→14:30)
[2023-10-06] MEDS: oxyCODONE HCL (*CRX) 5 MG TAB IR PO ×2 (14:07→14:10)
== END 2023-10-06 14:54 | disposition home or self-care (01) ==
PROVIDERS: PCP Family Medicine; Visit Provider Surgery
PROC: (CPT 11406; principal; 2023-10-06 12:00)
DX: L72.0 Epidermal cyst (principal); J44.9 Chronic obstructive pulmonary disease, unspecified; I25.10 Atherosclerotic heart disease of native coronary artery without angina pectoris; I10 Essential (primary) hypertension; G47.33 Obstructive sleep apnea (adult) (pediatric); E78.49 Other hyperlipidemia; E11.9 Type 2 diabetes mellitus without complications; G25.81 Restless legs syndrome; E66.01 Morbid (severe) obesity due to excess calories; Z68.41 Body mass index [BMI] 40.0-44.9, adult; Z79.82 Long term (current) use of aspirin; Z79.84 Long term (current) use of oral hypoglycemic drugs; Z79.51 Long term (current) use of inhaled steroids
CPT/HCPCS: 11406; 12032; 82948; 88304; A9270; J0690; J2250; J2704; J3010; J7120

== ENCOUNTER 2023-10-10 08:49 | Outpatient (CLI) | payer MEDICARE, SELFPAY ==
--- NOTE | ~2023-10-10 | CT_ITS ---
EXAMINATION: CT chest high resolution [facility] DATE: 10/10/2023 10:01 INDICATION: Interstitial pulmonary disease. TECHNIQUE: Computed tomography (CT) of the chest was performed without intravenous contrast. The dose -length product was 873.23 mGy-cm. Automated exposure control and iterative reconstruction technique were employed. COMPARISON: CT dated 04/10/2023 FINDINGS: Decreased lung volumes. Mild elevation of the left diaphragm. There is interlobular septal thickening with areas of bronchiectasis, consistent with chronic interstitial lung disease. No focal consolidation. No significant effusion or pneumothorax. No suspicious pulmonary nodules or masses. No endobronchial lesions. Mild thoracic kyphosis. IMPRESSION: 1. Stable mild chronic interstitial lung disease in a pattern consistent with nonspecific interstitia l pneumonia versus usual interstitial pneumonia. Reviewed, dictated and finalized at location B. IMPRESSION: 1. Stable mild chronic interstitial lung disease in a pattern consistent with n onspecific interstitial pneumonia versus usual interstitial pneumonia.
--- NOTE | 2023-10-11 09:36 | WPDPFTINT ---
PFT Procedure Performed PFT Procedure Performed Spirometry with Pre/Post Bronchodilator Plethysmography (Lung Vol) Diffusing Cap (DLCO) Flow Vol Loop PFT Interpretation This is a pulmonary function test with pre and post-bronchodilator spirometry, plethysmography and diffusing capacity. The test was performed and results interpreted in accordance with the 2019 and 2005 ATS/ERS Task Force guidelines respectively using the Global Lung Function Initiative-2012 reference equations. Patient demonstrated good effort and cooperation. Reproducibility criteria were met. The quality of the pre bronchodilator spirometry maneuver was Grade B and post bronchodilator spirometry maneuver was Grade B. Findings: Spirometry: The contour the inspiratory and expiratory flow tracing are normal. The pre bronchodilator FVC is 2.85 L, 66% predicted. The pre bronchodilator FEV1 is 2.11 L, 65% predicted. The pre bronchodilator FEV1: FVC ratio 74%. The post bronchodilator FVC is 2.48 L, representing a 13% decrease. The post bronchodilator FEV1 is 2.03 L, representing a 4% decrease. The post bronchodilator FEV1: FVC ratio is 82%. Plethysmography: The total lung capacity is 4.56 L, 65% predicted. The functional residual capacity is 2.13 L, 57% predicted. The residual volume is 1.71 L, 70% predicted. Diffusing capacity: The diffusing capacity unadjusted for hemoglobin and carboxyhemoglobin is 17.6, 67% predicted. The diffusing capacity adjusted for alveolar volume is 4.45, 112% predicted. In comparison to previous pulmonary function testing on 05/12/2023 the post bronchodilator FVC is unchanged from 2.70 L to 2.48 L. The post bronchodilator FEV1 is unchanged from 2.06 L to 2.03 L. The total lung capacity is unchanged from 4.97 L to 4.56 L. The functional residual capacity is increased from 1.48 L to 2.13 L. The residual volume is increased from 1.18 L to 1.71 L. The diffusing capacity unadjusted for hemoglobin and carboxyhemoglobin is unchanged from 17.3 to 17.6. The diffusing capacity adjusted for alveolar volume is decreased from 5.16 to 4.45. Impression: There is a moderate restrictive ventilatory abnormality. The spirometry is normal without evidence of an obstructive abnormality. There is no significant improvement after inhaling a single dose of albuterol. The diffusing capacity unadjusted for hemoglobin and carboxyhemoglobin is mildly decreased and normalizes when adjusted for alveolar volume. In comparison to previous pulmonary function testing on 05/12/2023 there has been a greater than anticipated time dependent increase in the functional residual capacity and residual volume. There has been a greater than anticipated time dependent decrease in the diffusing capacity adjusted for alveolar volume with no significant change in the FVC, FEV1, total lung capacity and diffusing capacity unadjusted for hemoglobin and carboxyhemoglobin. Clinical correlation is recommended.
== END 2023-10-10 08:50 | disposition home or self-care (01) ==
PROVIDERS: PCP Family Medicine; Visit Provider Internal Medicine Pulmonary Disease
DX: J84.9 Interstitial pulmonary disease, unspecified (principal); R94.2 Abnormal results of pulmonary function studies
CPT/HCPCS: 71250; 94060; 94726; 94729

== ENCOUNTER 2024-03-19 11:49 | Outpatient (CLI) | payer MEDICARE, SELFPAY ==
--- NOTE | ~2024-03-19 | US_ITS ---
EXAMINATION: US venous doppler LE RT DATE: 03/19/2024 12:24 INDICATION: Right lower limb pain and swelling. TECHNIQUE: Grayscale ultrasound images without and with compression and Doppler ultrasound images of the right lower extremity veins were obtained. COMPARISON: None. FINDINGS: The visualized portions of right common femoral vein, profunda (deep) femoral vein, femoral vein, pop liteal vein, peroneal veins, posterior tibial veins, and greater saphenous vein outflow are patent. IMPRESSION: 1. No deep venous thrombosis. Reviewed, dictated and finalized at location A. OR QUALITY CONTROL TECHNICIAN
== END 2024-03-19 11:50 | disposition home or self-care (01) ==
LOC: ANHIMG 11:50
PROVIDERS: PCP Family Medicine; Visit Provider Nurse Practitioner Family
DX: R09.89 Other specified symptoms and signs involving the circulatory and respiratory systems (principal); R22.31 Localized swelling, mass and lump, right upper limb
CPT/HCPCS: 93971

== ENCOUNTER 2024-03-24 08:16 | Outpatient (CLI) | payer MEDICARE, SELFPAY ==
[2024-03-24 14:13] LABS: Basophils Absolute Auto 0.1 K/mm3 (0.0-0.1); Basophils Percent Auto 1.2 % (0.2-1.2); Eosinophils Absolute Auto 0.4 K/mm3 (0-0.3); Eosinophils Percent Auto 6.4 % (0-4.4); Hematocrit 38.4 % (42.0-52.0); Hemoglobin 12.3 g/dL (14.0-18.0); Immature Granulocyte Absolute 0.01 K/mm3 (0.00-0.031); Immature Granulocyte Percent A 0.1 % (0-0.5); Lymphocytes Absolute Auto 2.12 K/mm3 (0.9-3.2); Lymphocytes Percent Auto 31.4 % (18.3-44.2); Mean Corpuscular Hemoglobin 29.6 pg (26-34); Mean Corpuscular Volume 92.5 fl (80-100); Mean Platelet Volume 10.4 fl (7.4-10.4); Monocytes Absolute Auto 0.8 K/mm3 (0.1-0.6); Monocytes Percent Auto 12.3 % (2.6-8.5); Neutrophils Absolute Auto 3.3 K/mm3 (1.3-6.7); Neutrophils Percent Auto 48.6 % (45.5-73.1); Platelet Count Result 255 k/mm3 (150-375); Red Blood Count 4.15 M/mm3 (4.6-6.20); Red Cell Distribution Width 14.2 % (11.5-14.5); White Blood Count 6.8 K/mm3 (4.5-10.0)
[2024-03-24 14:34] LABS: Creatinine Urine 120.3 mg/dL
[2024-03-24 14:49] LABS: MALB Creatinine Ratio < 5.0 mg/g (0-30); Microalbumin Urine Random < 6.0 mg/L (0-16.7)
[2024-03-24 16:52] LABS: Vitamin D 25 Hydroxy 46.3 ng/mL
[2024-03-24 18:45] LABS: Alanine Aminotransferase 38 U/L (6-50); Albumin Level 4.6 g/dL (3.5-5.1); Alkaline Phosphatase 54 U/L (38-126); Anion Gap 9 mmol/L (4-12); Aspartate Amino Transferase 41 U/L (17-59); Bilirubin,Total 0.4 mg/dL (0.2-1.3); Blood Urea Nitrogen 18 mg/dL (9-20); Calcium 9.8 mg/dL (8.4-10.2); Carbon Dioxide 27 mmol/L (22-30); Chloride 102 mmol/L (98-107); Cholesterol 119 mg/dL (0-200); Estimated Glomerular Filt Rate > 60; Glucose 92 mg/dL (65-110); HDL Direct 41 mg/dL; Potassium 4.2 mmol/L (3.4-5.0); Sodium 138 mmol/L (137-145); Triglycerides 122 mg/dL (<150)
[2024-03-24 18:56] LABS: LDL Cholesterol Direct 49 mg/dL
[2024-03-24 19:16] LABS: Prostate Specific Antigen 1.5 ng/mL (< OR = 4.0)
[2024-03-24 21:47] LABS: Hemoglobin A1C 6.2 % (<5.7)
== END 2024-03-24 08:17 | disposition home or self-care (01) ==
LOC: ANHGOSHLAB 08:17
PROVIDERS: PCP Family Medicine; Visit Provider Family Medicine
DX: E55.9 Vitamin D deficiency, unspecified (principal); I25.10 Atherosclerotic heart disease of native coronary artery without angina pectoris; Z12.5 Encounter for screening for malignant neoplasm of prostate; Z00.00 Encounter for general adult medical examination without abnormal findings; E11.9 Type 2 diabetes mellitus without complications; E78.5 Hyperlipidemia, unspecified; E53.8 Deficiency of other specified B group vitamins; I10 Essential (primary) hypertension
CPT/HCPCS: 36415; 80053; 80061; 82043; 82306; 82607; 83036; 84153; 84443; 85025; G0103

== ENCOUNTER 2024-04-20 12:15 | Outpatient (CLI) | payer MEDICARE, SELFPAY ==
--- NOTE | ~2024-04-20 | CT_ITS ---
CT Scan of the Chest without Contrast: Clinical Indication: Interstitial pulmonary disease Technique: Contiguous sections were acquired throughout the chest without intravenous contrast. Dose reduction technique was used on this scan by utilizing automated exposure control and iterative recon struction technique. The dose-length product (DLP) was 708.67 mGy-cm. COMPARISON: 10/10/2023 Findings: There is no evidence of any significant mediastinal, hilar or axillary lymphadenopathy. Coronary jun ry calcifications are present. There is no evidence of pleural or pericardial effusion. Mild bibasilar interstitial disease is stable from prior exam. Images through the upper abdomen reveal no abnormalities. Impression: Mild bibasilar interstitial disease, stable from prior exam. Reviewed, dictated and finalized at location . MATIC TOE LASTER Impression: Mild bibasilar interstitial disease, stable from prior exam.
== END 2024-04-20 12:16 | disposition home or self-care (01) ==
PROVIDERS: PCP Family Medicine; Visit Provider Internal Medicine Pulmonary Disease
DX: J84.9 Interstitial pulmonary disease, unspecified (principal)
CPT/HCPCS: 71250

== ENCOUNTER 2024-04-30 14:39 | Outpatient (CLI) | payer MEDICARE, SELFPAY ==
--- NOTE | 2024-04-30 16:47 | WPDPFTINT ---
PFT Procedure Performed PFT Procedure Performed Spirometry with Pre/Post Bronchodilator Plethysmography (Lung Vol) Diffusing Cap (DLCO) Flow Vol Loop PFT Interpretation This is a pulmonary function test with pre and post-bronchodilator spirometry, plethysmography and diffusing capacity. The test was performed and results interpreted in accordance with the 2019 and 2005 ATS/ERS Task Force guidelines respectively using the Global Lung Function Initiative-2012 reference equations. Patient demonstrated good effort and cooperation. Reproducibility criteria were met. The quality of the pre bronchodilator spirometry maneuver was Grade A and post bronchodilator spirometry maneuver was Grade A. Findings: Spirometry: The contour the inspiratory and expiratory flow tracing are normal. The pre bronchodilator FVC is 2.51 L, 59% predicted. The pre bronchodilator FEV1 is 2.11 L, 65% predicted. The pre bronchodilator FEV1: FVC ratio is 84%. The post bronchodilator FVC is 2.66 L, representing a 6% increase. The post bronchodilator FEV1 is 2.15 L, representing a 2% increase. The post bronchodilator FEV1: FVC ratio is 81%. Plethysmography: The total lung capacity is 3.70 L, 52% predicted. The functional residual capacity is 1.76 L, 47% predicted. The residual volume is 0.72 L, 29% predicted. Diffusing capacity: The diffusing capacity unadjusted for hemoglobin and carboxyhemoglobin is 17.1, 65% predicted. The diffusing capacity adjusted for alveolar volume is 4.32, 110% predicted. In comparison to previous pulmonary function testing on 05/12/2023 the post bronchodilator FVC is unchanged from 2.70 L to 2.66 L. The post bronchodilator FEV1 is unchanged from 2.06 L to 2.15 L. The total lung capacity is decreased from 4.97 L to 3.70 L. The functional residual capacity is increased from 1.48 L to 1.76 L. The residual volume is decreased from 1.18 L to 0.72 L. The diffusing capacity unadjusted for hemoglobin and carboxyhemoglobin is unchanged from 17.3 to 17.1. The diffusing capacity adjusted for alveolar volume is decreased from 5.16 to 4.32. Impression: There is a moderate restrictive ventilatory abnormality. The spirometry is normal without evidence of an obstructive abnormality. There is no significant improvement after inhaling a single dose of albuterol. The diffusing capacity unadjusted for hemoglobin and carboxyhemoglobin is mildly decreased and normalizes when adjusted for alveolar volume. In comparison to previous pulmonary function testing on 05/12/2023, there has been a greater than anticipated time dependent decrease in the total lung capacity, residual volume, and diffusing capacity adjusted for alveolar volume. There has been a greater than anticipated time dependent increase in the functional residual capacity with no significant change in the FVC, FEV1, or diffusing capacity unadjusted for hemoglobin and carboxyhemoglobin. Clinical correlation is recommended.
== END 2024-04-30 14:40 | disposition home or self-care (01) ==
LOC: ANHPFT 14:40
PROVIDERS: PCP Family Medicine; Visit Provider Internal Medicine Pulmonary Disease
DX: J84.9 Interstitial pulmonary disease, unspecified (principal); R94.2 Abnormal results of pulmonary function studies
CPT/HCPCS: 94060; 94726; 94729

== ENCOUNTER 2024-08-25 14:21 | Outpatient (CLI) | payer MEDICARE, SELFPAY ==
--- NOTE | ~2024-08-25 | XR_ITS ---
XR knee RT min 4V Ordering provider: Madison Canseco MD History: . M25.561 - Pain in right knee . Comparison: None. FINDINGS: BONES: Lucency in the lateral tibial plateau is noted which may be summation shadow but a fracture ca nnot be excluded. CT evaluation advised. Otherwise, No acute fracture or dislocation. JOINT SPACES: Slight narrowing of the medial compartment. SOFT TISSUES: Normal. IMPRESSION: Lucency seen over the lateral tibial plateau which may be summation shadow. Fracture cannot be exclud ed. CT evaluation advised. Otherwise, No acute osseous abnormality right knee. Mild osteoarthritic changes. Reviewed, dictated and finalized at location A. IMPRESSION: Lucency seen over the lateral tibial plateau which may be summation shadow. Fra cture cannot be excluded. CT evaluation advised. Otherwise, No acute osseous ab normality right knee. Mild osteoarthritic changes.
== END 2024-08-25 14:22 | disposition home or self-care (01) ==
PROVIDERS: PCP Family Medicine; Visit Provider Family Medicine
DX: M17.11 Unilateral primary osteoarthritis, right knee (principal)
CPT/HCPCS: 73564

== ENCOUNTER 2024-08-30 08:11 | Outpatient (CLI) | payer MEDICARE, SELFPAY ==
--- NOTE | ~2024-08-30 | CT_ITS ---
CT OF right knee EXAMINATION: CT knee RT wo con DATE: 08/30/2024 08:28 INDICATION: Pain right knee, fall March 2024 TECHNIQUE: Computed tomography (CT) of the right knee was performed without intravenous contrast. Aut omated exposure control and iterative reconstruction technique were employed. The dose-length product was 359.81 mGy-cm. COMPARISON: X-ray right knee 08/25/2024 FINDINGS: Limitations: None Bones: The included osseous structures are within normal limits. There are no erosive or destructive bony lesions. Tricompartmental osteoarthritic change, moderate in the medial compartment. Soft Tissues:The soft tissues appear within normal limits. Vascular calcification. No evidence of mas s or fluid collection. Small volume joint fluid. The ACL is not well visualized. The PCL and lateral collateral units appear to be intact. Extensor mechanism is intact. Undulating patellar tendon may be due to hyperextension or laxity. Fluid: Small volume joint fluid. IMPRESSION: No acute osseous finding in the right knee. Possible ACL tear of indeterminate age. Reviewed, dictated and finalized at location K.
== END 2024-08-30 08:12 | disposition home or self-care (01) ==
LOC: GOSHIMG 08:12
PROVIDERS: PCP Orthopaedic Surgery; Visit Provider Family Medicine
DX: M25.561 Pain in right knee (principal); G89.29 Other chronic pain
CPT/HCPCS: 73700

== ENCOUNTER 2024-09-21 09:17 | Outpatient (CLI) | payer MEDICARE, SELFPAY ==
--- OUTSIDE RECORDS SUMMARY | 2024-09-21 09:28 | XMS_ITS | Referral Summary ---
Author Organization [facility] [address] Address [address] [place] [address] Care Team Providers Care Special Order Jeweler Name Role Phone Meghan Lua MD Unavailable [phone] Aneta Canseco MD Primary Care Provider Encounters Date Type Department Care Team Description 07/06/2024 8:15 AM TAILINGS MAN Office Visit [facility] Cardiology at [address] [place] [address] Nathan Moses MD Coronary artery disease involving [place] coronary artery of [place] heart without angina pectoris (Primary Dx); History of coronary artery stent placement from Last 3 Months Allergies Active Allergy Reactions Criticality Noted Date Comments Tetanus Toxoid, Adsorbed Nausea And Vomi ting,Other (See comments) Low 03/07/2016 High fever Medications aspirin (ASPIRIN LOW DOSE) 81 mg tablet take 1 Tablet (81MG) by oral route every day 0 3 Active metFORMIN (GLUCOPHAGE) 1,000 mg tablet 2 Active nitroglycerin (NITROSTAT) 0.[address] 1 TABLET (0.4 MG TOTAL) UNDER THE TONGUE EVERY 5 (FIVE) MINUTES NEEDED FOR CHEST PAIN 25 tablet 11 3 Active levalbuterol (XOPENEX HFA) 45 mcg/actuation inhaler INHALE 1 TO 2 PUFFS BY MOUTH EVERY 6 HOURS NEEDED FOR SHORTNESS OF BREATH OR WHEEZING 4 Active atorvastatin (LIPITOR) 40 mg tablet Take 1 tablet (40 mg total) by mouth daily 90 tablet 3 4 Active chlorthalidone (HYGROTON) 25 mg tabletIndicatio ns:History of coronary artery stent placement Take 1 tablet (25 mg total) by mouth daily 90 tablet 3 4 Active irbesartan (AVAPRO) 150 mg tablet Take 1 tablet (150 mg total) by mouth nightly 90 tablet 3 4 Active Incruse Ellipta 62.5 mcg/actuation blister with device Inhale 1 puff (62.5 mcg total) daily 5 Active azithromycin (ZITHROMAX) 250 mg tablet Take by mouth daily Active albuterol 2.5 mg /3 mL (0.083 %) nebulizer solution Take 3 mL (2.5 mg total) by nebulization every 6 (six) hours as needed for wheezing Active predniSONE (DELTASONE) 50 mg tablet Take 1 tablet (50 mg) by mouth daily Active SUMAtriptan (IMITREX) 100 mg tabletIndicatio ns:Migraine Take 1 tablet (100 mg total) by mouth once as needed for migraine Active metoprolol XL (TOPROL-XL) 50 mg extended release tablet Take 1 tablet (50 mg total) by mouth daily 100 tablet 3 5 Active Active Problems Problem Noted Date Diagnosed Date Restless leg syndrome 02/17/2020 Obstructive sleep apnea 01/18/2019 Hypersomnia 01/18/2019 Periodic limb movement disorder 01/18/2019 HTN (hypertension) 04/14/2018 History of fainting spells of unknown cause 07/2017 CAD (coronary artery disease) 12/17/2016 History of coronary artery stent placement 12/17 Morbid obesity with BMI of 40.0-44.9, adult 12/03 Social History Tobacco Use Types Packs/Day Years Used Date Smoking Tobacco: Never Smokeless Tobacco: Never Tobacco Cessation:Counseling Given: Not Answered Alcohol Use Standard Drinks/Week Comments No 0 (1 standard drink = 0.6 oz pur e alcohol) Sex and Gender Information Value Date Recorded Sex Assigned at Not on file Legal Sex Male 2:36 AM TAILINGS MAN Gender Identity Not on file Sexual Orientation Straight 03/05/2021 10 :12 AM CDT Last Filed Vital Signs Vital Sign Reading Time Taken Comments Blood Pressure 116/70 07/06/2024 8:06 AM TAILINGS MAN Pulse 81 07/06/2024 8:06 AM TAILINGS MAN Temperature 36.7 C (98.1 F) 03/22/2024 2:09 PM TAILINGS MAN Respiratory Rate 16 12/24/2023 8:00 AM CDT Oxygen Saturation 93% 07/06/2024 8:06 AM TAILINGS MAN Inhaled Oxygen Concentration - - Weight 128.8 kg (284 lb) 07/06/2024 8:06 AM TAILINGS MAN Height 177.8 cm (5' 10 ) 07/06/2024 8:06 AM TAILINGS MAN Body Mass Index 40.75 07/06/2024 8:06 AM TAILINGS MAN Plan of Treatment Not on file Insurance [facility] CON UHC MEDICARE ADVANTAGE AETNA MEDICARE GOLD Advance Directives For more information, please contact: [phone] * Full Code (Latest Code Status on File) Date Activated Date Inactivated Comments 04/14/2018 9:38 AM 04/18/2018 6:09 PM Care Teams Special Order Jeweler Relationship Specialty Start Date End Date Aneta Canseco MD PCP - General Family Practice 05/04/20 Meghan Lua MD Consulting Physician Critical Care Med 06/25/18
--- OUTSIDE RECORDS SUMMARY | 2024-09-21 09:28 | XMS_ITS | Clinical Summary ---
Author Organization [facility] Address [address] [place] [address] Care Team Providers Care Retail Worker Name Role Phone Unavailable Primary Care Provider Unavailabl e Social History Tobacco Use Types Packs/Day Years Used Date Smoking Tobacco: Never Assessed Sex and Gender Information Value Date Recorded Sex Assigned at Not on file Legal Sex Male 6:49 PM CDT Gender Identity Not on file Sexual Orientation Not on file Plan of Treatment Health Maintenance Due Date Last Done Comments Colorectal Cancer Screening Colonoscopy (10 Years) 1953 Hepatitis C 10/15/1971 DTaP, Tdap and Td Vaccines ( 1 - Tdap) 1972 Zoster Vaccines (1 of 2) 10/15/2003 COVID-19 Vaccine (4 - 2023-2 5 season) 2024 03/09/2021, 07/24/2020, 06/21/2020 RSV Immunization or 60+ Years (1 - 1-dose 75+ series) 2028 Pneumococcal Vaccine: 50+ Years Completed 02/09/2021, 02/26/2020, 02/04/2019 Meningococcal B Vaccine Aged Out No l onger eligible based on patient's age to complete this topic Meningococcal Vaccine Aged Out No johanna mauri eligible based on patient's age to complete this topic RSV Immunizations Under 20 Months Aged Out No longer eligible b ased on patient's age to complete this topic
--- OUTSIDE RECORDS SUMMARY | 2024-09-21 09:28 | XMS_ITS | Clinical Summary ---
Author Organization [facility] [address] Address [address] [place] [address] Care Team Providers Care Yarn Washer Name Role Phone Meghan Lua MD Unavailable [phone] Aneta Canseco MD Primary Care Provider Allergies Active Allergy Reactions Criticality Noted Date [...] obesity with BMI of 40.0-44.9, adult 12/03 Encounters Date Type Department Care Team Description 07/06/2024 8:15 AM REFRACTIVE SURGEON Office Visit [facility] Cardiology at [address] [place] [address] Nathan Moses MD Coronary artery disease involving [place] coronary artery of [place] heart without angina pectoris (Primary Dx); History of coronary artery stent placement from Last 3 Months Surgical History Surgery Date Site/Laterality Comments POLYPECTOMY Polypectomy OTHER SURGICAL HISTORY sphincterotomy COLONOSCOPY ANGIOPLASTY 03/11/2012 SPINE SURGERY March 18, 2022 Mi croscopic Spinal Surgery to repair nerve cord compression and bulging disk at L-3/L-4. Medical History Medical History Date Comments Hypertension Hypertension NM (myocardial infarction) (HCC) Arthritis Brain concussion 04/20/2017 Migraines 1970 Seizures (HCC) 04/2017 Sleep apnea 2015 Diabetes mellitus (HCC) Mixed conductive and sensori neural hearing loss Hearing loss due to recent ear infection and rupture of the ear drum. Hospitalized for IV antibiotics, and tube placement. Suffering from severe tinnitus and substantial hearing loss. Cataract 12/04/23 Family History Medical History Relation Name Comments Cancer Brother 1 Sotero Lauren Stroke Brother 2 Sage Lauren Stroke Brother 3 Sage Lauren Early Father Tony Lauren Heart attack Father Tony Lauren Myocardial In farction; Cause of : Myocardial Infarction Hypertension Father Tony Lauren Cancer Mother Soledad Lauren Relation Name Status Comments Brother 1 Sotero Lauren Brother 2 Sage Lauren Brother 3 Sage Lauren Alive Father Tony Lauren (Age 56) Mother Soledad Lauren Alive Social History Tobacco Use Types Packs/Day Years Used Date Smoking Tobacco: Never Smokeless Tobacco: Never Tobacco Cessation:Counseling Given: Not Answered Alcohol Use Standard Drinks/Week Comments No 0 (1 standard drink = 0.6 oz pur e alcohol) Sex and Gender Information Value Date Recorded Sex Assigned at Not on file Legal Sex Male 2:36 AM REFRACTIVE SURGEON Gender Identity Not on file Sexual Orientation Straight 03/05/2021 10 :12 AM CDT Obstetrics History Last Filed Vital Signs Vital Sign Reading Time Taken Comments Blood Pressure 116/70 07/06/2024 8:06 AM REFRACTIVE SURGEON Pulse 81 07/06/2024 8:06 AM REFRACTIVE SURGEON Temperature 36.7 C (98.1 F) 03/22/2024 2:09 PM REFRACTIVE SURGEON Respiratory Rate 16 12/24/2023 8:00 AM CDT Oxygen Saturation 93% 07/06/2024 8:06 AM REFRACTIVE SURGEON Inhaled Oxygen Concentration - - Weight 128.8 kg (284 lb) 07/06/2024 8:06 AM REFRACTIVE SURGEON Height 177.8 cm (5' 10 ) 07/06/2024 8:06 AM REFRACTIVE SURGEON Body Mass Index 40.75 07/06/2024 8:06 AM REFRACTIVE SURGEON Plan of Treatment Health Maintenance Due Date Last Done Comments Colon Cancer Screening-Colonoscopy 1953 Depression Screening 1953 Fall Risk Assessment 1955 Hepatitis C Screening 1955 DTaP/Tdap/Td Vaccine (1 - Tdap) 1964 Hepatitis B Screening 10/15/1971 Zoster Vaccine (1 of 2) 10/15/2003 Well Visit 65+ 2018 Pneumococcal vaccine 65+ (2 of 2 - PPSV23) 02/05/2020 02/04/2019 Influenza Vaccine (Season Ended) 2025 02/05/20 19 Insurance UHC MEDICARE ADVANTAGE AETNA MEDICARE GOLD Advance Directives For more information, please contact: [phone] * Full Code (Latest Code Status on File) Date Activated Date Inactivated Comments 04/14/2018 9:38 AM 04/18/2018 6:09 PM Care Teams Yarn Washer Relationship Specialty Start Date End Date Aneta Canseco MD PCP - General Family Practice 05/04/20 Meghan Lua MD Consulting Physician Critical Care Med 06/25/18
--- OUTSIDE RECORDS SUMMARY | 2024-09-21 09:28 | XMS_ITS | Encounter Summary ---
Author Organization [facility] Address [address] [place] [address] Phone Care Team Providers Care Welder Fabricator Name Role Phone Meghan Lua MD Unavailable [phone] Aneta Canseco MD Primary Care Provider Encounter Details Date Type Department Care Team (Latest Contact Info) Description 02/04/2022 Orders Only STACK SLEEP Scanning, Provider Social History Tobacco Use Types Packs/Day Years Used Date Smoking Tobacco: Never Smokeless Tobacco: Never Alcohol Use Standard Drinks/Week Comments No 0 (1 standard drink = 0.6 oz pur e alcohol) Sex and Gender Information Value Date Recorded Sex Assigned at Not on file Legal Sex Male 2:36 AM ASE CERTIFIED TECHNICIAN Gender Identity Not on file Sexual Orientation Straight 03/05/2021 10 :12 AM CDT documented as of this encounter Plan of Treatment Not on file documented as of this encounter Procedures Procedure Name Priority Date/Time Associated Diagnosis Comments SLEEP LAB/STUDY - RESULT 02/04/2022 5:11 PM CDT documented in this encounter Results * SLEEP LAB/STUDY - RESULT (02/04/2022 5:11 PM CDT) us Provider Scanning Final Result documented in this encounter Visit Diagnoses Not on filedocumented in this encounter Care Teams Welder Fabricator Relationship Specialty Start Date End Date Aneta Canseco MD PCP - General Family Practice 05/04/20 Meghan Lua MD Consulting Physician Critical Care Med 06/25/18 documented as of this encounter
--- OUTSIDE RECORDS SUMMARY | 2024-09-21 09:28 | XMS_ITS | Clinical Summary ---
Author Organization [facility] [employer] Address [address] [place] [address] Care Team Providers Care Saw Cleaner Name Role Phone Aneta Canseco MD Primary Care Provider Source Comments [facility],non-owned Affiliates and Associated Physician Practices is amultiple site organization consisting of ambulatory clinics and hospital sitesin [place], [place], [place] and [place]. This disclosure is being madepursuant to the Care Everywhere program and may not contain all information available regarding this patient. Last updated 18.[facility] Allergies Active Allergy Reactions Criticality Noted Date Comments Tetanus Antitoxin Nausea and/or Vomiting,Fever High 12/23/2014 Medications * Be aware that medications may not be up to date on this document. Alwaysverify current medications with the patient. aspirin (ASPIRIN) 81 MG tablet Take 1 (one) tablet by mouth once daily Active atorvastatin (LIPITOR) 40 MG tablet Take 1 (one) tablet by mouth at bedtime Active METOPROLOL SUCCINATE ER PO Take 50 mg by mouth once daily Active modafinil (Provigil) 100 MG tablet Take 1 (one) tablet by mouth once daily 11/27/2021 Active irbesartan (Avapro) 150 MG tablet Take 1 (one) tablet by mouth once daily 12/03/2021 Active nitroGLYCERIN (Nitrostat) 0.4 MG tablet Dissolve 1 (one) tablet under the tongue 09/24/2021 Active chlorthalidone (Hygroton) 25 MG tablet Take 1 (one) tablet by mouth once daily Active metFORMIN CR 24hr modified (Glumetza) 1000 MG (MOD) tablet Take 1 (one) tablet by mouth daily with dinner Active cyclobenzaprine (Flexeril) 10 MG tablet Take 1 (one) tablet by mouth 3 times daily as needed FOR MUSCLE SPASM 10/11/2022 Active gabapentin (Neurontin) 100 MG capsule Take 6 (six) capsules by mouth at bedtime 10/08/2022 Active Accu-Chek Cathryn Plus test strip 12/06/2022 Act delon SOFTCLIX LANCETS MISC 12/06/2022 Active meclizine (Antivert) 25 MG tablet Take 1 (one) tablet by mouth 2 times daily as needed For dizziness. 06/16/2022 Active ondansetron, disintegrating, (Zofran ODT) 8 MG tablet DISSOLVE 1 TABLET IN MOUTH EVERY 8 HOURS FOR NAUSEA AND VOMITING 06/16/2022 Active SUMAtriptan (Imitrex) 100 MG tablet TAKE 1 TABLET BY MOUTH ONCE DAILY NEEDED FOR MIGRAINE HEADACHE. MAY REPEAT ONCE AFTER AT LEAST 2 HOURS. DO NOT EXCEED 2 DOSES IN 24 HOURS. 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 Hypersomnia 01/18/2019 Obstructive sleep apnea 01/18/2019 Periodic limb movement disorder 01/18/2019 HTN (hypertension) 04/14/2018 CAD (coronary artery disease) 11/29/2013 Immunizations Immunization Administration Dates Next Due MODERNA SARS-COV-2 COVID-19 VACCINE 0.25ML 06/21 Family History Medical History Relation Name Comments Stroke Brother 2 Heat Stroke Heart Failure Father Cancer - Colon Mother Relation Name Status Comments Brother 1 (Age 52) Brother 2 Father (Age 56) Mother (Age 68) Social History Tobacco Use Types Packs/Day Years Used Date Smoking Tobacco: Never Smokeless Tobacco: Never Tobacco Cessation:Counseling Given: No Alcohol Use Standard Drinks/Week Comments Yes 0 (1 standard drink = 0.6 oz pur e alcohol) rarely Sex and Gender Information Value Date Recorded Sex Assigned at Not on file Legal Sex Male 10:40 AM CDT Gender Identity Not on file Sexual Orientation Not on file 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 Not on file Not on fi le Last Filed Vital Signs Vital Sign Reading Time Taken Comments Blood Pressure 115/78 02/05/2023 9:14 AM CDT Pulse 71 02/05/2023 9:14 AM CDT Temperature 36.8 C (98.2 F) 02/05/2023 9:14 AM CDT Respiratory Rate 18 02/05/2023 9:14 AM CDT Oxygen Saturation 95% 02/05/2023 9:14 AM CDT Inhaled Oxygen Concentration 21% 10:10 AM APARTMENT COORDINATOR Weight 133.6 kg (294 lb 9.6 oz) 02/05/2023 9:14 AM CDT Height 177.8 cm (5' 10 ) 02/05/2023 9:14 AM CDT Body Mass Index 42.27 02/05/2023 9:14 AM CDT Plan of Treatment Health Maintenance Due Date Last Done Comments COLOGUARD (AGES 45-75) - COLON CA SCREENING 1953 COLON MONITORING 1953 COLONOSCOPY - COLON CA SCREENING 1953 CT COLONOGRAPHY - COLON CA SCREENING 1955 Colorectal Cancer Screening 1953 FIT - COLON CA SCREENING 1953 FLEX SIG - COLON CA SCREENING 1953 HEPATITIS C SCREENING 10/10/1971 DTAP/TDAP/TD VACCINES (1 - Tdap) 1972 PNEUMOCOCCAL VACCINE 50+ (1 of 1 - PCV) 10/15/2003 ZOSTER VACCINE (1 of 2) 10/15/2003 Respiratory Syncytial Virus (RSV) Vaccine Pt: or over 60 yrs (1 - Risk 60-74 years 1-dose series) 2013 COVID-19 VACCINE (2 - season) 2024 06/21/2020 DEPRESSION SCREENING 05/05/2024 MEDICARE AWV CALENDAR YEAR 2024 INFLUENZA VACCINE (Season Ended) 2025 SCREENING FOR DIABETES 03/25/2025 2, 03/25/2022, 03/18/2022, Additional history exists HEPATITIS B VACCINE Aged Out No longe r eligible based on patient's age to complete this topic HIB VACCINE Aged Out No longer eligi ble based on patient's age to complete this topic HPV VACCINE Aged Out No longer eligi ble based on patient's age to complete this topic MENINGOCOCCAL (Group B) VACCINE SHARED DECISION-MAKING Aged Out No longer eligible based on patient's age to complete this topic MENINGOCOCCAL GROUPS A/C/Y/W VACCINE Aged Out No longer eligible based on patient's age to complete this topic Medical Devices Implanted Type Area Lpn Rn Hospice Device Identifier Shelf Expiration Date Model / Serial / Lot Splnt Nsl Precut Ster Implanted:Qty: 1 on 03/25/2022 by Jacqueline Dhillon MD at [facility] [employer] [id number] / / Procedures Procedure Name Priority Date/Time Associated Diagnosis Comments GLUCOSE - POINT OF CARE Routine 03/25/2022 9:25 AM APARTMENT COORDINATOR from Last 3 Months or Most Recently Relevant to Health Maintenance Results * (ABNORMAL) GLUCOSE - POINT OF CARE (03/25/2022 9:25 AM APARTMENT COORDINATOR) [facility] Glucose WB/POC 128(H) 70 - 115 mg/dL 03/25/2022 9:30 AM APARTMENT COORDINATOR [facility] Specimen Type Cap Fingerstick 2021 9:30 AM APARTMENT COORDINATOR [facility] Blood BLOOD SPECIMEN / Unknown 03/25/2022 9:25 AM APARTMENT COORDINATOR 03/25/2022 9:30 AM APARTMENT COORDINATOR Jacqueline Dhillon MD LAB - POINT OF CARE ORDERAB LES Final Result Performing Organization Address [facility]/State/ZIP Co de Phone Number [facility] [address] [place] [address], [facility] [phone] from Last 3 Months or Most Recently Relevant to Health Maintenance Insurance [facility] MANAGED MEDICARE [place] [id number] * Guarantor: PARUL WHITLEY Account Type Relation to Patient Date of Phone Billing Address Personal/Family [address] [address] SELF PAY NO INSURANCE Member Subscriber Plan / Payer (Ef fective for All Dates) Name:Parul Whitley Member ID:Not on file Relation to Subscriber:Not on file Name:PARUL WHITLEY Subscriber ID:Not on file Address: [address] [place] [address] Payer ID:Not on file Group ID:Not on file Type:Self Pay Address: [place], [place] UHC MANAGED MEDICARE ADV * Guarantor: PARUL WHITLEY Account Type Relation to Patient Date of Phone Billing Address Personal/Family [address] [address] SELF PAY NO INSURANCE Member Subscriber Plan / Payer (Ef fective for All Dates) Name:Parul Whitley Member ID:Not on file Relation to Subscriber:Not on file Name:PARUL WHITLEY Subscriber ID:Not on file Address: [address] [place] [address] Payer ID:Not on file Group ID:Not on file Type:Self Pay Address: [place], [place] UHC MANAGED MEDICARE ADV * Guarantor: PARUL WHITLEY Account Type Relation to Patient Date of Phone Billing Address Personal/Family [address] [place], [place] [phone] SELF PAY NO INSURANCE Member Subscriber Plan / Payer (Ef fective for All Dates) Name:Parul Whitley Member ID:Not on file Relation to Subscriber:Not on file Name:PARUL WHITLEY Subscriber ID:Not on file Address: [address] [place] [address] Payer ID:Not on file Group ID:Not on file Type:Self Pay Address: [facility] MEDICARE ADV Care Teams Saw Cleaner Relationship Specialty Start Date End Date Aneta Canseco MD [address] [id number] PCP - General 10/05/21
--- OUTSIDE RECORDS SUMMARY | 2024-09-21 09:28 | XMS_ITS | Clinical Summary ---
Author Organization [facility] [address] [facility] Address [address] [place] [address] Care Team Providers Care Christian Counselor Name Role Phone Aneta Canseco MD Primary Care Provider Allergies Active Allergy Reactions Criticality Noted Date Comments Tetanus Toxoid Nausea and Vomiting Low 05/10/2020 Medications modafiniL (PROVIGIL) 100 mg Tablet Take 100 mg by mouth daily. Active atorvastatin (LIPITOR) 40 mg tablet Take 40 mg by mouth daily. Active chlorthalidone (HYGROTON) 25 mg tablet Take 25 mg by mouth daily. Active metoprolol succinate (TOPROL XL) 100 mg Extended Release 24 hour tablet Take 50 mg by mouth daily. Active irbesartan (AVAPRO) 150 mg tablet Take 150 mg by mouth daily at bedtime. Active gabapentin (NEURONTIN) 600 mg tablet Take 600 mg by mouth 2 times daily. Takes 100 in AM and 500 at bedtime Active glipiZIDE (GLUCOTROL XL) 2.5 mg Extended Release 24 hour tablet Take 2.5 mg by mouth daily with supper. Active aspirin (ECOTRIN EC) 81 mg Tablet, Delayed Release (E.C.) Take 81 mg by mouth daily. Active nitroglycerin (NITROSTAT) 0.4 mg Tablet, Sublingual Place 0.4 mg under tongue every 5 minutes as needed for Chest Pain. Active Active Problems No known active problems Social History Tobacco Use Types Packs/Day Years Used Date Smoking Tobacco: Never Smokeless Tobacco: Never Tobacco Cessation:Counseling Given: No Alcohol Use Standard Drinks/Week Comments Not Currently 0 (1 standard drink = 0.6 oz pur e alcohol) Sex and Gender Information Value Date Recorded Sex Assigned at Not on file Legal Sex Male 9:21 AM BUS AND TROLLEY INSPECTING DISPATCHER Gender Identity Not on file Sexual Orientation Not on file Last Filed Vital Signs Vital Sign Reading Time Taken Comments Blood Pressure - - Pulse - - Temperature - - Respiratory Rate - - Oxygen Saturation - - Inhaled Oxygen Concentration - - Weight 136.1 kg (300 lb) 05/10/2020 9:33 AM BUS AND TROLLEY INSPECTING DISPATCHER Height 177.8 cm (5' 10 ) 05/10/2020 9:33 AM BUS AND TROLLEY INSPECTING DISPATCHER Body Mass Index 43.05 05/10/2020 9:33 AM BUS AND TROLLEY INSPECTING DISPATCHER Plan of Treatment Health Maintenance Due Date Last Done Comments DIABETES ANNUAL FOOT EXAM 10/15/1971 DIABETES ANNUAL RETINAL EXAM 10/15/1971 DIABETES HBA1C Q 6 MONTHS 10/15/1971 DIABETES MICROALBUMIN ANNUAL SCREEN 10/15/1971 LDL CHOLESTEROL ANNUAL 10/15/1971 DTAP/TDAP/TD VACCINES (1 - Tdap) 1972 PNEUMOCOCCAL VACCINE 50+ YEARS (1 of 2 - PCV) 10/14/18 73 COLORECTAL SCREENING 1998 Colorectal Cancer Screening 1998 FIT-DNA Q 3 years 1998 FIT/FOBT Q 1 year 1998 Flex Sig/CT Colonography Q 5 years 1998 ZOSTER VACCINE (1 of 2) 10/15/2003 INFLUENZA VACCINE (#1) 2023 01/06/2020 RSV VACCINE (60+ or ) (1 - 1-dose 75+ series) 2028 Insurance [employer] GOLD PLUS O MCR Care Teams Christian Counselor Relationship Specialty Start Date End Date Aneta Canseco MD [address] [place] [id number] PCP - General Family Practice 05/09/20
[2024-09-21 13:38] LABS: Alanine Aminotransferase 44 U/L (6-50); Albumin Level 4.7 g/dL (3.5-5.1); Alkaline Phosphatase 52 U/L (38-126); Anion Gap 13 mmol/L (4-12); Aspartate Amino Transferase 55 U/L (17-59); Bilirubin,Total 0.6 mg/dL (0.2-1.3); Blood Urea Nitrogen 23 mg/dL (9-20); Calcium 9.8 mg/dL (8.4-10.2); Carbon Dioxide 28 mmol/L (22-30); Chloride 99 mmol/L (98-107); Estimated Glomerular Filt Rate > 60; Glucose 88 mg/dL (65-110); Potassium 3.8 mmol/L (3.4-5.0); Sodium 140 mmol/L (137-145)
[2024-09-21 14:02] LABS: Creatinine Urine 134.7 mg/dL
[2024-09-21 14:10] LABS: Microalbumin Urine Random 6.7 mg/L (0-16.7)
[2024-09-21 14:49] LABS: Hemoglobin A1C 5.9 % (<5.7)
== END 2024-09-21 09:18 | disposition home or self-care (01) ==
PROVIDERS: PCP Family Medicine; Visit Provider Family Medicine
DX: E11.9 Type 2 diabetes mellitus without complications (principal); I10 Essential (primary) hypertension
CPT/HCPCS: 36415; 80053; 82043; 83036

== ENCOUNTER 2024-10-15 01:21 | Day surgery (SDC) | payer MEDICARE, SELFPAY ==
[2024-10-11 13:05] VITALS: BMI 38.7
--- OUTSIDE RECORDS SUMMARY | 2024-10-15 01:23 | XMS_ITS | Clinical Summary ---
Author Organization [facility] Address [address] [address] Care Team Providers Care Manager Decision Support Name Role Phone Aneta Canseco MD Primary Care Provider Source Comments [facility],non-owned Affiliates and Associated Physician Practices is amultiple site organization consisting of ambulatory clinics and hospital sitesin [place], [place], [place] and [place]. This disclosure is being madepursuant to the Care Everywhere program and may not contain all information available regarding this patient. 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 Not on file Not on fi le Last Filed Vital Signs Vital Sign Reading Time Taken Comments Blood Pressure 115/78 02/05/2023 9:14 AM CDT Pulse 71 02/05/2023 9:14 AM CDT Temperature 36.8 C (98.2 F) 02/05/2023 9:14 AM CDT Respiratory Rate 18 02/05/2023 9:14 AM CDT Oxygen Saturation 95% 02/05/2023 9:14 AM CDT Inhaled Oxygen Concentration 21% 10:10 AM PAYABLE REPRESENTATIVE Weight 133.6 kg (294 lb 9.6 oz) 02/05/2023 9:14 AM CDT Height 177.8 cm (5' 10) 02/05/2023 9:14 AM CDT Body Mass Index [...] this topic Medical Devices Implanted Type Area Newborn Hearing Screener Device Identifier Shelf Expiration Date Model / Serial / Lot Splnt Nsl Precut Ster Implanted:Qty: 1 on 03/25/2022 by Jacqueline Dhillon MD at [facility] [employer] [id number] / / Procedures Procedure Name Priority Date/Time Associated Diagnosis Comments GLUCOSE - POINT OF CARE Routine 03/25/2022 9:25 AM PAYABLE REPRESENTATIVE from Last 3 Months or Most Recently Relevant to Health Maintenance Results * (ABNORMAL) GLUCOSE - POINT OF CARE (03/25/2022 9:25 AM PAYABLE REPRESENTATIVE) [facility] Glucose WB/POC 128(H) 70 - 115 mg/dL 03/25/2022 9:30 AM PAYABLE REPRESENTATIVE [facility] Specimen Type Cap Fingerstick 2021 9:30 AM PAYABLE REPRESENTATIVE [facility] Blood BLOOD SPECIMEN / Unknown 03/25/2022 9:25 AM PAYABLE REPRESENTATIVE 03/25/2022 9:30 AM PAYABLE REPRESENTATIVE Jacqueline Dhillon MD LAB - POINT OF CARE ORDERAB LES Final Result Performing Organization Address [facility]/State/ZIP Co de Phone Number [facility] [address] [place] [address], [facility] [phone] from Last 3 Months or Most Recently Relevant to Health Maintenance Insurance [facility] MANAGED MEDICARE ADV [place] [id number] * Guarantor: PARUL WHITLEY Account Type Relation to Patient Date of Phone Billing Address Personal/Family [address] [address] SELF PAY NO INSURANCE Member Subscriber Plan / Payer (Ef fective for All Dates) Name:Parul Whitley Member ID:Not on file Relation to Subscriber:Not on file Name:PARUL WHITLEY Subscriber ID:Not on file Address: [address] [place] [address] Payer ID:Not on file Group ID:Not on file Type:Self Pay Address: [place], [place] UHC MANAGED MEDICARE ADV * Guarantor: PARUL WHITLEY Account Type Relation to Patient Date of Phone Billing Address Personal/Family [address] [address] SELF PAY NO INSURANCE Member Subscriber Plan / Payer (Ef fective for All Dates) Name:Parul Whitley Member ID:Not on file Relation to Subscriber:Not on file Name:PARUL WHITLEY Subscriber ID:Not on file Address: [address] [place] [address] Payer ID:Not on file Group ID:Not on file Type:Self Pay Address: [place], [place] UHC MANAGED MEDICARE ADV * Guarantor: PARUL WHITLEY Account Type Relation to Patient Date of Phone Billing Address Personal/Family [address] [place], [place] [phone] SELF PAY NO INSURANCE Member Subscriber Plan / Payer (Ef fective for All Dates) Name:Parul Whitley Member ID:Not on file Relation to Subscriber:Not on file Name:PARUL WHITLEY Subscriber ID:Not on file Address: [address] [place] [address] Payer ID:Not on file Group ID:Not on file Type:Self Pay Address: [facility] MEDICARE ADV Care Teams Manager Decision Support Relationship Specialty Start Date End Date Aneta Canseco MD [address] [phone] PCP - General 10/05/21
--- OUTSIDE RECORDS SUMMARY | 2024-10-15 01:23 | XMS_ITS | Referral Summary ---
Author Organization [facility] [address] Address [address] [place] [address] Care Team Providers Care Qi Specialist Name Role Phone Meghan Lua MD Unavailable [phone] Aneta Canseco MD Primary Care Provider Allergies Active Allergy Reactions Criticality Noted Date Comments Tetanus Toxoid, Adsorbed Nausea And Vomi ting,Other (See comments) Low 03/07/2016 High fever Medications metFORMIN (GLUCOPHAGE) 1,000 mg tablet 2 Active nitroglycerin (NITROSTAT) 0.[address] 1 TABLET (0.4 MG TOTAL) UNDER THE TONGUE EVERY 5 (FIVE) MINUTES NEEDED FOR CHEST PAIN 25 tablet 11 3 Active levalbuterol (XOPENEX HFA) 45 mcg/actuation inhaler INHALE 1 TO 2 PUFFS BY MOUTH EVERY 6 HOURS NEEDED FOR SHORTNESS OF BREATH OR WHEEZING 4 Active Incruse Ellipta 62.5 mcg/actuation blister [...] mouth daily Active SUMAtriptan (IMITREX) 100 mg tabletIndicati ons:Migraine Take 1 tablet (100 mg total) by mouth once as needed for migraine Active metoprolol XL (TOPROL-XL) 50 mg extended release tablet Take 1 tablet (50 mg total) by mouth daily 100 tablet 3 5 Active irbesartan (AVAPRO) 150 mg tablet Take 1 tablet (150 mg total) by mouth nightly 90 tablet 3 5 Active chlorthalidone (HYGROTON) 25 mg tabletIndicati ons:History of coronary artery stent placement Take 1 tablet (25 mg total) by mouth daily 90 tablet 3 5 Active atorvastatin (LIPITOR) 40 mg tablet Take 1 tablet (40 mg total) by mouth daily 90 tablet 3 5 Active aspirin (Rachael Low Dose Aspirin) 81 mg enteric coated tablet Take 1 tablet (81 mg total) by mouth daily 90 tablet 5 Active aspirin (ASPIRIN LOW DOSE) 81 mg tablet take 1 Tablet (81MG) by oral route every day 0 3 025 Discontin ued(Reord er) atorvastatin (LIPITOR) 40 mg tablet Take 1 tablet (40 mg total) by mouth daily 90 tablet 3 4 025 Discontin ued(Reord er) chlorthalidone (HYGROTON) 25 mg tabletIndicati ons:History of coronary artery stent placement Take 1 tablet (25 mg total) by mouth daily 90 tablet 3 4 025 Discontin ued(Reord er) irbesartan (AVAPRO) 150 mg tablet Take 1 tablet (150 mg total) by mouth nightly 90 tablet 3 4 025 Discontin ued(Reord er) metoprolol XL (TOPROL-XL) 50 mg extended release tablet Take 1 tablet (50 mg total) by mouth daily 100 tablet 3 5 025 Discontin ued(Reord er) Active Problems Problem Noted Date Diagnosed Date [...] on file Legal Sex 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 Gender Identity Not on file Sexual Orientation Straight 03/05/2021 10 :12 AM CDT Last Filed Vital Signs Vital Sign Reading Time Taken Comments Blood Pressure 116/70 07/06/2024 8:06 AM FIREBRICK AND REFRACTORY TILE REPAIRER Pulse 81 07/06/2024 8:06 AM FIREBRICK AND REFRACTORY TILE REPAIRER Temperature 36.7 C (98.1 F) 03/22/2024 2:09 PM FIREBRICK AND REFRACTORY TILE REPAIRER Respiratory Rate 16 12/24/2023 8:00 AM CDT Oxygen Saturation 93% 07/06/2024 8:06 AM FIREBRICK AND REFRACTORY TILE REPAIRER Inhaled Oxygen Concentration - - Weight 128.8 kg (284 lb) 07/06/2024 8:06 AM FIREBRICK AND REFRACTORY TILE REPAIRER Height 177.8 cm (5' 10) 07/06/2024 8:06 AM FIREBRICK AND REFRACTORY TILE REPAIRER Body Mass Index 40.75 07/06/2024 8:06 AM FIREBRICK AND REFRACTORY TILE REPAIRER Plan of Treatment Not on file Insurance [facility] UHC MEDICARE ADVANTAGE AET[employer] MEDICARE GOLD Advance Directives For more information, please contact: [phone] * Full Code (Latest Code Status on File) Date Activated Date Inactivated Comments 04/14/2018 9:38 AM 04/18/2018 6:09 PM Care Teams Qi Specialist Relationship Specialty Start Date End Date Aneta Canseco MD PCP - General Family Practice 05/04/20 Meghan Lua MD Consulting Physician Critical Care Med 06/25/18
--- OUTSIDE RECORDS SUMMARY | 2024-10-15 01:23 | XMS_ITS | Clinical Summary ---
Author Organization [facility] Address [address] [place] [address] Care Team Providers Care Volleyball Coach Name Role Phone Aneta Canseco MD Primary [...] on file Legal Sex Male 9:21 AM GENETIC COORDINATOR Gender Identity Not on file Sexual Orientation Not on file Last Filed Vital Signs Vital Sign Reading Time Taken Comments Blood Pressure - - Pulse - - Temperature - - Respiratory Rate - - Oxygen Saturation - - Inhaled Oxygen Concentration - - Weight 136.1 kg (300 lb) 05/10/2020 9:33 AM GENETIC COORDINATOR Height 177.8 cm (5' 10) 05/10/2020 9:33 AM GENETIC COORDINATOR Body Mass Index 43.05 05/10/2020 9:33 AM GENETIC COORDINATOR Plan of Treatment Health Maintenance Due Date [...] [employer] GOLD PLUS O MCR Care Teams Volleyball Coach Relationship Specialty Start Date End Date Aneta Canseco MD [address] [place] [id number] PCP - General Family Practice 05/09/20
--- OUTSIDE RECORDS SUMMARY | 2024-10-15 01:23 | XMS_ITS | Clinical Summary ---
Author Organization [facility] [address] Address [address] [place] [address] Care Team Providers Care Lead Programmer Analyst Name Role Phone Meghan Lua MD Unavailable [phone] Aneta Canseco MD Primary Care Provider Allergies [...] obesity with BMI of 40.0-44.9, adult 12/03 Surgical History Surgery Date Site/Laterality Comments POLYPECTOMY Polypectomy OTHER SURGICAL HISTORY sphincterotomy COLONOSCOPY ANGIOPLASTY 03/11/2012 SPINE SURGERY March 18, 2022 Mi croscopic Spinal Surgery to repair nerve cord compression and bulging disk at L-3/L-4. Medical History Medical History Date Comments Hypertension Hypertension [place] (myocardial infarction) (HCC) Arthritis Brain concussion 04/20/2017 Migraines 1970 Seizures (HCC) 04/2017 Sleep apnea 2014 Diabetes mellitus ([facility]) Mixed conductive and sensori neural hearing loss [...] on file Legal Sex Male 2:36 AM MEDICAL OFFICE SUPERVISOR Gender Identity Not on file Sexual Orientation Straight 03/05/2021 10 :12 AM CDT Obstetrics History Last Filed Vital Signs Vital Sign Reading Time Taken Comments Blood Pressure 116/70 07/06/2024 8:06 AM MEDICAL OFFICE SUPERVISOR Pulse 81 07/06/2024 8:06 AM MEDICAL OFFICE SUPERVISOR Temperature 36.7 C (98.1 F) 03/22/2024 2:09 PM MEDICAL OFFICE SUPERVISOR Respiratory Rate 16 12/24/2023 8:00 AM CDT Oxygen Saturation 93% 07/06/2024 8:06 AM MEDICAL OFFICE SUPERVISOR Inhaled Oxygen Concentration - - Weight 128.8 kg (284 lb) 07/06/2024 8:06 AM MEDICAL OFFICE SUPERVISOR Height 177.8 cm (5' 10) 07/06/2024 8:06 AM MEDICAL OFFICE SUPERVISOR Body Mass Index 40.75 07/06/2024 8:06 AM MEDICAL OFFICE SUPERVISOR Plan of Treatment Health Maintenance Due Date Last Done Comments Colon Cancer Screening-Colonoscopy 1955 Depression Screening 1955 Fall Risk Assessment 1955 Hepatitis C Screening 1955 DTaP/Tdap/Td Vaccine (1 - Tdap) 1964 Hepatitis B Screening 10/15/1971 Zoster Vaccine (1 of 2) 10/15/2003 Well Visit 65+ 2018 Pneumococcal vaccine 65+ (2 of 2 - PPSV23) 02/05/2020 02/04/2019 Influenza Vaccine (Season Ended) 2025 02/05/20 19 Insurance [facility] UHC MEDICARE ADVANTAGE AETNA MEDICARE GOLD Advance Directives For more information, please contact: [phone] * Full Code (Latest Code Status on File) Date Activated Date Inactivated Comments 04/14/2018 9:38 AM 04/18/2018 6:09 PM Care Teams Lead Programmer Analyst Relationship Specialty Start Date End Date Aneta Canseco MD PCP - General Family Practice 05/04/20 Meghan Lua MD Consulting Physician Critical Care Med 06/25/18
--- OUTSIDE RECORDS SUMMARY | 2024-10-15 01:23 | XMS_ITS | Encounter Summary ---
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
[2024-10-15 09:30] VITALS: BP 128/77; PULSE 75; RESP 18; TEMP 36; O2SAT 98; BMI 38.1
[2024-10-15] MEDS: LACTATED RINGERS 1,000 ML 150 ML IV CONT (09:34)
--- NOTE | 2024-10-15 09:45 | P.PNAN_ITS ---
Anes - Initial Pre Proc Eval Procedure: Operation Date: 10/15/24 10:30 Proposed Procedures p Screening Colonoscopy - Sheng Mckeon MD Date/Time: 10/15/24 09:45 Surgeon: Sheng Mckeon MD Pre Op Diagnosis: Personal history of colon polyps, unspecified Patient Data Age: 69 Gender: M Height: 1.78 m Weight: 120.6 kg Last Vital Signs Temp 36.0 C L 10/15/24 09:30 Pulse 75 10/15/24 09:30 Resp 18 10/15/24 09:30 BP 128/77 10/15/24 09:30 Pulse Ox 98 10/15/24 09:30 O2 Del Method Room Air 10/15/24 09:30 Allergies Allergy/AdvReac Type Severity Reaction Status Date / Time Tetanus Vaccines and Toxoid Allergy Unknown HIGH Verified 10/15/24 09:28 FEVER, N/V Home Medications ?Medication ?Instructions ?Recorded ?Confirmed ?Type chlorthalidone 25 mg tablet 25 mg PO QAM 03/15/19 10/15/24 History metoprolol succinate 50 mg 50 mg PO HS 11/29/19 10/15/24 History tablet,extended release 24 hr sumatriptan succinate 100 mg 100 mg PO DAILY PRN migraine 09/06/22 10/15/24 Rx tablet (Imitrex) headache #30 tabs atorvastatin 40 mg tablet 40 mg PO QHS 03/19/23 10/15/24 History irbesartan 150 mg tablet 150 mg PO QHS 03/19/23 10/15/24 History aspirin 81 mg capsule 81 mg PO HS 06/12/23 10/15/24 History blood-glucose meter (OneTouch #1 ea 07/29/23 10/12/24 Rx Verio Flex Start kit) lancets 33 gauge (OneTouch [facility] #100 ea 03/29/24 10/12/24 Rx Plus Lancet) umeclidinium 62.5 mcg/actuation 1 inh inhalation DAILY #30 ea 05/25/24 10/15/24 Rx blister powder for inhalation (Incruse Ellipta) levalbuterol tartrate 45 1 - 2 inh inhalation Q6H PRN 07/01/24 10/15/24 Rx mcg/actuation aerosol inhaler shortness of breath or wheezing #15 grams blood sugar diagnostic (OneTouch #100 ea 08/04/24 10/12/24 Rx Verio test strips) meloxicam 15 mg tablet 15 mg PO DAILY #90 tabs 08/31/24 10/15/24 Rx metformin 500 mg tablet,extended 1,000 mg (2 x 500 mg) PO DAILY 09/13/24 10/15/24 Rx release 24 hr #180 tabs topiramate 50 mg tablet 50 mg PO BID #90 tabs 09/21/24 10/15/24 Rx Patient hx anesthesia problems: none Family hx anesthesia problems: none Results Review: All pre-operative results and documents have been reviewed as part of the pre- operative evaluation. [facility] Past Medical History Medical History History of colon polyps Osteochondral talar dome lesion Labyrinthitis, left ear Vertigo CSF rhinorrhea History of basal cell carcinoma (BCC) Allergic rhinitis Nasal septal deviation Family history of colon cancer in mother Type 2 diabetes mellitus without complications Basal cell carcinoma of skin of unspecified eyelid, including canthus Chronic pelvic pain in male Coronary artery disease involving [place] heart without angina pectoris (~2015) Migraine with aura, not intractable, without status migrainosus (~2014) CALI (obstructive sleep apnea) (~2008) Other hyperlipidemia (~2008) Primary osteoarthritis involving multiple joints (~2008) Restless legs syndrome (~2014) Testosterone insufficiency (~2015) Surgical History Surgical History Hx of biopsy (~10/2023) excisional biopsy right axillary mass measuring 3 x 2 cm 10/06/23 History of lumbar laminectomy for spinal cord decompression (~03/2022) H/O sinus surgery (~03/25/22) History of dilation of urethra History of angioplasty (~04/2020) 04/2020 History of coronary artery stent placement (~03/2016) 03/2016 H/O cystoscopy (~2016) 2017 - urethral dilatation History of removal of pigmented skin lesion (~2016) 2017 - Mainly on the face Family History Family History Mother Carcinoma of colon, Onset Age: 68 Father Family history of coronary artery disease Acute myocardial infarction, Onset Age: 56 Daughter Rheumatoid arthritis Social History Social History Social History: Code status: Full code. Smoking status: Never smoker Second hand tobacco smoke exposure: No Alcohol intake: never Substance use: never Substance use type: does not use Lack of Transportation: No Lack of Food: Never True Current Housing: I Have Housing Concerned About Future Housing: No Difficulty Paying Gas/Electric Bills: No Difficulty Paying for Meds: No Currently Unemployed: No Education: Associate Degree Difficulty w/ Childcare or Family Care: No Living arrangements: with family Additional living arrangements comments: Occupation/Education: retired Gender identity (if verbalized by the patient): Male Spiritual care concerns: No Anes - Eval Final PreProcedure Day of Procedure 10/15/24 09:45 Patient weight: obese Heart: regular rate and rhythm Lungs: decreased breath sounds Airway: Mallampati scale class II Neurological: alert and oriented Last oral intake: >/= 8 hours ASA classification: IV Emergent: no Anesthetic plan: proceed Anesthesia type and monitoring: general GIVS and standard monitoring Results Review: All pre-operative results and documents have been reviewed as part of the pre- operative evaluation. Informed Consent: The patient's anesthetic plan and its attendant risks and benefits were discussed with the patient/family/POA. Questions were solicited and answers provided to the satisfaction of the patient/family/POA.
[2024-10-15 09:55] LABS: Glucose Point of Care 107 mg/dl (65-105)
--- NOTE | 2024-10-15 10:20 | PM.HPGS ---
History of Present Illness History of Present Illness Consent: Risks, benefits, and alternatives have been discussed and questions answered. Patient agrees to proceed with procedure. Chief complaint: Personal history of colon polyps, unspecified Narrative: Blair Lauren is a 69 year old male with colon polyp 3 years ago Review of Systems Review of Systems: All systems reviewed & are unremarkable except as noted in HPI and below PMFSH Past Medical History Medical History History of colon polyps Osteochondral talar dome lesion Labyrinthitis, left ear Vertigo CSF rhinorrhea History of basal cell carcinoma (BCC) Allergic rhinitis Nasal septal deviation Family history of colon cancer in mother Type 2 diabetes mellitus without complications Basal cell carcinoma of skin of unspecified eyelid, including canthus Chronic pelvic pain in male Coronary artery disease involving [place] heart without angina pectoris (~2015) Migraine with aura, not intractable, without status migrainosus (~2014) CALI (obstructive sleep apnea) (~2008) Other hyperlipidemia (~2008) Primary osteoarthritis involving multiple joints (~2008) Restless legs syndrome (~2014) Testosterone insufficiency (~2015) Surgical History Surgical History Hx of biopsy (~10/2023) excisional biopsy right axillary mass measuring 3 x 2 cm 10/06/23 History of lumbar laminectomy for spinal cord decompression (~03/2022) H/O sinus surgery (~03/25/22) History of dilation of urethra History of angioplasty (~04/2020) 04/2020 History of coronary artery stent placement (~03/2016) 03/2016 H/O cystoscopy (~2017) 2017 - urethral dilatation History of removal of pigmented skin lesion (~2016) 2017 - Mainly on the face Family History Family History Mother Carcinoma of colon, Onset Age: 68 Father Family history of coronary artery disease Acute myocardial infarction, Onset Age: 56 Daughter Rheumatoid arthritis Social History Social History Social History: Code status: Full code. Smoking status: Never smoker Second hand tobacco smoke exposure: No Alcohol intake: never Substance use: never Substance use type: does not use Lack of Transportation: No Lack of Food: Never True Current Housing: I Have Housing Concerned About Future Housing: No Difficulty Paying Gas/Electric Bills: No Difficulty Paying for Meds: No Currently Unemployed: No Education: Associate Degree Difficulty w/ Childcare or Family Care: No Living arrangements: with family Additional living arrangements comments: Occupation/Education: retired Gender identity (if verbalized by the patient): Male Spiritual care concerns: No Meds Home Medications and Allergies Home Medications ?Medication ?Instructions ?Recorded ?Confirmed ?Type chlorthalidone 25 mg tablet 25 mg PO QAM 03/15/19 10/15/24 History metoprolol succinate 50 mg 50 mg PO HS 11/29/19 10/15/24 History tablet,extended release 24 hr sumatriptan succinate 100 mg 100 mg PO DAILY PRN migraine 09/06/22 10/15/24 Rx tablet (Imitrex) headache #30 tabs atorvastatin 40 mg tablet 40 mg PO QHS 03/19/23 10/15/24 History irbesartan 150 mg tablet 150 mg PO QHS 03/19/23 10/15/24 History aspirin 81 mg capsule 81 mg PO HS 06/12/23 10/15/24 History blood-glucose meter (OneTouch #1 ea 07/29/23 10/12/24 Rx Verio Flex Start kit) lancets 33 gauge (OneTouch [facility] #100 ea 03/29/24 10/12/24 Rx Plus Lancet) umeclidinium 62.5 mcg/actuation 1 inh inhalation DAILY #30 ea 05/25/24 10/15/24 Rx blister powder for inhalation (Incruse Ellipta) levalbuterol tartrate 45 1 - 2 inh inhalation Q6H PRN 07/01/24 10/15/24 Rx mcg/actuation aerosol inhaler shortness of breath or wheezing #15 grams blood sugar diagnostic (OneTouch #100 ea 08/04/24 10/12/24 Rx Verio test strips) meloxicam 15 mg tablet 15 mg PO DAILY #90 tabs 08/31/24 10/15/24 Rx metformin 500 mg tablet,extended 1,000 mg (2 x 500 mg) PO DAILY 09/13/24 10/15/24 Rx release 24 hr #180 tabs topiramate 50 mg tablet 50 mg PO BID #90 tabs 09/21/24 10/15/24 Rx Allergies Allergy/AdvReac Type Severity Reaction Status Date / Time Tetanus Vaccines and Toxoid Allergy Unknown HIGH Verified 10/15/24 09:28 FEVER, N/V Vital Signs Vital Signs - 24 hr 10/15/24 09:30 Temperature 96.8 F L Pulse Rate 75 Respiratory Rate 18 Blood Pressure 128/77 Pulse Oximetry 98 Oxygen Delivery Room Air Exam Const: General: comfortable and no acute distress HENMT: Face/Nose/Sinus: Normal nares present Eyes: General: appearance normal, both eyes and all related structures Neck: Neck: no JVD Resp: Auscultation: clear to auscultation bilaterally Cardio: Rate: regular rate Rhythm: regular rhythm GI: Inspection: non-distended GI Palp: Yes Soft to palpation Skin: General skin exam: normal color Neuro: General: gait normal Speech: normal speech Extrem: General: normal to inspection Psych: Mental Status: mental status grossly normal Assessment and Plan Assessment and plan (1) History of colon polyps: Code(s): Z86.010 - Personal history of colon polyps Status: Acute Assessment and Plan: colonoscopy
--- NOTE | 2024-10-15 10:43 | S_PTH ---
PATIENT: Blair Lauren LOC: [facility]#:[id number] AGE/SX: 69/M ROOM: RE10/15/[address]: Sheng Mckeon MD : 1955 BED: DIS: 10/15/2024 SPEC #: [id number] RECD: 10/15/24 13:23 STATUS: ZOË MAGANA #: [id number] AISLINN: 10/15/24 10:[address]: Sheng Mckeon DEPT: [facility] Surgical RECD BY: Gardenia Bermudez ENTERED: 10/15/24 13:23 SP TYPE: Surgical OTHR DR: Aneta Canseco MD Tissues: A - Colon Polypectomy B - Colon Polypectomy Procedures: Hematoxylin and Eosin Stain Gross and Microscopic Level 4
[2024-10-15 10:45] VITALS: BP 112/67; PULSE 63; RESP 14; O2SAT 98
[2024-10-15 10:55] VITALS: BP 114/73; PULSE 61; RESP 19; O2SAT 97
[2024-10-15 11:05] VITALS: BP 119/78; PULSE 51; RESP 22; O2SAT 100
== END 2024-10-15 11:20 | disposition home or self-care (01) ==
PROVIDERS: PCP Family Medicine; Referring Provider Family Medicine; Visit Provider Internal Medicine Gastroenterology
PROC: 0DJD8ZZ Inspection of Lower Intestinal Tract, Via Natural or Artificial Opening Endoscopic (ICD-10-PCS; CPT 45378; principal; 2024-10-15 10:30)
DX: Z12.11 Encounter for screening for malignant neoplasm of colon (principal); D12.8 Benign neoplasm of rectum; K63.5 Polyp of colon; K57.30 Diverticulosis of large intestine without perforation or abscess without bleeding; E11.9 Type 2 diabetes mellitus without complications; I25.10 Atherosclerotic heart disease of native coronary artery without angina pectoris; G47.33 Obstructive sleep apnea (adult) (pediatric); M15.0 Primary generalized (osteo)arthritis; G25.81 Restless legs syndrome; E29.1 Testicular hypofunction; G89.29 Other chronic pain; R10.2 Pelvic and perineal pain; E66.9 Obesity, unspecified; Z68.38 Body mass index [BMI] 38.0-38.9, adult; Z79.82 Long term (current) use of aspirin; Z79.51 Long term (current) use of inhaled steroids; Z79.84 Long term (current) use of oral hypoglycemic drugs; Z98.890 Other specified postprocedural states; Z98.1 Arthrodesis status; Z95.5 Presence of coronary angioplasty implant and graft; Z85.828 Personal history of other malignant neoplasm of skin; Z80.0 Family history of malignant neoplasm of digestive organs; Z82.49 Family history of ischemic heart disease and other diseases of the circulatory system
CPT/HCPCS: 45385; 82948; 88305; J2003; J2704; J7120

== ENCOUNTER 2024-10-20 08:38 | Outpatient (CLI) | payer MEDICARE, SELFPAY ==
--- NOTE | ~2024-10-20 | XR_ITS ---
3 VIEWS LUMBAR SPINE Ordering provider: Madison Canseco MD History: . M54.50 - Low back pain, unspecified . Comparison: October 11, 2022 FINDINGS: VERTEBRAL BODIES: No visible fracture or subluxation. Degenerative changes with marginal osteophytes. DISK SPACES: Narrowing of the disc L1-2, L2-L3, L4-L5 and L5-S1 with severe narrowing at the level of L1-L2 and L5-S1. Multilevel facet joint disease in the lower lumbar area. SOFT TISSUES: Atherosclerotic changes of the left IMPRESSION: No acute osseous abnormality lumbar spine. Multilevel degenerative disc disease. Reviewed, dictated and finalized at location A.
== END 2024-10-20 08:39 | disposition home or self-care (01) ==
LOC: GOSHIMG 08:38
PROVIDERS: PCP Family Medicine; Visit Provider Family Medicine
DX: M51.369 Other intervertebral disc degeneration, lumbar region without mention of lumbar back pain or lower extremity pain (principal); M51.379 Other intervertebral disc degeneration, lumbosacral region without mention of lumbar back pain or lower extremity pain
CPT/HCPCS: 72110

== ENCOUNTER 2024-10-29 12:32 | Outpatient (CLI) | payer MEDICARE, SELFPAY ==
--- NOTE | 2024-10-29 16:57 | WPDPFTINT ---
PFT Procedure Performed PFT Procedure Performed Spirometry with Pre/Post Bronchodilator Plethysmography (Lung Vol) Diffusing Cap (DLCO) Flow Vol Loop PFT Interpretation This is a pulmonary function test with pre and post-bronchodilator spirometry, plethysmography and diffusing capacity. The test was performed and results interpreted in accordance with the 2019 and 2005 ATS/ERS Task Force guidelines respectively using the Global Lung Function Initiative-2012 reference equations. Patient demonstrated good effort and cooperation. Reproducibility criteria were met. The quality of the pre bronchodilator spirometry maneuver was Grade B and post bronchodilator spirometry maneuver was Grade B. Findings: Spirometry: The contour the inspiratory and expiratory flow tracing are normal. The pre bronchodilator FVC is 2.85 L, 68% predicted. The pre bronchodilator FEV1 is 1.97 L, 62% predicted. The pre bronchodilator FEV1: FVC ratio 69%. The post bronchodilator FVC is 2.35 L, representing a 17% decrease. The post bronchodilator FEV1 is 1.62 L, representing an 18% decrease. The post bronchodilator FEV1: FVC ratio 69%. Plethysmography: The total lung capacity is 4.28 L, 61% predicted. The functional residual capacity is 1.86 L, 50% predicted. The residual volume is 1.43 L, 58% predicted. Diffusing capacity: The diffusing capacity unadjusted for hemoglobin and carboxyhemoglobin is 15.5, 60% predicted. The diffusing capacity adjusted for alveolar volume is 4.56, 117% predicted. In comparison to previous pulmonary function testing on 04/30/2024 the pre bronchodilator FVC is unchanged from 2.51 L to 2.85 L. The pre bronchodilator FEV1 is unchanged from 2.11 L to 1.97. The post bronchodilator FVC is unchanged from 2.66 L to 2.35 L. The post bronchodilator FEV1 is decreased from 2.15 L to 1.62 L. The total lung capacity is increased from 3.70 L to 4.28 L. The functional residual capacity is unchanged from 1.76 L to 1.86 L. The residual volume is increased from 0.72 L to 1.43 L. The diffusing capacity unadjusted for hemoglobin and carboxyhemoglobin is unchanged from 17.1 to 15.5. The diffusing capacity adjusted for alveolar volume is unchanged from 4.32 to 4.56 Impression: There is a moderate restrictive ventilatory abnormality. The spirometry is normal without evidence of an obstructive abnormality. There is no significant improvement after inhaling a single dose of albuterol. The diffusing capacity unadjusted for hemoglobin and carboxyhemoglobin is moderately decreased and normalizes when adjusted for alveolar volume. In comparison to previous pulmonary function testing on 04/30/2024 there has been a greater than anticipated time dependent decrease in the post bronchodilator FEV1. There has been a greater than anticipated time dependent increase in the total lung capacity and residual volume with no significant change in the pre bronchodilator FVC, pre bronchodilator FEV1, post bronchodilator FVC, functional residual capacity, residual volume, and DLCO.
== END 2024-10-29 12:33 | disposition home or self-care (01) ==
PROVIDERS: PCP Family Medicine; Visit Provider Internal Medicine Pulmonary Disease
DX: J84.9 Interstitial pulmonary disease, unspecified (principal); J98.4 Other disorders of lung
CPT/HCPCS: 94060; 94726; 94729

== ENCOUNTER 2024-12-14 10:39 | Outpatient (CLI) | payer MEDICARE, SELFPAY ==
--- NOTE | ~2024-12-14 | MR_ITS ---
EXAMINATION: MR cervical spine wo con DATE: 12/14/2024 11:52 INDICATION: Disease of spinal cord TECHNIQUE: Magnetic resonance imaging (MRI) of the cervical spine was performed without intravenous c ontrast. Sequences included sagittal T2-weighted FSE, sagittal T2-weighted FS FSE, sagittal T1-weight ed FSE, axial MERGE and axial T2-weighted FSE. COMPARISON: 12/18/2022 FINDINGS: Bone alignment is normal. Vertebral body heights are normal. Bone marrow signal intensity is normal . Moderate disc height loss at C5-C6 and mild disc height loss at the remaining levels from C2-C3 thr ough C6-C7 and at T1-T2 and T2-T3. Cord signal intensity is normal. Visualized cervical soft tissues are unremarkable. The following disc levels are specifically discussed: C2-C3: The disc does not extend beyond the endplate margin. There is mild left and moderate right unc overtebral joint osteoarthritis, potentially with fusion across the right uncovertebral joint. There is moderate right and severe left facet joint osteoarthritis. There is mild right neural foraminal st enosis. There is no central canal stenosis. C3-C4: Disc is bulging. There is moderate bilateral uncovertebral joint osteoarthritis. There is mode rate left and severe right facet joint osteoarthritis. There is moderate left and mild to moderate ri ght neural foraminal stenosis. There is mild central canal stenosis. C4-C5: Disc is bulging. There is mild left and moderate right uncovertebral joint osteoarthritis. The re is moderate left and severe right facet joint osteoarthritis. There is mild to moderate left and m oderate right neural foraminal stenosis. There is minimal central canal stenosis. C5-C6: Disc is bulging. There is moderate to severe bilateral uncovertebral joint osteoarthritis. The re is moderate bilateral facet joint osteoarthritis. There is mild left and mild to moderate right ne ural foraminal stenosis. There is mild central canal stenosis. C6-C7: Disc is bulging. There is mild bilateral uncovertebral joint osteoarthritis. There is mild rig ht and moderate left facet joint osteoarthritis. There is mild bilateral neural foraminal stenosis. T here is mild central canal stenosis. C7-T1: The disc does not extend beyond the endplate margin. There is no uncovertebral joint osteoarth ritis. There is mild to moderate bilateral facet joint osteoarthritis. There is no neural foraminal s tenosis. There is no central canal stenosis. IMPRESSION: 1. No significant interval change in mild to moderate cervical spondylosis. Reviewed, dictated and finalized at location A.
--- NOTE | ~2024-12-14 | MR_ITS ---
EXAMINATION: MR thoracic spine wo con DATE: 12/14/2024 11:52 INDICATION: Disease of spinal cord TECHNIQUE: Magnetic resonance imaging (MRI) of the thoracic spine was performed without intravenous c ontrast. Sagittal localizer T1-weighted FSE of the cervicothoracic spine was obtained. Thoracic spine sequences included sagittal T2-weighted FSE, sagittal T1-weighted SE, Sagittal T2-weighted FS FSE, a nd axial T2-weighted FSE. COMPARISON: 12/18/2022 FINDINGS: Alignment is normal.Vertebral body heights are normal. Normal marrow signal. Disc heights are normal. No interval change in disc desiccation and mild disc height loss at multiple levels throughout the th oracic spine from T1-T2 through T11-T12. This disc do not extend beyond the endplate margins with no central canal stenosis. There is however very mild central canal stenosis at T12-L1 resulting from a small right paracentral disc protrusion. Again seen is multilevel moderate to severe facet osteoarthr itis throughout the thoracic spine which contributes to mild neural foraminal stenosis at multiple le vels on the left and right sides of the mid to lower thoracic spine. The conus terminates below the i nferior margin of the [id number]-oxud which is at the midportion of L1. There is normal spinal cord sig nal. Paravertebral soft tissues are unremarkable. IMPRESSION: 1. Unchanged mild thoracic spondylosis. Reviewed, dictated and finalized at location A.
--- OUTSIDE RECORDS SUMMARY | 2024-12-14 11:31 | XMS_ITS | Clinical Summary ---
Author Organization [facility] Address [address] [address] Care Team Providers Care Box Builder Name Role Phone Aneta Canseco MD Primary Care Provider Source Comments [facility],non-owned Affiliates and Associated Physician Practices is amultiple site organization consisting of ambulatory clinics and hospital sitesin [place], [place], [place] and [place]. This disclosure is being madepursuant to the Care Everywhere program and may not contain all information available regarding this patient. Last updated 18.[facility] [employer] Allergies Active Allergy Reactions Criticality Noted Date [...] (one) tablet by mouth at bedtime Active irbesartan (Avapro) 150 MG tablet Take 1 (one) tablet by mouth once daily 2 Active chlorthalidone (Hygroton) 25 MG tablet Take 1 (one) tablet by mouth once daily Active metFORMIN CR 24hr modified (Glumetza) 1000 MG (MOD) tablet Take 1 (one) tablet by mouth daily with dinner Active Accu-Chek Cathryn Plus test strip 3 Active SOFTCLIX LANCETS MISC 3 Active SUMAtriptan (Imitrex) 100 MG tablet TAKE 1 TABLET BY MOUTH ONCE DAILY NEEDED FOR MIGRAINE HEADACHE. MAY REPEAT ONCE AFTER AT LEAST 2 HOURS. DO NOT EXCEED 2 DOSES IN 24 HOURS. 3 Active albuterol (Proventil;Vent inez) (2.5 MG/3ML) 0.083% nebulizer solution INHALE ONE VIAL (3ML) VIA NEBULIZER EVERY 4 TO 6 HOURS NEEDED FOR SHORTNESS OF BREATH AND WHEEZING Active levalbuterol (Xopenex) 45 MCG/ACT inhaler INHALE 1 TO 2 PUFFS BY MOUTH EVERY 6 HOURS NEEDED FOR SHORTNESS OF BREATH OR WHEEZING Active topiramate (Topamax) 50 MG tablet Take 1 (one) tablet by mouth 2 times daily 5 Active metFORMIN ER 24hr (Glucophage XR) 500 MG tablet Take 2 (two) tablets by mouth once daily 5 Active metoprolol succinate XL 24hr (Toprol XL) 50 MG tablet Take 1 (one) tablet by mouth once daily 5 Active meloxicam (Mobic) 15 MG tablet 5 Active METOPROLOL SUCCINATE ER PO Take 50 mg by mouth once daily 11/18/19 25 Discontinu ed(List Clean-Up) modafinil (Provigil) 100 MG tablet Take 1 (one) tablet by mouth once daily 2 11/18/19 25 Discontinu ed(List Clean-Up) nitroGLYCERIN (Nitrostat) 0.4 MG tablet Dissolve 1 (one) tablet under the tongue 2 11/18/19 25 Discontinu ed(List Clean-Up) cyclobenzaprine (Flexeril) 10 MG tablet Take 1 (one) tablet by mouth 3 times daily as needed FOR MUSCLE SPASM 3 11/18/19 25 Discontinu ed(List Clean-Up) gabapentin (Neurontin) 100 MG capsule Take 6 (six) capsules by mouth at bedtime 3 11/18/19 25 Discontinu ed(List Clean-Up) meclizine (Antivert) 25 MG tablet Take 1 (one) tablet by mouth 2 times daily as needed For dizziness. 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 Neurosurgery [address] [place] [address], [place] [address] Gaurav Espinosa MD Status post lumbar spine surgery for decompression of spinal cord (Primary Dx); Lower extremity numbness; Cervical myelopathy (HCC) 12/01/2024 Travel 11/28/2024 7:18 AM CDT - 11/28/2024 11:59 PM CDT Hospital Encounter [facility] MRI [address] [place] [address] Jennifer Stover COMMERCIAL PROPERTY MANAGER-MAJOR ACCOUNT MANAGER Discharge Disposition: Home or Self Care 11/28/2024 Travel 11/17/2024 9:39 AM CDT - 11/17/2024 11:59 PM CDT Hospital Encounter [facility] DIAGNOSTIC RAD OP [address] [place] [address] Jennifer Stover COMMERCIAL PROPERTY MANAGER-MAJOR ACCOUNT MANAGER Discharge Disposition: Home or Self Care 11/17/2024 8:45 AM CDT Office Visit [facility] - Neurosurgery [address] [place] [phone] Gaurav Espinosa MD Lumbar stenosis with neurogenic claudication (Primary Dx) 11/17/2024 Travel from Last 3 Months Immunizations Immunization Administration Dates Next Due MODERNA [...] 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 [employer]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[employer] Not on file Not on file Not on fi le Last Filed Vital Signs Vital Sign Reading Time Taken Comments Blood Pressure 122/80 12/01/2024 8:56 AM CDT Pulse 67 12/01/2024 8:56 AM CDT Temperature 36.2 C (97.1 F) 12/01/2024 8:56 AM CDT Respiratory Rate 18 02/05/2023 9:14 AM CDT Oxygen Saturation 96% 12/01/2024 8:56 AM CDT Inhaled Oxygen Concentration 21% 03/18/2022 1 0:10 AM HEALTH PROGRAM DIRECTOR Weight 123.8 kg (273 lb) 12/01/2024 8:56 AM CDT Height 177.8 cm (5' 10) 12/01/2024 8:56 AM CDT Body Mass Index 39.17 12/01/2024 8:56 AM CDT Plan of Treatment Upcoming Encounters Date Type Department Care Team (Late st Contact Info) Description 12/15/2024 9:00 AM CDT Office Visit [facility] - Neurosurgery [address] [place] [address], [place] [phone] Gaurav Espinosa MD [address] [place] [address] [place] [address] Health Maintenance Due Date Last Done Comments COLOGMELIDA (AGES 45-75) - COL ON CA SCREENING 1955 COLON MONITORING 1955 COLONOSCOPY - COLON CA SCREENING 1955 CT COLONOGRAPHY - COLON CA SCREENING 1955 Colorectal Cancer Screening 1955 FIT - COLON CA SCREENING 1955 FLEX SIG - COLON CA SCREENING 1955 HEPATITIS C SCREENING 10/10/1971 DTAP/TDAP/TD VACCINES (1 - Tdap) 1972 PNEUMOCOCCAL VACCINE 50+ (1 of 1 - PCV) 10/15/2003 ZOSTER VACCINE (1 of 2) 10/15/2003 COVID-19 VACCINE (2 - 2023-2 5 season) 2024 06/21/2020 DEPRESSION SCREENING 05/05/2024 MEDICARE AWV CALENDAR YEAR 2024 INFLUENZA VACCINE (#1) 2025 Respiratory Syncytial Virus (RSV) Vaccine Pt: or over 60 yrs (1 - 1-dose 75+ series) 2028 HEPATITIS B VACCINE Aged Out No longe r eligible based on patient's age to complete this topic HIB VACCINE Aged Out No longer eligi ble based on patient's age to complete this topic HPV VACCINE Aged Out No longer eligi ble based on patient's age to complete this topic MENINGOCOCCAL (Group B) VACC INE SHARED DECISION-MAKING Aged Out No longer eligibl e based on patient's age to complete this topic MENINGOCOCCAL GROUPS A/C/Y/W VACCINE Aged Out No longer eligible b ased on patient's age to complete this topic Medical Devices Implanted Type Area Coke Worker Device Identifier Shelf Expiration Date Model / Serial / Lot Splnt Nsl Precut Ster Implanted:Qty: 1 on 03/25/2022 by Jacqueline Dhillon MD at [facility] [employer] [id number] / / Procedures Procedure Name Priority Date/Time Associated Diagnosis Comments MRI LUMBAR SPINE WO CONTRAST Routine 11/28/2024 7:53 AM CDT Lumbar stenosis with neurogenic claudication XR LUMBAR SPINE 4VW OR MORE Routine 11/17/2024 9:46 AM CDT Lumbar stenosis with neurogenic claudication from Last 3 Months Results * MRI Lumbar Spine Wo Contrast (11/28/2024 7:53 AM CDT) Anatomical Region Laterality Modality Spine Magnetic Resonan ce 12/06/2024 6:15 PM CDT Impressions 12/06/2024 6:22 PM CDT IMPRESSION: 1.Severe facet osteoarthritis on the left side at L3-L4, bilaterally at L4-L5 and L5-S1. 2.Right neural foraminal stenosis at L5-S1. Impingement on exiting right L5 nerve in the foramen is possible. 3.No spinal stenosis, lateral recess stenosis or impingement on traversing nerves is identified, throughout. 4.The conus and the imaged portion of the lower cord are normal. > Interpreting Provider: Clarence Arnold MD on 12/06/2024 6:22 PM Narrative 12/06/2024 6:22 PM CDT PROCEDURE: MRI LUMBAR SPINE WO CONTRAST DATE/TIME OF EXAM: 11/28/2024 7:53 AM CLINICAL INFORMATION: None relevant/not provided if blank. Indication: M48.062: Lumbar stenosis with neurogenic claudication MRI OF THE LUMBAR SPINE CONTRAST HISTORY: M48.062: Lumbar stenosis with neurogenic claudication TECHNIQUE: MRI of the lumbar spine was performed without contrast according to standard protocol on a 1.5 T Siemens MRI scanner. COMPARISON: Lumbar spine radiographs, 11/17/2024 FINDINGS: The alignment is normal. Vertebral bodies are normal in height. No fracture, spondylolisthesis, marrow edema or a malignant marrow replacing process is identified. Marrow signal intensity is normal. The conus medullaris terminates at the level of L1 and is normal. The imaged lower thoracic spinal cord is normal and is not compressed. Severe degenerative disc disease which shortening of disc space height and endplate osteophytosis, but without Modic type degenerative changes are seen at L5-S1. All lumbar discs are desiccated. No other evidence of significant degenerative disc disease is identified.. T10-T11 and T11-T12: These are only imaged on sagittal plane and appear normal in sagittal images. T12-L1: The discs, central canal, lower cord, neural foraminal, exiting nerves and the facets are normal. L1-L2: Borderline concentric disc bulging is not associated with a spinal stenosis. There is no significant facet osteoarthritis. The neural foramina and exiting nerves are normal. L2-L3: There is no posterior disc abnormality, central canal stenosis, lateral recesses stenosis, neural foraminal stenosis or neural impingement. No facet osteoarthritis is identified. L3-L4: Concentric posterior disc bulging and severe left as well as moderate to severe right facet osteoarthritis are present. The central canal is normal in midline. There is no significant lateral recesses stenosis or impingement on traversing nerves. There is encroachment of bulged disc into inferior recesses of neural foraminal causing mild bilateral neural foraminal stenosis along with facet osteoarthritis. There is no impingement on exiting nerves. L4-L5: Severe left and mild to moderate right facet osteoarthritis is present. There is no posterior disc abnormality, spinal stenosis, lateral recesses stenosis, neural foraminal stenosis or neural impingement. L5-S1: Advanced bilateral facet osteoarthritis and mild Concentric posterior disc bulging are not associated with spinal stenosis, lateral recesses stenosis or impingement on traversing nerves. Bilateral mild to moderate neural foraminal stenosis is present, right more than left. There is possible impingement on exiting right L5 nerve in the right neural foramen. The sacroiliac joints are not imaged. The subcutaneous fat, psoas muscles and the imaged retroperitoneal soft tissues are within normal limits. The posterior paravertebral muscles appear normal. Procedure Note Clarence Arnold MD - 12/06/2024 PROCEDURE: MRI LUMBAR SPINE WO CONTRAST DATE/TIME OF EXAM: 11/28/2024 7:53 AM CLINICAL INFORMATION: None relevant/not provided if blank. Indication: M48.062: Lumbar stenosis with neurogenic claudication MRI OF THE LUMBAR SPINE CONTRAST HISTORY: M48.062: Lumbar stenosis with neurogenic claudication TECHNIQUE: MRI of the lumbar spine was performed without contrastaccording to standard protocol on a 1.5 T Siemens MRI scanner. COMPARISON: Lumbar spine radiographs, 11/17/2024 FINDINGS: The alignment is normal. Vertebral bodies are normal in height. No fracture, spondylolisthesis, marrow edema or a malignant marrowreplacing process is identified. Marrow signal intensity is normal. The conus medullaris terminates at the level of L1 and is normal. The imaged lower thoracic spinal cord is normal and is not compressed. Severe degenerative disc disease which shortening of disc space heightand endplate osteophytosis, but without Modic type degenerative changes are seen at L5-S1. All lumbar discs are desiccated. No other evidence of significant degenerative disc disease is identified.. T10-T11 and T11-T12: These are only imaged on sagittal plane and appear normal in sagittal images. T12-L1: The discs, central canal, lower cord, neural foraminal, exiting nerves and the facets are normal. L1-L2: Borderline concentric disc bulging is not associated with aspinal stenosis. There is no significant facet osteoarthritis. The neuralforamina and exiting nerves are normal. L2-L3: There is no posterior disc abnormality, central canal stenosis, lateral recesses stenosis, neural foraminal stenosis or neuralimpingement. No facet osteoarthritis is identified. L3-L4: Concentric posterior disc bulging and severe left as well as moderate to severe right facet osteoarthritis are present. The central canal is normal in midline. There is no significant lateral recesses stenosis or impingement on traversing nerves. There is encroachment of bulged disc into inferior recesses of neural foraminal causing mild bilateral neural foraminal stenosis along with facet osteoarthritis.There is no impingement on exiting nerves. L4-L5: Severe left and mild to moderate right facet osteoarthritis is present. There is no posterior disc abnormality, spinal stenosis,lateral recesses stenosis, neural foraminal stenosis or neural impingement. L5-S1: Advanced bilateral facet osteoarthritis and mild Concentric posterior disc bulging are not associated with spinal stenosis, lateral recesses stenosis or impingement on traversing nerves. Bilateral mild to moderate neural foraminal stenosis is present, right more than left.There is possible impingement on exiting right L5 nerve in the right neural foramen. The sacroiliac joints are not imaged. The subcutaneous fat, psoasmuscles and the imaged retroperitoneal soft tissues are within normal limits.The posterior paravertebral muscles appear normal. IMPRESSION: 1.Severe facet osteoarthritis on the left side at L3-L4, bilaterally at L4-L5 and L5-S1. 2.Right neural foraminal stenosis at L5-S1. Impingement on exiting rightL5 nerve in the foramen is possible. 3.No spinal stenosis, lateral recess stenosis or impingement ontraversing nerves is identified, throughout. 4.The conus and the imaged portion of the lower cord are normal. > Interpreting Provider: Clarence Arnold MD on 12/06/2024 6:22 PM Jennifer Stover APRN-MAJOR ACCOUNT MANAGER MR ORDERABLES Rosie l Result * XR Lumbar Spine 4Vw or More (11/17/2024 9:46 AM CDT) Anatomical Region Laterality Modality Spine Digital Radiogra phy 11/18/2024 1:06 AM CDT Impressions 11/18/2024 1:07 AM CDT IMPRESSION: Postoperative changes from L3-L4 minimally invasive decompression or not well-characterized on this exam. Multilevel degenerative joint disc disease with facet arthropathy in the lower lumbar spine is not substantially changed. Grade 1 anterolisthesis of L5 on S1 is stable in all positions without dynamic instability. Multilevel degenerative disc disease, greatest and severe at L5-S1. > Interpreting Provider: Emilio Harrison MD on 11/18/2024 1:07 AM Narrative 11/18/2024 1:07 AM CDT PROCEDURE: XR LUMBAR SPINE 4VW OR MORE DATE/TIME OF EXAM: 11/17/2024 9:46 AM CLINICAL INFORMATION: None relevant/not provided if blank. Indication: M48.062: Lumbar stenosis with neurogenic claudication Additional History: COMPARISON: 12/11/2022, XR LUMBAR SPINE 4VW OR MORE Procedure Note Emilio Harrison MD - 11/18/2024 PROCEDURE: XR LUMBAR SPINE 4VW OR MORE DATE/TIME OF EXAM: 11/17/2024 9:46 AM CLINICAL INFORMATION: None relevant/not provided if blank. Indication: M48.062: Lumbar stenosis with neurogenic claudication Additional History: COMPARISON: 12/11/2022, XR LUMBAR SPINE 4VW OR MORE IMPRESSION: Postoperative changes from L3-L4 minimally invasive decompression or not well-characterized on this exam. Multilevel degenerative joint disc disease with facet arthropathy in the lower lumbar spine is not substantially changed. Grade 1 anterolisthesisof L5 on S1 is stable in all positions without dynamic instability.Multilevel degenerative disc disease, greatest and severe at L5-S1. > Interpreting Provider: Emilio Harrison MD on 11/18/2024 1:07 AM Jennifer A Ck COMMERCIAL PROPERTY MANAGER-MAJOR ACCOUNT MANAGER DIAGNOSTIC IMAGING O RDERABLES Final Result from Last 3 Months Insurance * Guarantor: PARUL LAUREN Account Type Relation to Patient Date of Phone Billing Address Personal/Family 1955 [address] [id number] * Guarantor: PARUL LAUREN Account Type Relation to Patient Date of Phone Billing Address Personal/Family [address] [phone] * Guarantor: PARUL LAUREN Account Type Relation to Patient Date of Phone Billing Address Personal/Family [address] [id number] Care Teams Box Builder Relationship Specialty Start Date End Date Aneta Canseco MD [address] [id number] [facility] - General 10/05/21
--- OUTSIDE RECORDS SUMMARY | 2024-12-14 11:31 | XMS_ITS | Clinical Summary ---
Author Organization [facility] Address [address] [place] [id number] Care Team Providers Care Director [facility] Center Name Role Phone Unavailable Primary Care Provider [...]
--- OUTSIDE RECORDS SUMMARY | 2024-12-14 11:31 | XMS_ITS | Clinical Summary ---
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 Gender Identity Not on file Sexual Orientation Not on file Last Filed Vital Signs Vital Sign Reading Time Taken Comments Blood Pressure - - Pulse - - Temperature - - Respiratory Rate - - Oxygen Saturation - - Inhaled Oxygen Concentration - - Weight 136.1 kg (300 lb) 05/10/2020 9:33 AM MARINE ENGINEERING TEACHER Height 177.8 cm (5' 10) 05/10/2020 9:33 AM MARINE ENGINEERING TEACHER Body Mass Index 43.05 05/10/2020 9:33 AM MARINE ENGINEERING TEACHER Plan of Treatment Health Maintenance Due Date [...] (1 of 2) 10/15/2003 INFLUENZA VACCINE (#1) 2024 01/06/2020 RSV VACCINE (60+ or ) (1 - 1-dose 75+ series) 2028 Insurance [employer] O MCR Care Teams Facialist Relationship Specialty Start Date End Date Aneta Canseco MD [address] [place] [id number] PCP - General Family Practice 05/09/20
--- OUTSIDE RECORDS SUMMARY | 2024-12-14 11:31 | XMS_ITS | Clinical Summary ---
Author Organization [facility] [address] Address [address] [place] [address] Care Team Providers Care Farm Management Teacher Name Role Phone Meghan Lua MD Unavailable [phone] Aneta Canseco MD Primary Care Provider Allergies [...] 3 5 Active chlorthalidone (HYGROTON) 25 mg tabletIndicatio ns:History [...] by mouth daily 90 tablet 5 Active Active Problems Problem Noted Date [...] History Medical History Date Comments Hypertension Hypertension [place] (my[place] infarction) (HCC) Arthritis Brain concussion 04/20/2017 Migraines 1970 Seizures (HCC) 04/2017 Sleep apnea 2014 Diabetes mellitus (HCC) Mixed conductive and sensori neural hearing loss Hearing loss due to recent ear infection and rupture of the ear drum. Hospitalized for IV antibiotics, and tube placement. Suffering from severe tinnitus and substantial hearing loss. Cataract 12/04/23 Family History Medical History Relation Name Comments Cancer Brother 1 Sotero Xin Stroke Brother 2 Sage Xin Stroke Brother 3 Sage Lauren Early Father [...] on file Legal Sex Male 2:36 AM ADVERTISING STRATEGIST Gender Identity Not on file Sexual Orientation Straight 03/05/2021 10 :12 AM CDT Obstetrics History Last Filed Vital Signs Vital Sign Reading Time Taken Comments Blood Pressure 116/70 07/06/2024 8:06 AM ADVERTISING STRATEGIST Pulse 81 07/06/2024 8:06 AM ADVERTISING STRATEGIST Temperature 36.7 C (98.1 F) 03/22/2024 2:09 PM ADVERTISING STRATEGIST Respiratory Rate 16 12/24/2023 8:00 AM CDT Oxygen Saturation 93% 07/06/2024 8:06 AM ADVERTISING STRATEGIST Inhaled Oxygen Concentration - - Weight 128.8 kg (284 lb) 07/06/2024 8:06 AM ADVERTISING STRATEGIST Height 177.8 cm (5' 10) 07/06/2024 8:06 AM ADVERTISING STRATEGIST Body Mass Index 40.75 07/06/2024 8:06 AM ADVERTISING STRATEGIST Plan of Treatment Health Maintenance Due Date Last Done Comments Colon Cancer Screening-Colonoscopy 1953 Depression Screening 1953 Fall Risk Assessment 1953 Hepatitis C Screening 1953 DTaP/Tdap/Td Vaccine (1 - Tdap) 1964 Hepatitis B Screening 10/15/1971 Zoster Vaccine (1 of 2) 10/15/2003 Well Visit 65+ 2018 Pneumococcal vaccine 65+ (2 of 2 - PCV20 or PCV21) 07/201902/04/2019 Influenza Vaccine (#1) 2025 02/04/2019 Insurance [facility] UHC MEDICARE ADVANTAGE AETNA MEDICARE GOLD Advance Directives For more information, please contact: [phone] * Full Code (Latest Code Status on File) Date Activated Date Inactivated Comments 04/14/2018 9:38 AM 04/18/2018 6:09 PM Care Teams Farm Management Teacher Relationship Specialty Start Date End Date Aneta Canseco MD PCP - General Family Practice 05/04/20 Meghan Lua MD Consulting Physician Critical Care Med 06/25/18
--- OUTSIDE RECORDS SUMMARY | 2024-12-14 11:31 | XMS_ITS | Encounter Summary ---
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
== END 2024-12-14 10:40 | disposition home or self-care (01) ==
PROVIDERS: PCP Family Medicine
DX: R20.0 Anesthesia of skin (principal); G95.9 Disease of spinal cord, unspecified; Z98.890 Other specified postprocedural states
CPT/HCPCS: 72141; 72146

== ENCOUNTER 2025-04-04 09:02 | Outpatient (CLI) | payer MEDICARE, SELFPAY ==
--- OUTSIDE RECORDS SUMMARY | 2025-04-04 09:42 | XMS_ITS | Clinical Summary ---
Author Organization [facility] Address [address] [place] [address] Care Team Providers Care Clinical Dietitian Name Role Phone Unavailable Primary Care Provider [...] of 2) 10/15/2003 COVID-19 Vaccine (4 - 2024-2 6 season) 2025 03/09/2021, 07/24/2020, 06/21/2020 Influenza Adult (#1) 2025 02/04/2019 RSV Immunization or 60+ Years (1 - 1-dose 75+ series) 2028 Pneumococcal Vaccine: 50+ Years Completed 02/09/2021, 02/26/2020, 02/04/2019 Hepatitis A Vaccines Aged Out No long er eligible based on patient's age to complete this topic Meningococcal B Vaccine Aged Out No l onger eligible based on patient's age to complete this topic Meningococcal Vaccine Aged Out No johanna mauri eligible based on patient's age to complete this topic RSV Immunizations Under 20 Months Aged Out No longer eligible b ased on patient's age to complete this topic
--- OUTSIDE RECORDS SUMMARY | 2025-04-04 09:42 | XMS_ITS | Encounter Summary ---
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
--- OUTSIDE RECORDS SUMMARY | 2025-04-04 09:42 | XMS_ITS | Clinical Summary ---
Author Organization [facility] [address] [facility] Address [address] [place] [address] Care Team Providers Care Press Tender Smoke Signal Name Role Phone Aneta Canseco MD Primary [...] on file Legal Sex Male 9:21 AM ORTHOTIST Gender Identity Not on file Sexual Orientation Not on file Last Filed Vital Signs Vital Sign Reading Time Taken Comments Blood Pressure - - Pulse - - Temperature - - Respiratory Rate - - Oxygen Saturation - - Inhaled Oxygen Concentration - - Weight 136.1 kg (300 lb) 05/10/2020 9:33 AM ORTHOTIST Height 177.8 cm (5' 10) 05/10/2020 9:33 AM ORTHOTIST Body Mass Index 43.05 05/10/2020 9:33 AM ORTHOTIST Plan of Treatment Health Maintenance Due Date Last Done Comments DIABETES ANNUAL FOOT EXAM 10/15/1971 DIABETES ANNUAL RETINAL EXAM 10/15/1971 DIABETES HBA1C Q 6 MONTHS 10/15/1971 DIABETES MICROALBUMIN ANNUAL SCREEN 10/15/1971 LDL CHOLESTEROL ANNUAL 10/15/1971 DTAP/TDAP/TD VACCINES (1 - Tdap) 1972 COLORECTAL SCREENING 1998 Colorectal Cancer Screening 1998 FIT-DNA Q 3 years 1998 FIT/FOBT Q 1 year 1998 Flex Sig/CT Colonography Q 5 years 1998 ZOSTER VACCINE (1 of 2) 10/15/2003 INFLUENZA VACCINE (#1) 2024 3, 02/26/2020, 01/06/2020, Additional history exists RSV VACCINE (60+ or ) (1 - 1-dose 75+ series) 2028 PNEUMOCOCCAL VACCINE 50+ YEARS Completed 1 , 02/26/2020, 02/04/2019 Insurance [facility] Care Teams Press Tender Smoke Signal Relationship Specialty Start Date End Date Aneta Canseco MD [address] [place] [address] PCP - General Family Practice 05/09/20
--- OUTSIDE RECORDS SUMMARY | 2025-04-04 09:43 | XMS_ITS | Clinical Summary ---
Author Organization [facility] [address] Address [address] [place] [address] Care Team Providers Care Print Line Inspector Name Role Phone Meghan Lua MD Unavailable [phone] Aneta Canseco MD Primary Care Provider Allergies Active Allergy Reactions Criticality Noted Date Comments Tetanus Toxoid, Adsorbed Nausea And Vomi ting,Other (See comments) Low 03/07/2016 High fever Medications metFORMIN (GLUCOPHAGE) 1,000 mg tablet 2 Active levalbuterol (XOPENEX HFA) 45 mcg/actuation inhaler INHALE 1 TO 2 PUFFS BY MOUTH EVERY 6 HOURS NEEDED FOR SHORTNESS OF BREATH OR WHEEZING 4 Active Incruse Ellipta 62.5 mcg/actuation blister with device Inhale 1 puff (62.5 mcg total) daily 5 Active SUMAtriptan (IMITREX) 100 mg tabletIndicatio ns:Migraine [...] by mouth daily 90 tablet 5 Active traMADoL (ULTRAM) 50 mg tablet Take by mouth every 8 (eight) hours as needed 5 Active topiramate (TOPAMAX) 50 mg tablet Take 1 tablet (50 mg total) by mouth 2 (two) times a day 5 Active meloxicam (MOBIC) 15 mg tablet 5 Active nitroglycerin (NITROSTAT) 0.[address] 1 tablet (0.4 mg total) under the tongue every 5 (five) minutes as needed for chest pain 25 tablet 3 5 Active azithromycin (ZITHROMAX) 250 mg tablet Take by mouth daily [facility] Active Problems Problem Noted Date Diagnosed Date Restless leg syndrome 02/17/2020 Obstructive sleep apnea 01/18/2019 Hypersomnia 01/18/2019 Periodic limb movement disorder 01/18/2019 HTN (hypertension) 04/14/2018 History of fainting spells of unknown cause 07/2017 CAD (coronary artery disease) 12/17/2016 History of coronary artery stent placement 12/17 Morbid obesity with BMI of 40.0-44.9, adult 12/03 Encounters Date Type Department Care Team Description 03/28/2025 1:00 PM SURVEY RODMAN Office Visit [facility] Medicine Neuro Sleep [address] 6[address] [place] [address] Zuleima Gonzales MD PhD CALI (obstructive sleep apnea) (Primary Dx); Sleep disturbance; Hypersomnia 01/10/2025 8:15 AM CDT Office Visit [facility] Cardiology at [address] [place] [address] Nathan Moses MD History of coronary artery stent placement (Primary Dx) from Last 3 Months Surgical History Surgery Date Site/Laterality Comments POLYPECTOMY Polypectomy OTHER SURGICAL HISTORY sphincterotomy COLONOSCOPY ANGIOPLASTY 03/11/2012 SPINE SURGERY March 18, 2022 Mi croscopic Spinal Surgery to repair nerve cord compression and bulging disk at L-3/L-4. Medical History Medical History Date Comments Hypertension Hypertension [place] (myocardial infarction) (HCC) Arthritis Brain concussion 04/20/2017 Migraines 1970 Seizures (HCC) 04/2017 Sleep apnea 2015 Diabetes mellitus Mixed conductive and sensori neural hearing loss [...] on file Legal Sex Male 2:36 AM SURVEY RODMAN Gender Identity Not on file Sexual Orientation Straight 03/05/2021 10 :12 AM CDT Last Filed Vital Signs Vital Sign Reading Time Taken Comments Blood Pressure 147/83 03/28/2025 12:37 PM SURVEY RODMAN Pulse 64 03/28/2025 12:37 PM SURVEY RODMAN Temperature 36.8 C (98.2 F) 03/28/2025 12:37 PM SURVEY RODMAN Respiratory Rate 16 12/24/2023 8:00 AM CDT Oxygen Saturation 96% 03/28/2025 12:37 PM SURVEY RODMAN Inhaled Oxygen Concentration - - Weight 126.6 kg (279 lb) 03/28/2025 12:37 PM SURVEY RODMAN Height 177.8 cm (5' 10) 03/28/2025 12:37 PM SURVEY RODMAN Body Mass Index 40.03 03/28/2025 12:37 PM SURVEY RODMAN Plan of Treatment Health Maintenance Due Date Last Done Comments Colon Cancer Screening-Colonoscopy 1953 Depression Screening 1953 Fall Risk Assessment 1953 Hepatitis C Screening 1953 DTaP/Tdap/Td Vaccine (1 - Tdap) 1964 Hepatitis B Screening 10/15/1971 Zoster Vaccine (1 of 2) 10/15/2003 Well Visit 65+ 2018 Influenza Vaccine (#1) 2025 3, 02/26/2020, 02/04/2019 Pneumococcal vaccine 65+ Completed 021, 02/26/2020, 02/04/2019 Insurance [facility] AETNA MEDICARE GOLD [facility] MEDICARE GOLD Advance Directives For more information, please contact: [phone] * Full Code (Latest Code Status on File) Date Activated Date Inactivated Comments 04/14/2018 9:38 AM 04/18/2018 6:09 PM Care Teams Print Line Inspector Relationship Specialty Start Date End Date Aneta Canseco MD PCP - General Family Practice 05/04/20 Meghan Lua MD Consulting Physician Critical Care Med 06/25/18
--- OUTSIDE RECORDS SUMMARY | 2025-04-04 09:43 | XMS_ITS | Clinical Summary ---
Author Organization [facility] Address [address] [place] [address] Care Team Providers Care .Net Architect Name Role Phone Aneta Canseco MD Primary Care Provider Source Comments [facility],non-owned Affiliates and Associated Physician Practices is amultiple site organization consisting of ambulatory clinics and hospital sitesin [place], [place], [place] and [place]. This disclosure is being madepursuant to the Care Everywhere program and may not contain all information available regarding this patient. 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 Hypersomnia 01/18/2019 Obstructive sleep apnea 01/18/2019 Periodic limb movement disorder 01/18/2019 HTN (hypertension) 04/14/2018 CAD (coronary artery disease) 11/29/2013 Encounters Date Type Department Care Team Description 03/23/2025 Telephone [facility] - Dermatology [address], [facility] [address] [place] [address] Brian Doyle MD Appointment 02/02/2025 9:15 AM CDT Office Visit [facility] - ENT [address] [place] [address] Fazal Patel, FELIPE-ETIOLOGY TEACHER Atypical migraine (Primary Dx); Dizziness and giddiness; Sensorineural hearing loss (SNHL) of both ears 02/02/2025 8:30 AM CDT Testing Visit [facility] - ENT [address], [place] [address] Varinder Ahumada, PhD Sensorineural hearing loss (SNHL) of both ears 02/02/2025 Travel 01/05/2025 8:45 AM CDT Office Visit [facility] - Neurosurgery [address] [place] [address] Gaurav Espinosa MD Acute vestibular syndrome (Primary Dx) 01/05/2025 8:39 AM CDT - 01/05/2025 11:59 PM CDT Hospital Encounter [facility] - Outside Imaging Discharge Disposition: Home or Self Care 01/05/2025 Travel from Last 3 Months Immunizations Immunization Administration Dates Next Due Covid Moderna booster monovalent 6y-11yr 0.5ml 0 06/21/2020 Covid Moderna primary monovalent 12+ yr 0.5mL ,07/24/2020 INFLUENZA VACCINE, HIGH-DOSE , QUADR. (FLUZONE HIGH-DOSE QUADRIVALENT; 65Y+), 0.7 ML (HD-IIV4) 03/14/2023,02/04/2019 INFLUENZA VACCINE, QUADR. (F LUZONE; FLULAVAL; FLUARIX; AFLURIA QUADRIVALENT; 6MO+), 0.5 ML (IIV4) 02/26/2020 MODERNA SARS-COV-2 COVID-19 VACCINE 0.25ML 06/21 PNEUMOCOCCAL PPSV23 02/09/2021,02/26/2020 Pneumococcal Pcv13 Conj 02/04/2019 Family History Medical History Relation Name Comments Stroke Brother 2 Heat Stroke Heart Failure Father Cancer - Colon Mother Relation Name Status Comments Brother 1 (Age 52) Brother 2 Father (Age 56) Mother (Age 68) Social History Tobacco Use Types Packs/Day Years Used Date Smoking Tobacco: Never Smokeless Tobacco: Never Tobacco Cessation:Counseling Given: Not Answered Alcohol Use Standard Drinks/Week Comments Yes 0 (1 standard drink = 0.6 oz pur e alcohol) rarely PHQ-2 Answer Date Recorded Patient Health Questionnaire-2 Score 0 12/15/2024 Sex and Gender Information Value Date Recorded Sex Assigned at Not on file Legal Sex Male 10:40 AM CDT Gender Identity Not on file Sexual Orientation Not on file 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 Not on file Not on fi le Last Filed Vital Signs Vital Sign Reading Time Taken Comments Blood Pressure 100/69 02/02/2025 9:25 AM CDT Pulse 64 02/02/2025 9:25 AM CDT Temperature 36.7 C (98 F) 01/05/2025 8:35 AM CDT Respiratory Rate 18 01/05/2025 8:35 AM CDT Oxygen Saturation 97% 01/05/2025 8:35 AM CDT Inhaled Oxygen Concentration 21% 03/18/2022 1 0:10 AM ARTIFICIAL MARBLE WORKER Weight 125.6 kg (277 lb) 02/02/2025 9:25 AM CDT Height 177.8 cm (5' 10) 02/02/2025 9:25 AM CDT Body Mass Index 39.75 02/02/2025 9:25 AM CDT Plan of Treatment Health Maintenance Due Date Last Done Comments COLOGUARD (AGES 45-75) - COLON CA SCREENING 1953 COLON MONITORING 1953 COLONOSCOPY - COLON CA SCREENING 1953 CT COLONOGRAPHY - COLON CA SCREENING 1953 Colorectal Cancer Screening 1953 FIT - COLON CA SCREENING 1953 FLEX SIG - COLON CA SCREENING 1953 HEPATITIS C SCREENING 10/10/1971 DTAP/TDAP/TD VACCINES (1 - Tdap) 1972 ZOSTER VACCINE (1 of 2) 10/15/2003 MEDICARE AWV CALENDAR YEAR 2024 COVID-19 VACCINE ( - season) 2025 03/09/2021, 07/24/2020, 06/21/2020, Additional history exists INFLUENZA VACCINE (#1) 2025 3, 02/26/2020, 02/04/2019 Respiratory Syncytial Virus (RSV) Vaccine Pt: or over 60 yrs (1 - 1-dose 75+ series) 2028 PNEUMOCOCCAL VACCINE 50+ Completed 021, 02/26/2020, 02/04/2019 DEPRESSION SCREENING Completed 12/15/2024 HEPATITIS B VACCINE Aged Out No longe [...] this topic Medical Devices Implanted Type Area Compliance Nurse Device Identifier Shelf Expiration Date Model / Serial / Lot Splnt Nsl Precut Ster Implanted:Qty: 1 on 03/25/2022 by Jacqueline Dhillon MD at [facility] [employer] [id number] / / Procedures Procedure Name Priority Date/Time Associated Diagnosis Comments AUDIOLOGY/TYMPANOME TRY ORDER Routine 02/02/2025 8:40 AM CDT MRI BRAIN OUTSIDE Routine 01/04/2025 8:4 1 AM CDT from Last 3 Months Results * AUDIOLOGY/TYMPANOMETRY ORDER (02/02/2025 8:40 AM CDT) Narrative Varinder Ahumada, PhD - 02/02/2025 8:40 AM CDT HISTORY: Parul Lauren is a 69 year old male was seen for an assessment of their hearing. Patient indicated that a video physical security specialist is not necessary for this appointment. The patient reports difficulty hearing in the left ear that can fluctuate, but seems to have improved. There is a report of dizziness. There is a report of tinnitus in the left ear. There is a report of otalgia in the left ear. There is not a report of noise exposure. There is not a history of hearing loss in the family. There is a history of previous ear surgery in the left ear (PE placement x2). These symptoms arose after a left TM perforation approximately 2 years ago. The patient is followed by neurology and has a history of vestibular therapy. He will be starting treatment for basal carcinoma this week. RESULTS: Pure-tone air/bone conduction testing revealed a mild sensorineural hearing in the right ear and a normal sloping to moderately severe sensorineural hearing in the left ear. Speech Rn Manager Thresholds is in good agreement with pure tone average(see speech audiometry for details). Speech understanding was excellent in the right ear and good in the left ear. Note: Left sided asymmetry. Immittance measures revealed a Type A tympanogram in the right ear, indicating normal middle ear function. Results for the left ear revealed a Type A tympanogram, indicating normal middle ear function in that ear. Findings were reviewed and discussed with Parul Lauren following the hearing evaluation. All questions were answered. PLAN: 1. The risks and benefits of my recommendations, as well as other treatment options were discussed today. 2. I recommend that the patient follow up with their facility, an ENT or PCP PRN. 3. HAE pending patient interest and medical clearance. Rishi Jhaveri, [facility] Varinder Ahumada, Ph.D., [place]., [facility] Language Assistant, Director Division of Clinical Audiology Department of Otolaryngology- Head & Neck Surgery [facility] Varinder Ahumada PhD AUDIOLOGY SERVICES ORDERABLES Fi nal Result * MRI Brain Outside (01/04/2025 8:41 AM CDT) Narrative [facility] - 01/05/2025 8:41 AM CDT This is a study from an outside facility that has been uploaded into PACS. us Provider [employer] IMAGING Final Result [facility] from Last 3 Months Insurance AETNA MEDICARE ADV * Guarantor: PARUL LAUREN Account Type Relation to Patient Date of Phone Billing Address Personal/Family [address] [place] [address] * Guarantor: PARUL LAUREN Account Type Relation to Patient Date of Phone Billing Address Personal/Family [address] [place] [address] Care Teams .Net Architect Relationship Specialty Start Date End Date Aneta Canseco MD [address] [place] [address] PCP - General 10/05/21
[2025-04-04 19:41] LABS: Hematocrit 39.2 % (42.0-52.0); Hemoglobin 12.5 g/dL (14.0-18.0); Immature Granulocyte Percent A 0.3 % (0-0.5); Lymphocytes Absolute Auto 2.22 K/mm3 (0.9-3.2); Mean Corpuscular HGB Conc 31.9 g/dl (32-36); Mean Corpuscular Hemoglobin 29.6 pg (26-34); Mean Corpuscular Volume 92.7 fl (80-100); Nucleated Red Blood Cells Absolute Auto 0.000 K/mm3 (0.0-0.012); Nucleated Red Blood Cells Perc 0.0 % (0.0-0.2); Platelet Count Result 288 k/mm3 (150-375); Red Blood Count 4.23 M/mm3 (4.6-6.20); White Blood Count 6.7 K/mm3 (4.5-10.0)
[2025-04-04 19:47] LABS: Alanine Aminotransferase 28 U/L (6-50); Albumin Level 4.5 g/dL (3.5-5.1); Alkaline Phosphatase 58 U/L (38-126); Anion Gap 8 mmol/L (4-12); Aspartate Amino Transferase 39 U/L (17-59); Bilirubin,Total 0.5 mg/dL (0.2-1.3); Blood Urea Nitrogen 17 mg/dL (9-20); Calcium 9.9 mg/dL (8.4-10.2); Carbon Dioxide 26 mmol/L (22-30); Chloride 106 mmol/L (98-107); Cholesterol 143 mg/dL (0-200); Estimated Glomerular Filt Rate 56; Glucose 89 mg/dL (65-110); HDL Direct 42 mg/dL; Potassium 4.3 mmol/L (3.4-5.0); Sodium 140 mmol/L (137-145); Total Protein 7.5 g/dL (6.3-8.2); Triglycerides 183 mg/dL (<150)
[2025-04-04 22:19] LABS: Hemoglobin A1C 5.9 % (<5.7)
== END 2025-04-04 09:03 | disposition home or self-care (01) ==
LOC: ANHGOSHLAB 09:03
PROVIDERS: PCP Nurse Practitioner Family; Visit Provider Nurse Practitioner Family
DX: E78.5 Hyperlipidemia, unspecified (principal); E11.9 Type 2 diabetes mellitus without complications; I10 Essential (primary) hypertension
CPT/HCPCS: 36415; 80053; 80061; 83036; 85025